=== PATIENT | female | born 1970 | race Caucasian/White ===

== ENCOUNTER 2024-03-25 10:55 | Inpatient (IN) ==
--- NOTE | 2024-03-25 11:31 | Emergency Department Note ---
History of Present Illness General Chief complaint: Illness Stated complaint: THROAT SURG/RECENT, HANDS NUMB, DIZZY, CHEST PAIN Time Seen by Provider: 03/25/24 11:13 History of Present Illness Provider complaint: Tingling chest pain difficulty breathing nausea 53-year-old female presents emergency department for tingling chest pain and shortness of breath. Patient states she recently had her parathyroid glands removed in [place] last week. She states since then she has been having the tingling in her face her arms and hands. She states that her calcium levels were within normal limits with the last checked. She states she has been taking Tums for her symptoms. No fevers. Home Medications Medication Instructions Recorded Confirmed Type dulaglutide 3 mg/0.5 mL 3 mg subcut UD 01/26/24 03/25/24 History subcutaneous pen injector ([facility]) glipizide 5 mg tablet 5 mg PO BID PRN Blood Sugar Level 01/26/24 03/25/24 History when testing lisinopril 2.5 mg tablet 2.5 mg PO HS 01/26/24 03/25/24 History meclizine 25 mg tablet 12.5 - 25 mg PO TID PRN Dizziness 01/26/24 03/25/24 History Or Vertigo scopolamine base 1 mg over 3 days 1 patch topical UD 01/26/24 03/25/24 History transdermal patch simvastatin 20 mg tablet 20 mg PO HS 01/26/24 03/25/24 History blood sugar diagnostic (OneTouch 02/12/24 02/26/24 History Ultra Test strips) lancets 33 gauge (OneTouch Delica 02/12/24 02/26/24 History Plus Lancet) furosemide 20 mg tablet 20 mg PO DAILY PRN Other 02/26/24 03/25/24 History levothyroxine 112 mcg tablet 112 mcg PO DAILY #30 tabs 03/03/24 03/25/24 Rx selenium 200 mcg tablet 200 mcg PO DAILY #30 tabs 03/03/24 03/25/24 Rx calcitriol 0.25 mcg capsule 0.25 mcg PO BID 03/25/24 03/25/24 History calcium carbonate (Tums Extra 600 mg PO TID 03/25/24 03/25/24 History Strength Smoothies) rizatriptan 10 mg disintegrating 10 mg PO DIRECTED PRN Migraine 03/25/24 03/25/24 History tablet Headache tramadol 50 mg tablet 50 mg PO DIRECTED PRN Pain 03/25/24 03/25/24 History Allergies Allergy/AdvReac Type Severity Reaction Status Date / Time canagliflozin Allergy Mild Verified 02/26/24 09:24 metformin Allergy Mild Verified 02/26/24 09:24 Past Med/Surg History Problem List (Updated 03/25/24 @ 14:23 by Jeffrey Horton MD) Chest pain (Acute) Hypomagnesemia (Acute) Thyroid nodule Medical History Hypertension Chronic daily headache 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 Hyperparathyroidism No pertinent family history COVID Surgical History History of cholecystectomy Family History Mother History of renal disease Thyroid disorder Father Heart disease Rheumatoid arthritis Brother Cancer Social History Smoking Status: Current every day smoker Tobacco Type: Cigarettes packs per day: 1; Hx Alcohol Use: No Hx Substance Use: No Preferred Language: Slovenian Feels Safe at Home: Yes Physical Exam Vital Signs Vital Signs - 24 hr 03/25/24 10:56 03/25/24 11:19 03/25/24 11:19 Temperature 36.6 C Temperature Source Temporal Artery Scan Pulse Rate 79 66 Pulse Rate [Finger] 62 Pulse Rhythm Regular Pulse Rhythm [Finger] Regular Pulse Strength [Finger] Normal Respiratory Rate 18 18 16 Respiratory Effort / Characteristics Non-Labored Spontaneous Respiratory Depth Normal Blood Pressure 179/111 H Blood Pressure [Right Arm] 156/91 H Blood Pressure Mean 133 Blood Pressure Mean [Right Arm] 112 Blood Pressure Position [Right Arm] Lying Pulse Oximetry 93 93 93 Oxygen Delivery Method Room Air Room Air Oxygen Flow Rate Sepsis Recent Fever Within 48 Hours No Sepsis New/Unexplained Change in Mental Status N/A Sepsis Action Taken by Nursing No Action Required 03/25/24 11:28 03/25/24 13:00 Temperature Temperature Source Pulse Rate 63 Pulse Rate [Finger] 78 Pulse Rhythm Pulse Rhythm [Finger] Regular Pulse Strength [Finger] Normal Respiratory Rate 18 Respiratory Effort / Characteristics Non-Labored Spontaneous Respiratory Depth Normal Blood Pressure Blood Pressure [Right Arm] 194/109 H Blood Pressure Mean Blood Pressure Mean [Right Arm] 137 Blood Pressure Position [Right Arm] Sitting Pulse Oximetry 94 Oxygen Delivery Method Room Air Nasal Cannula Oxygen Flow Rate 2 Sepsis Recent Fever Within 48 Hours Sepsis New/Unexplained Change in Mental Status Sepsis Action Taken by Nursing Physical Exam HENT: Exam performed. -Head: Normocephalic and atraumatic. -Right Ear: External ear normal. No mastoid erythema -Left Ear: External ear normal. No mastoid erythema -Mouth/Throat: The oropharynx is clear and moist. No trismus in the jaw. No dental abscesses or uvula swelling. No oropharyngeal exudate or tonsillar abscesses. EYES: Conjunctivae and EOM are normal. Pupils are equal, round, and reactive to light. Right eye exhibits no discharge. Left eye exhibits no discharge. No scleral icterus. NECK: Normal range of motion. Neck supple. No JVD present. Surgical incision is clean and dry. CV: Normal rate, regular rhythm, normal heart sounds and intact distal pulses. There is no peripheral edema. Palpable radial pulses bue. PULM/CHEST: Effort normal and breath sounds normal. No respiratory distress. No stridor. She has no wheezes. She has no rales. -Chest Wall: She exhibits no tenderness. ABD: The abdomen is soft. There is no tenderness. There is no rebound, no guarding MUSC/SKEL: Normal range of motion. There is no peripheral edema, tenderness or deformity. LYMPH: No cervical adenopathy. NEURO: Motor and sensation grossly intact. Patient was alert and oriented x 3. No cranial nerve deficit. Cerebellar tests wnl. Course Course 1113: The patient was evaluated in room C4. A complete history and physical exam was performed Cardiac monitoring: An order was placed for continuous cardiac monitoring. The monitor shows a rate of 70 with sinus rhythm interpreted by me 1220: Patient's D-dimer is elevated. Will obtain CT of the chest. Magnesium is low. Magnesium repletion will be started in the emergency department. Labs are otherwise unremarkable. 1347: Vital signs stable. CTA of the chest shows no PE. There is some edema with subcutaneous emphysema in the midline lower neck compatible with her recent surgery. Discussed with ENT at [place] Dr. Clifton. I read the CTA of the chest report verbatim to him I both he and I agree that the patient can be kept here and treated for hypomagnesemia and chest pain. He agreed that the CT findings are most likely postoperative changes and there is no need for acute surgical intervention. 1422: Spoke with Mckenzie Vidal Met the patient to Dr. Good's team. Administered Medications Magnesium Sulfate/Dextrose (Magnesium Sulfate / D5w) 1 gm in 100 mls @ 100 mls/hr IV Q1H MINDI Stop: 03/25/24 14:41 Last Admin: 03/25/24 14:03 Dose: 100 mls/hr Documented By: Infusion: 03/25/24 14:02 Dose: Infused Documented By: Admin: 03/25/24 13:04 Dose: 100 mls/hr Documented By: LIBIA Discontinued Medications Diphenhydramine HCl (Diphenhydramine 50 Mg/Ml Vial) 25 mg IV NOW STA Stop: 03/25/24 13:01 Last Admin: 03/25/24 13:12 Dose: 25 mg Documented By: LIBIA Acetaminophen (Ofirmev) 1,000 mg in 100 mls @ 400 mls/hr IV NOW STA Stop: 03/25/24 14:05 Last Admin: 03/25/24 13:59 Dose: 400 mls/hr Documented By: LIBIA Ioversol (Optiray 320 125ml) 94 ml IV ONCE ONE Stop: 03/25/24 12:50 Last Admin: 03/25/24 12:49 Dose: 94 ml Documented By: KATHARINA Lorazepam (Lorazepam 2 Mg/1 Ml Vial) 0.5 mg IV NOW STA Stop: 03/25/24 11:25 Last Admin: 03/25/24 11:57 Dose: 0.5 mg Documented By: LIBIA Metoclopramide HCl (Metoclopramide Hcl Inj 5 Mg/Ml 2 Ml Vial) 5 mg IV ONE ONE Stop: 03/25/24 13:01 Last Admin: 03/25/24 13:13 Dose: 5 mg Documented By: LIBIA Ondansetron HCl (Ondansetron Inj 2 Mg/Ml 2 Ml Vial) 4 mg IV NOW STA Stop: 03/25/24 11:32 Last Admin: 03/25/24 11:57 Dose: 4 mg Documented By: LIBIA Medical Decision Making Laboratory Data Attestation: I reviewed the patient's lab results. 03/25/24 11:15 03/25/24 11:15 Lab Results 03/25/24 Range/Units 11:15 WBC 14.13 H (4.8-10.8) K/ul RBC 5.14 (4.20-5.40) M/uL Hgb 15.2 (12.0-16.0) g/dl Hct 43.5 (37.0-47.0) % MCV 84.6 (80.0-100.0) fL MCH 29.6 (25.0-34.0) pg MCHC 34.9 (32.0-36.0) g/dL RDW Std Deviation 39.9 (36.4-46.3) fL RDW Coeff of Jeremias 12.9 (11.5-14.5) % Plt Count 279 (130-400) K/uL MPV 10.9 (9.4-12.4) fL Immature Gran % (Auto) 1.6 % Neut % (Auto) 68.7 % Lymph % (Auto) 21.9 % [place] % (Auto) 4.2 % Eos % (Auto) 3.0 % Baso % (Auto) 0.6 % Neut # (Auto) 9.71 H (1.40-6.50) K/uL Lymph # (Auto) 3.09 (1.20-3.40) K/uL [place] # (Auto) 0.59 (0.11-0.59) K/uL Eos # (Auto) 0.43 (0.00-0.50) K/uL Baso # (Auto) 0.09 (0.00-0.20) K/uL Immature Gran # (Auto) 0.22 H (0.01-0.20) K/uL PT 11.0 (9.0-12.0) Seconds INR 1.0 (0.9-1.1) APTT 28 (21-31) Seconds PTT Ratio 1.0 D-Dimer 570 H* (0-500) ug/L FEU Sodium 139 (136-145) mmol/L Potassium 3.4 L (3.5-5.1) mmol/L Chloride 102 (98-107) mmol/L Carbon Dioxide 24 (21-32) mmol/L Anion Gap 13 H (3-11) BUN 11 (6-23) mg/dl Creatinine 1.04 (0.6-1.2) mg/dl Est Cr Clr Drug Dosing 65.8 ml/min eGFR 63.47 BUN/Creatinine Ratio 10.6 (10-20) Glucose 250 H (70-99(Fasting)) mg/dl Calcium 9.9 (8.6-10.3) mg/dl Magnesium 1.1 L (1.7-2.4) mg/dl Troponin I High Sens 3.1 (0-14) pg/ml Lipase 17 (11-82) U/L Imaging Data Radiologist's Impression: Chest X-Ray 03/25/24 11:19 XR chest 1V portable CLINICAL HISTORY: Chest pain, nonspecific COMPARISON STUDY: Chest radiograph July 10, 2022. FINDINGS: Lung volumes are mildly diminished. Moderate linear bibasilar densities are present. There is no pneumothorax or pleural effusion. There is no evidence for pulmonary edema. Cardiomediastinal silhouette is unremarkable. IMPRESSION: Linear bibasilar densities. The findings favor atelectasis on this hypoventilatory study. Although less likely, an infectious process could appear similar. Follow-up PA and lateral chest radiograph in one month to ensure resolution are recommended. ACT 112: Negative or not required by law. Electronically signed by: Armando Santos M.D. 03/25/2024 11:50 AM Chest CTA 03/25/24 12:21 CT angio chest PE protocol CT DOSE: 745.96 mGy.cm HISTORY: 53 years-old Female with ro PE. Acute chest and neck pain with recent thyroid surgery. TECHNIQUE: Multiple CTA images of the chest were obtained after the intravenous administration of 120 ml Optiray. Coronal and sagittal MIPS were obtained from the axial data set and were submitted for review. All measurements were obtained according to NASCET criteria. A dose lowering technique was utilized adhering to the principles of ALARA. COMPARISON: Chest radiograph of same day FINDINGS: CTA: Heart is within normal limits in size. No pericardial effusion. Unremarkable thoracic aorta. Unremarkable pulmonary artery. CT CHEST: Soft tissue swelling with edema and subcutaneous emphysema noted within the lower neck/thyroid bed. Heterogeneity of the tissues is difficult to evaluate secondary to the edema. Small focus of subcutaneous stranding/hematoma within the left upper chest wall on image 179. There is stranding extending into the retrosternal/anterior mediastinum. No drainable fluid collections identified. No lymphadenopathy. Trace right and small left pleural effusions. There is no pneumothorax or pneumomediastinum. Bibasilar groundglass and linear consolidation. The central airways are patent. No acute upper abdominal abnormality. No acute fracture. IMPRESSION: 1. Edema with subcutaneous emphysema within the midline lower neck compatible with patient history of recent thyroid surgery with edema tracking into the superior mediastinum. No discrete drainable postoperative fluid collections identified. 2. No pulmonary emboli identified. 3. Trace left and small right pleural effusions with bibasilar linear consolidation favoring atelectasis. Pneumonia considered less likely. 4. No pneumothorax or lymphadenopathy. ACT 112: Negative or not required by law. The above report was generated using voice recognition software. It may contain grammatical, syntax or spelling errors. Electronically signed by: Greg Manuel M.D. 03/25/2024 1:10 PM ECG Data Attestation: I personally reviewed and interpreted this ECG as follows: Rate (beats per minute): 69 Rhythm: + normal sinus ECG Intervals/blocks: + Normal QRS, + Normal CO and + Normal QT-c ECG ST segments: + Normal ST segments MDM Narrative 1113: The patient was evaluated in room C4. A complete history and physical exam was performed Cardiac monitoring: An order was placed for continuous cardiac monitoring. The monitor shows a rate of 70 with sinus rhythm interpreted by me 1220: Patient's D-dimer is elevated. Will obtain CT of the chest. Magnesium is low. Magnesium repletion will be started in the emergency department. Labs are otherwise unremarkable. 1347: Vital signs stable. CTA of the chest shows no PE. There is some edema with subcutaneous emphysema in the midline lower neck compatible with her recent surgery. Discussed with ENT at [place] Dr. Clifton. I read the CTA of the chest report verbatim to him I both he and I agree that the patient can be kept here and treated for hypomagnesemia and chest pain. He agreed that the CT findings are most likely postoperative changes and there is no need for acute surgical intervention. 1422: Spoke with Mckenzie Vidal Met the patient to Dr. Good's team. Impression & Plan Hypomagnesemia, Chest pain Discharge Plan Visit Data Chief Complaint: Illness Stated Complaint: THROAT SURG/RECENT, HANDS NUMB, DIZZY, CHEST PAIN ED Provider: Jeffrey Horton Discharge Problem: Hypomagnesemia, Chest pain Patient Disposition: Admitted As Inpatient Forms Stand Alone Forms: My [facility] Prescriptions Prescriptions: No Action selenium 200 mcg tablet 200 mcg PO DAILY Qty: 30 2RF levothyroxine 112 mcg tablet 112 mcg PO DAILY Qty: 30 2RF (DME) OneTouch Ultra Test Strip See Rx Instructions .Route Rx Instructions: Test blood sugars three times a day (DME) lancets [OneTouch Delica Plus Lancet] 33 gauge misc See Rx Instructions .Route Rx Instructions: Test blood sugar three times a day furosemide 20 mg tablet 20 mg PO DAILY PRN (Reason: Other) meclizine 25 mg tablet 12.5 - 25 mg PO TID PRN (Reason: Dizziness Or Vertigo) simvastatin 20 mg tablet 20 mg PO HS scopolamine base 1 mg over 3 days patch 3 day 1 patch topical UD Rx Instructions: APPLY ONE PATCH TOPICALLY BEHIND ONE EAR 4 HOURS BEFORE EVENT AND CHANGE EVERY 72 HOURS DIRECTED lisinopril 2.5 mg tablet 2.5 mg PO HS glipizide 5 mg tablet 5 mg PO BID PRN (Reason: Blood Sugar Level when testing) Trulicity 3 mg/0.5 mL pen injector 3 mg SUBCUT UD Rx Instructions: not currently using but wanted left on list. Tums Extra Strength Smoothies 300 mg (750 mg) Tablet,Chewable 600 mg PO TID tramadol 50 mg tablet 50 mg PO DIRECTED PRN (Reason: Pain) rizatriptan 10 mg tablet,disintegrating 10 mg PO DIRECTED PRN (Reason: Migraine Headache) calcitriol 0.25 mcg capsule 0.25 mcg PO BID Referrals Referrals: Ada Waterman PA-C [Primary Care Provider] - Discharge Problem: Chest pain Qualifiers: Chest pain type: unspecified Qualified Code(s): R07.9 - Chest pain, unspecified
[2024-03-25 11:51] LABS: Basophils # (auto) 0.09 K/uL (0.00-0.20); Basophils % (auto) 0.6 %; Eosinophils # (auto) 0.43 K/uL (0.00-0.50); Hematocrit (blood only) 43.5 % (37.0-47.0); Hemoglobin 15.2 g/dl (12.0-16.0); Immature Granulocytes # (auto) 0.22 K/uL (0.01-0.20); Immature Granulocytes % (auto) 1.6 %; Lymphocytes # (auto) 3.09 K/uL (1.20-3.40); Lymphocytes % (auto) 21.9 %; Mean Corpuscular Hemoglobin 29.6 pg (25.0-34.0); Mean Corpuscular Hgb Conc 34.9 g/dL (32.0-36.0); Mean Corpuscular Volume 84.6 fL (80.0-100.0); Mean Platelet Volume 10.9 fL (9.4-12.4); Monocytes # (auto) 0.59 K/uL (0.11-0.59); Monocytes % (auto) 4.2 %; Neutrophils # (auto) 9.71 K/uL (1.40-6.50); Neutrophils % (auto) 68.7 %; Platelet Count 279 K/uL (130-400); RDW Coefficient of Variation 12.9 % (11.5-14.5); RDW Standard Deviation 39.9 fL (36.4-46.3); Red Blood Count 5.14 M/uL (4.20-5.40); White Blood Count 14.13 K/ul (4.8-10.8)
--- NOTE | 2024-03-25 11:52 | XRay Report ---
XR chest 1V portable CLINICAL HISTORY: Chest pain, nonspecific COMPARISON STUDY: Chest radiograph July 10, 2022. FINDINGS: Lung volumes are mildly diminished. Moderate linear bibasilar densities are present. There is no pneumothorax or pleural effusion. There is no evidence for pulmonary edema. Cardiomediastinal s ilhouette is unremarkable. IMPRESSION: Linear bibasilar densities. The findings favor atelectasis on this hypoventilatory study . Although less likely, an infectious process could appear similar. Follow-up PA and lateral chest ra diograph in one month to ensure resolution are recommended. ACT 112: Negative or not required by law. Electronically signed by: Armando Santos M.D. 03/25/2024 11:50 AM
[2024-03-25 11:53] LABS: BUN Creatinine Ratio 10.6 (10-20); Calcium 9.9 mg/dl (8.6-10.3); Creatinine Clr Calc Pharmacy 65.8 ml/min; Potassium 3.4 mmol/L (3.5-5.1)
[2024-03-25] MEDS: LORazepam 2 MG/1 ML VIAL IV STA (11:57)
[2024-03-25] MEDS: ONDANSETRON INJ 2 MG/ML 2 ML VIAL IV STA (11:57)
[2024-03-25 11:59] LABS: Troponin I High Sensitivity 3.1 pg/ml (0-14)
[2024-03-25 12:18] LABS: Partial Thromboplastin Time 28 Seconds (21-31)
[2024-03-25 12:20] LABS: D Dimer 570 ug/L FEU (0-500)
[2024-03-25 12:27] LABS: Magnesium 1.1 mg/dl (1.7-2.4)
[2024-03-25] MEDS: OPTIRAY 320 125ml IV ONE (12:49)
[2024-03-25] MEDS: MAGNESIUM SULFATE / D5W 1 GM/100 ML BAG IV SCH (13:04)
[2024-03-25] MEDS: diphenhydrAMINE 50 MG/ML VIAL IV STA (13:12)
--- NOTE | 2024-03-25 13:12 | CT Scan Report ---
CT angio chest PE protocol CT DOSE: 745.96 mGy.cm HISTORY: 53 years-old Female with ro PE. Acute chest and neck pain with recent thyroid surgery. TECHNIQUE: Multiple CTA images of the chest were obtained after the intravenous administration of 120 ml Optiray. Coronal and sagittal MIPS were obtained from the axial data set and were submitted for review. All measurements were obtained according to NASCET criteria. A dose lowering technique was u tilized adhering to the principles of ALARA. COMPARISON: Chest radiograph of same day FINDINGS: CTA: Heart is within normal limits in size. No pericardial effusion. Unremarkable thoracic aorta. Unremark able pulmonary artery. CT CHEST: Soft tissue swelling with edema and subcutaneous emphysema noted within the lower neck/thyroid bed. H eterogeneity of the tissues is difficult to evaluate secondary to the edema. Small focus of subcutane ous stranding/hematoma within the left upper chest wall on image 179. There is stranding extending in to the retrosternal/anterior mediastinum. No drainable fluid collections identified. No lymphadenopat hy. Trace right and small left pleural effusions. There is no pneumothorax or pneumomediastinum. Biba silar groundglass and linear consolidation. The central airways are patent. No acute upper abdominal abnormality. No acute fracture. IMPRESSION: 1. Edema with subcutaneous emphysema within the midline lower neck compatible with patient history of recent thyroid surgery with edema tracking into the superior mediastinum. No discrete drainable post operative fluid collections identified. 2. No pulmonary emboli identified. 3. Trace left and small right pleural effusions with bibasilar linear consolidation favoring atelecta sis. Pneumonia considered less likely. 4. No pneumothorax or lymphadenopathy. ACT 112: Negative or not required by law. The above report was generated using voice recognition software. It may contain grammatical, syntax o r spelling errors. Electronically signed by: Greg Manuel M.D. 03/25/2024 1:10 PM
[2024-03-25] MEDS: METOCLOPRAMIDE HCL INJ 5 MG/ML 2 ML VIAL IV ONE (13:13)
[2024-03-25] MEDS: ACETAMINOPHEN 1,000 MG/100 ML VIAL IV STA (13:59)
[2024-03-25] MEDS ORDERED: NICOTINE 14 MG/24 HR PATCH TD SCH (14:45)
[2024-03-25] MEDS ORDERED: NICOTINE 14 MG/24 HR PATCH TD ONE (15:00)
--- NOTE | 2024-03-25 15:09 | Electrocardiogram Report ---
Test Reason : Blood Pressure : */* mmHG Vent. Rate : 69 BPM Atrial Rate : 69 BPM P-R Int : 182 ms QRS Dur : 100 ms QT Int : 426 ms P-R-T Axes : 63 36 48 degrees QTcB Int : 456 ms Normal sinus rhythm Possible Left atrial enlargement Borderline ECG When compared with ECG of 26-Jan-2024 09:17, QT has lengthened Confirmed by Tom Stinson ([id number]) on 03/25/2024 3:08:32 PM Referred By: Sarah Dickerson Confirmed By: Tom Stinson
--- NOTE | 2024-03-25 15:32 | History & Physical Report ---
Date of Service March 25, 2024 Assessment & Plan (1) S/P parathyroidectomy: (2) Chest pain: (3) Hypomagnesemia: (4) Migraine: (5) T2DM (type 2 diabetes mellitus): Plan This is a 53-year-old female who has a significant past medical history of T2DM, diabetic peripheral neuropathy, tobacco use disorder, primary hyperparathyroidism and anxiety who presents to ED secondary to chest pain, shortness of breath, numbness and tingling to face and upper extremities. status post parathyroidectomy on 03/21/[address] Nixon Narayanan at [facility] Hypomagnesemia Hypokalemia Paraesthesias admit to tele supplement potassium and magnesium pt with poor oral intake over the last several days, IV fluid NSS +20 mEq KCl 80 cc/h for 3 L replace potassium orally, started on magnesium oxide 400 mg twice daily her calcium and ionized calcium are normal --Chest CTA:. Edema with subcutaneous emphysema within the midline lower neck compatible with patient history of recent thyroid surgery with edema tracking into the superior mediastinum. No discrete drainable postoperative fluid collections identified. This image was reviewed with [facility] director long term care ENT DR. Clifton which felt to be normal post op findings Hypoxia Atelectasis encourage incentive spirometry q1hr while away likely 2/2 to ativan administration, wean O2 as able procal negative, minimal cough, doubt pneumonia Chest pain feel likely related to above/anxiety but will r/o ACS while inpt trend trops, echocardiogram Anxiety pt does appear to be suffering from anxiety from recent medical events Consider anxiolytic vs psych consult if continues Tobacco abuse encourage cessation nicotine patch ordered Migraine hx pt with chronic head, n/v and paraesthesias which may be leading to complex migraine toradol prn, triptan prn, antiemetics consult neuro recent MRI 03/03/24 was unremarkable T2DM hold oral hypoglycemics, novolog per protocol A1C in Jan was 7.4, given poor intake will hold on lantus coverage for now HTN: pt hypertensive in ED, improving after ativan, continue lisinopril, monitor Hypothyroidism: continue supplement, tsh in a.m. DVT ppx: SCD for now, if to remain hospitalized > 24hr add chemical px FULL CODE PCP: Yoselin DIspo: admit to tele Pt was seen and examined in collaboration with Dr. Good, please see addendum I spent a total of 76 minutes reviewing notes, outpatient records, labs, medication, coordinating, documenting and providing care for this patient excluding time spent in the performance of separately billed services. History of Present Illness Chief Complaint: chest pain, sob, n/t to face and upper extremities Primary Care Provider: Ada Waterman PA-C This is a 53-year-old female who has a significant past medical history of T2DM, diabetic peripheral neuropathy, tobacco use disorder, primary hyperparathyroidism and anxiety who presents to ED secondary to chest pain, shortness of breath, numbness and tingling to face and upper extremities. Of significance patient underwent a parathyroid exploration with parathyroidectomy on 03/21/[address] Nixon Dickerson. Since that surgery she was discharged to home and has been feeling unwell. She has been not been eating/drinking much due to nausea. She also reports intermittent tingling to her face, lips and upper extremities. She states that she was told when this occurs that she is to chew 2 extra Tums, wait 30 minutes and if still present to 2 more. She is very anxious that nothing has gone as planned since prior to the surgery. She was told she was only going to have 1 parathyroid gland removed and ended up having 3.5. She states she is expected to go back to work next week and does not know how she is going to do so. She states last evening and this morning she developed substernal chest pain with associated shortness of breath that accompanied her numbness and tingling. The chest pain and shortness of breath lasted for approximately 10 to 15 minutes. It occurred while she was at rest. Nothing made it better or worse. She is never experienced any like this before. She feels that her chest pain occurs whenever she is very, "worked up." She states that prior to her surgery she has been having intermittent tearful episodes. She states this is much worse since her surgery. She did have outpatient blood work done the past 2 days that showed a normal calcium. Whenever she called her ENT she was referred to ED to her due to her symptoms. In ED patient remained hemodynamically stable. She was mildly hypertensive in the ED. She did become hypoxic requiring oxygen via nasal cannula supplementation after administration of IV Ativan due to anxiety. She did have a mild leukocytosis of 14,000. Her potassium was low at 3.4 and magnesium was low at 1.1. She underwent a chest CTA due to an elevated D-dimer which showed expected postoperative changes. ED provider spoke with on-call ENT at [facility] and reviewed imaging who agreed. She reports she lives and sister. Her sister helps manage her medical problems. 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 She smokes 1/2 ppd. She also reports chronic headaches. She has been using scopolamine patches regularly and even more than prescribed. She is been using the mostly daily. When she takes them off she gets a severe headache, nausea and vomiting. Allergies Allergy/AdvReac Type Severity Reaction Status Date / Time canagliflozin Allergy Mild Verified 02/26/24 09:24 metformin Allergy Mild Verified 02/26/24 09:24 Home Medications Medication Instructions Recorded Confirmed Type dulaglutide 3 mg/0.5 mL 3 mg subcut UD 01/26/24 03/25/24 History subcutaneous pen injector (Trulicity) glipizide 5 mg tablet 5 mg PO BID PRN Blood Sugar Level 01/26/24 03/25/24 History when testing lisinopril 2.5 mg tablet 2.5 mg PO HS 01/26/24 03/25/24 History meclizine 25 mg tablet 12.5 - 25 mg PO TID PRN Dizziness 01/26/24 03/25/24 History Or Vertigo scopolamine base 1 mg over 3 days 1 patch topical UD 01/26/24 03/25/24 History transdermal patch simvastatin 20 mg tablet 20 mg PO HS 01/26/24 03/25/24 History blood sugar diagnostic (OneTouch 02/12/24 02/26/24 History Ultra Test strips) lancets 33 gauge (OneTouch Delica 02/12/24 02/26/24 History Plus Lancet) furosemide 20 mg tablet 20 mg PO DAILY PRN Other 02/26/24 03/25/24 History levothyroxine 112 mcg tablet 112 mcg PO DAILY #30 tabs 03/03/24 03/25/24 Rx selenium 200 mcg tablet 200 mcg PO DAILY #30 tabs 03/03/24 03/25/24 Rx calcitriol 0.25 mcg capsule 0.25 mcg PO BID 03/25/24 03/25/24 History calcium carbonate (Tums Extra 600 mg PO TID 03/25/24 03/25/24 History Strength Smoothies) rizatriptan 10 mg disintegrating 10 mg PO DIRECTED PRN Migraine 03/25/24 03/25/24 History tablet Headache tramadol 50 mg tablet 50 mg PO DIRECTED PRN Pain 03/25/24 03/25/24 History Past Med/Surg History Problem List (Updated 03/25/24 @ 15:53 by Mckenzie Vidal PA-C) Migraine S/P parathyroidectomy Chest pain (Acute) Hypomagnesemia (Acute) Thyroid nodule Medical History (Updated 03/25/24 @ 15:53 by Mckenzie Vidal PA-C) T2DM (type 2 diabetes mellitus) Hypertension Chronic daily headache 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 Hyperparathyroidism No pertinent family history COVID Surgical History (Updated 03/25/24 @ 15:53 by Mckenzie Vidal PA-C) History of cholecystectomy Family History Mother History of renal disease Thyroid disorder Father Heart disease Rheumatoid arthritis Brother Cancer Social History Smoking Status: Current every day smoker Tobacco Type: Cigarettes packs per day: 1; Hx Alcohol Use: No Hx Substance Use: No Preferred Language: Micronesian Feels Safe at Home: Yes Review of Systems Review of Systems: All systems reviewed & are unremarkable except as noted in HPI & below Physical Exam Physical Exam: Constitutional: WD/WN, acute ill appearing F, appears exhausted, anxious, vitals as above, sitting up in bed, pleasant, conversing easily Head: Normocephalic, Atraumatic Eyes: PERRL, conjunctivae normal, anicteric sclerae ENMT: external ear and nose normal, oropharynx dry Neck: trachea midline, no thyromegaly +incision, surrounding soft tissue edema no erythema Respiratory: normal respiratory effort, lungs clear to auscultation, +rales at based no wheeze/rhonchi. Normal insp/exp effort, no accessory muscle use Cardiovascular: RRR, no murmur, no edema Vessels: no JVD or carotid bruit Chest: normal inspection of chest Abdomen: normal bowel sounds, soft, nontender, no hepatosplenomegaly Musculoskeletal: no cyanosis or clubbing, extremities motor strength 5/5 Skin: no rashes, warm and dry normal turgor Neurologic: PERRL, EOMI, accommodation nl, no face palsy, no dysarthria CN's II-XI intact bilaterally and moves all extremities Psychiatric: A+Ox3, euthymic affect Lymphatic: no cervical or axillary lymphadenopathy : deferred Results & Data Results & Data Vital Signs (Past 12 Hours) Vital Signs Temp Pulse Pulse Resp BP BP Pulse Ox 03/25/24 14:00 66 18 152/92 H 94 03/25/24 13:00 78 18 194/109 H 94 03/25/24 11:28 63 03/25/24 11:19 66 16 93 03/25/24 11:19 62 18 156/91 H 93 03/25/24 10:56 36.6 C 79 18 179/111 H 93 O2 Del Method O2 Flow Rate 03/25/24 14:00 Nasal Cannula 4 03/25/24 13:00 Room Air, Nasal Cannula 2 03/25/24 11:28 03/25/24 11:19 Room Air 03/25/24 11:19 Room Air 03/25/24 10:56 Laboratory Results I have independently reviewed and interpreted patient's admitting labs including CBC, CMP, PTT, PT/INR, mag and troponin. Diagnostic Findings Chest X-Ray 03/25/24 11:19 XR chest 1V portable CLINICAL HISTORY: Chest pain, nonspecific COMPARISON STUDY: Chest radiograph July 10, 2022. FINDINGS: Lung volumes are mildly diminished. Moderate linear bibasilar densities are present. There is no pneumothorax or pleural effusion. There is no evidence for pulmonary edema. Cardiomediastinal silhouette is unremarkable. IMPRESSION: Linear bibasilar densities. The findings favor atelectasis on this hypoventilatory study. Although less likely, an infectious process could appear similar. Follow-up PA and lateral chest radiograph in one month to ensure resolution are recommended. ACT 112: Negative or not required by law. Electronically signed by: Armando Santos M.D. 03/25/2024 11:50 AM Chest CTA 03/25/24 12:21 CT angio chest PE protocol CT DOSE: 745.96 mGy.cm HISTORY: 53 years-old Female with ro PE. Acute chest and neck pain with recent thyroid surgery. TECHNIQUE: Multiple CTA images of the chest were obtained after the intravenous administration of 120 ml Optiray. Coronal and sagittal MIPS were obtained from the axial data set and were submitted for review. All measurements were obtained according to NASCET criteria. A dose lowering technique was utilized adhering to the principles of ALARA. COMPARISON: Chest radiograph of same day FINDINGS: CTA: Heart is within normal limits in size. No pericardial effusion. Unremarkable thoracic aorta. Unremarkable pulmonary artery. CT CHEST: Soft tissue swelling with edema and subcutaneous emphysema noted within the lower neck/thyroid bed. Heterogeneity of the tissues is difficult to evaluate secondary to the edema. Small focus of subcutaneous stranding/hematoma within the left upper chest wall on image 179. There is stranding extending into the retrosternal/anterior mediastinum. No drainable fluid collections identified. No lymphadenopathy. Trace right and small left pleural effusions. There is no pneumothorax or pneumomediastinum. Bibasilar groundglass and linear consolidation. The central airways are patent. No acute upper abdominal abnormality. No acute fracture. IMPRESSION: 1. Edema with subcutaneous emphysema within the midline lower neck compatible with patient history of recent thyroid surgery with edema tracking into the superior mediastinum. No discrete drainable postoperative fluid collections identified. 2. No pulmonary emboli identified. 3. Trace left and small right pleural effusions with bibasilar linear consolidation favoring atelectasis. Pneumonia considered less likely. 4. No pneumothorax or lymphadenopathy. ACT 112: Negative or not required by law. The above report was generated using voice recognition software. It may contain grammatical, syntax or spelling errors. Electronically signed by: Greg Manuel M.D. 03/25/2024 1:10 PM Medications Administered Medication List Potassium Chloride/Sodium Chloride (Normal Saline W/20 Meq Kcl) 20 meq in 1,000 mls @ 80 mls/hr IV .[id number] [facility] Stop: 03/26/24 04:59 Last Admin: 03/25/24 15:37 Dose: 80 mls/hr Documented By: LIBIA Discontinued Medications Diphenhydramine HCl (Diphenhydramine 50 Mg/Ml Vial) 25 mg IV NOW STA Stop: 03/25/24 13:01 Last Admin: 03/25/24 13:12 Dose: 25 mg Documented By: LIBIA Magnesium Sulfate/Dextrose (Magnesium Sulfate / D5w) 1 gm in 100 mls @ 100 mls/hr IV Q1H MINDI Stop: 03/25/24 14:41 Last Infusion: 03/25/24 15:25 Dose: Infused Documented By: Admin: 03/25/24 14:03 Dose: 100 mls/hr Documented By: Infusion: 03/25/24 14:02 Dose: Infused Documented By: Admin: 03/25/24 13:04 Dose: 100 mls/hr Documented By: LIBIA Acetaminophen (Ofirmev) 1,000 mg in 100 mls @ 400 mls/hr IV NOW STA Stop: 03/25/24 14:05 Last Infusion: 03/25/24 14:20 Dose: Infused Documented By: Admin: 03/25/24 13:59 Dose: 400 mls/hr Documented By: LIBIA Ioversol (Optiray 320 125ml) 94 ml IV ONCE ONE Stop: 03/25/24 12:50 Last Admin: 03/25/24 12:49 Dose: 94 ml Documented By: KATHARINA Lorazepam (Lorazepam 2 Mg/1 Ml Vial) 0.5 mg IV NOW STA Stop: 03/25/24 11:25 Last Admin: 03/25/24 11:57 Dose: 0.5 mg Documented By: LIBIA Metoclopramide HCl (Metoclopramide Hcl Inj 5 Mg/Ml 2 Ml Vial) 5 mg IV ONE ONE Stop: 03/25/24 13:01 Last Admin: 03/25/24 13:13 Dose: 5 mg Documented By: LIBIA Nicotine (Nicotine 14 Mg/24 Hr Patch) 1 patch TD ONE ONE Stop: 03/25/24 15:01 Last Admin: 03/25/24 15:37 Dose: 1 patch Documented By: LIBIA Ondansetron HCl (Ondansetron Inj 2 Mg/Ml 2 Ml Vial) 4 mg IV NOW STA Stop: 03/25/24 11:32 Last Admin: 03/25/24 11:57 Dose: 4 mg Documented By: LIBIA Potassium Chloride (Potassium Chloride Crtab 20 Meq Tabcr) 40 meq PO NOW STA Stop: 03/25/24 14:29 Last Admin: 03/25/24 15:36 Dose: 40 meq Documented By: LIBIA ECG Additional Comments: I have independently reviewed and interpreted patient's admitting EKG which revealed: 69 bpm, NSR Code Status & VTE Plan Code Status FULL CODE Supervising Physician Co-Signing Physician Notes Attending addendum: The patient was seen and examined in emergency room She is status post parathyroidectomy on 03/21/2024 in [place] and she has not been feeling well since then Complains to have nausea and vomiting and has not been eating that much She also has tingling involving the upper extremities mainly on the right than the left side and tingling and numbness involving the face associated with headache which has been ongoing since January 04 when the diagnosis was made initially She has noted to be very anxious in the emergency room and with remarkable findings of hypomagnesemia and hypokalemia in the blood test on examination Lying in bed with anxiety and has been requiring 4 L to maintain saturation Hemodynamically stable, afebrile with a blood pressure on the upper side at 158/93 Chestclear to auscultate bilaterally HeartS1-S2, regular Extremities negative for any edema CNSalert, awake and oriented x 3. No focal sensory or motor deficit appreciated Her admission labs, EKG and imaging studies reviewed. Hyperparathyroidism status post recent surgery on of this monthcalcium level remains normal Ongoing headache since January with negative MRI scan as an outpatient recently Will get a neurology consult likely she has migraine with tingling and numbness involving the hands face and headache mostly on the left side Electrolyte imbalance mainly with hypomagnesemia and hypokalemia which will be replaced and monitor Agree with assessment plan as outlined above by Nancy Morillo PA-C and take the full responsibility of care Dr Maty Good (2) Chest pain Chest pain type: unspecified Qualified Code(s): R07.9 - Chest pain, unspecified
[2024-03-25] MEDS: POTASSIUM CHLORIDE CRTAB 20 MEQ TABCR PO STA (15:36)
[2024-03-25] MEDS: NSS + 20MEQ KCL 20 MEQ/1,000 ML BAG IV SCH (15:37)
[2024-03-25] MEDS: NICOTINE 14 MG/24 HR PATCH TD ONE (15:37)
[2024-03-25 15:48] LABS: Magnesium 1.9 mg/dl (1.7-2.4)
[2024-03-25 15:52] LABS: Troponin I High Sensitivity 2.6 pg/ml (0-14)
[2024-03-25] MEDS: KETOROLAC TROMETHAMINE 15 MG/ML VIAL IV ONE (15:53)
[2024-03-25] MEDS ORDERED: DEXTROSE 50% 50 ML SYRINGE IV PRN (17:16)
[2024-03-25] MEDS ORDERED: GLUCOSE 40% GEL 15 GM TUBE PO PRN (17:16)
[2024-03-25] MEDS ORDERED: GLUCAGON FOR INJ 1 MG VIAL SQ PRN (17:16)
[2024-03-25] MEDS ORDERED: CARBOHYDRATES FOR HYPOGLYCEMIA PO PRN (17:16)
[2024-03-25] MEDS ORDERED: GLUCOSE 10 TAB/TUBE PO PRN (17:16)
[2024-03-25] MEDS: INSULIN ASPART PER UNIT CHARGE SC SCH (17:55)
[2024-03-25] MEDS: ONDANSETRON INJ 2 MG/ML 2 ML VIAL IV PRN (17:55)
--- NOTE | 2024-03-25 18:19 | Neurology Consultation ---
Date of Consultation March 25, 2024 Assessment & Plan (1) Hypomagnesemia: face and bilateral hand numbness in a 53F with a PMH of migraine, anxiety and tobacco abuse. Symptoms have currently resolved. Neurologic symptoms associated with migraine still follow a typical localization pattern and arent bilateral. In this situation since the symptoms resolved with repletion of her Mg I suspect that this was the cause. Plan no further neurologic work up Telehealth Consultation Telehealth Information Telehealth Information: I performed this visit using a real-time telehealth connection between my location and the patients location ([facility]). After connecting through interactive tele-video, patient was identified by name and date of and/or wristband check.Patient (or authorized healthcare textile machinery sales representative) was informed that this was a telemedicine visit and it was being conducted confidentially over secure lines. My office door was closed and no one else was present in the room with me.Patient (or authorized healthcare textile machinery sales representative) provided consent to proceed with the visit, expressed an understanding of privacy and security of the telemedicine visit, and gave permission to have a hospital textile machinery sales representative in the room in order to assist with the visit and to conduct portions of the visit, as needed. I informed the patient (or authorized healthcare textile machinery sales representative) that I reviewed their record and presented the opportunity for them to ask any questions regarding the visit today. The patient agreed to participate. History of Present Illness Reason for Consultation: migraine Attending Physician: Daniel Good MD History of Present Illness Regina Purcell is a 53F with a PMH of migraine, tobacco abuse, anxiety, HTN and HLD who presented to the ED with numbness of both hands and her face. She went to be last night feeling normal. When she woke up this morning she noticed numbness in her bilateral hands and around her mouth. This numbness then started spreading up her arms and covered her whole face. She has a long history of headaches but has never had numbness like this before. The symtpoms lasted until she was in the ED and then they resolved after she was given magnesium. She recently had her parathyroid glands removed and hasn't been eating or drinking as a result. She denies any feves, chest pain or SOB. She denies vision changes, slurred speech, weakness or vertigo. Allergies Allergy/AdvReac Type Severity Reaction Status Date / Time canagliflozin Allergy Mild Verified 02/26/24 09:24 metformin Allergy Mild Verified 02/26/24 09:24 Home Medications Medication Instructions Recorded Confirmed Type dulaglutide 3 mg/0.5 mL 3 mg subcut UD 01/26/24 03/25/24 History subcutaneous pen injector (Trulicity) glipizide 5 mg tablet 5 mg PO BID PRN Blood Sugar Level 01/26/24 03/25/24 History when testing lisinopril 2.5 mg tablet 2.5 mg PO HS 01/26/24 03/25/24 History meclizine 25 mg tablet 12.5 - 25 mg PO TID PRN Dizziness 01/26/24 03/25/24 History Or Vertigo scopolamine base 1 mg over 3 days 1 patch topical UD 01/26/24 03/25/24 History transdermal patch simvastatin 20 mg tablet 20 mg PO HS 01/26/24 03/25/24 History blood sugar diagnostic (OneTouch 02/12/24 02/26/24 History Ultra Test strips) [facility] 02/12/24 02/26/24 History Plus Lancet) furosemide 20 mg tablet 20 mg PO DAILY PRN Other 02/26/24 03/25/24 History levothyroxine 112 mcg tablet 112 mcg PO DAILY #30 tabs 03/03/24 03/25/24 Rx selenium 200 mcg tablet 200 mcg PO DAILY #30 tabs 03/03/24 03/25/24 Rx calcitriol 0.25 mcg capsule 0.25 mcg PO BID 03/25/24 03/25/24 History calcium carbonate (Tums Extra 600 mg PO TID 03/25/24 03/25/24 History Strength Smoothies) rizatriptan 10 mg disintegrating 10 mg PO DIRECTED PRN Migraine 03/25/24 03/25/24 History tablet Headache tramadol 50 mg tablet 50 mg PO DIRECTED PRN Pain 03/25/24 03/25/24 History Patient History Medical History (Updated 03/25/24 @ 15:53 by Mckenzie Vidal PA-C) T2DM (type 2 diabetes mellitus) Hypertension Chronic daily headache 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 Hyperparathyroidism No pertinent family history COVID Surgical History (Updated 03/25/24 @ 15:53 by Mckenzie Vidal PA-C) History of cholecystectomy Family History Mother History of renal disease Thyroid disorder Father Heart disease Rheumatoid arthritis Brother Cancer Social History Smoking Status: Current every day smoker Tobacco Type: Cigarettes packs per day: 1; Cigarettes Per Day: 1 pack; Second Hand Exposure: Yes; Do You Dip or Chew Tobacco: No; Hx Alcohol Use: No Hx Substance Use: No Preferred Language: Luxembourgish Communication Ability: Effective Insurance Application Investigator Required: No Beliefs That Will Affect Care: None Current Living Situation: Spouse Feels Safe at Home: Yes Safety Concerns: Feels Safe At This Time Assistive Devices: None Physical Exam Mental Status:alert, oriented to time, place, person, normal recent memory, normal remote memory, normal attention span, normal concentration, normal language, and normal fund of knowledge Cranial Nerves: CN 2 - no visual defect on confrontation and pupils round, equal, reactive to light CN 3, 4, 6 - extra-ocular movements intact and no nystagmus CN 5 - facial sensation intact CN 7 - no facial asymmetry CN 8 - intact hearing CN 9, 10 - palate symmetric, normal gag CN 11 - good shoulder shrug CN 12 - tongue midline MOTOR: Strength was at least antigravity throughout, Pronator drift was absent, and There were no abnormal movements SENSATION: intact GAIT: deferred COORDINATION: no ataxia with finger to nose testing and heel to pruitt testing REFLEXES: cannot assess over telemedicine Results & Data Vital Signs (Past 12 Hours) Vital Signs Temp Pulse Pulse Resp BP BP Pulse Ox 03/25/24 18:03 75 03/25/24 17:23 36.9 C 62 18 177/88 H 92 03/25/24 17:17 60 18 158/93 H 94 03/25/24 17:16 03/25/24 16:00 60 18 158/93 H 94 03/25/24 15:35 74 03/25/24 15:30 69 18 142/85 H 94 03/25/24 14:00 66 18 152/92 H 94 03/25/24 13:00 78 18 194/109 H 94 03/25/24 11:28 63 03/25/24 11:19 66 16 93 03/25/24 11:19 62 18 156/91 H 93 03/25/24 10:56 36.6 C 79 18 179/111 H 93 Pulse Ox O2 Del Method O2 Del Method O2 Flow Rate 03/25/24 18:03 03/25/24 17:23 Room Air 03/25/24 17:17 Nasal Cannula 4 03/25/24 17:16 92 Room Air 03/25/24 16:00 Nasal Cannula 4 03/25/24 15:35 03/25/24 15:30 Nasal Cannula 3 03/25/24 14:00 Nasal Cannula 4 03/25/24 13:00 Room Air, Nasal Cannula 2 03/25/24 11:28 03/25/24 11:19 Room Air 03/25/24 11:19 Room Air 03/25/24 10:56 Laboratory Results Abnormal Lab Results 03/25/24 03/25/24 03/25/24 11:15 15:19 17:34 WBC 14.13 H RBC 5.14 Hgb 15.2 Hct 43.5 MCV 84.6 MCH 29.6 MCHC 34.9 RDW Std Deviation 39.9 RDW Coeff of Jeremias 12.9 Plt Count 279 MPV 10.9 Immature Gran % (Auto) 1.6 Neut % (Auto) 68.7 Lymph % (Auto) 21.9 [place] % (Auto) 4.2 Eos % (Auto) 3.0 Baso % (Auto) 0.6 Neut # (Auto) 9.71 H Lymph # (Auto) 3.09 [place] # (Auto) 0.59 Eos # (Auto) 0.43 Baso # (Auto) 0.09 Immature Gran # (Auto) 0.22 H PT 11.0 INR 1.0 APTT 28 PTT Ratio 1.0 D-Dimer 570 H* Sodium 139 Potassium 3.4 L Chloride 102 Carbon Dioxide 24 Anion Gap 13 H BUN 11 Creatinine 1.04 Est Cr Clr Drug Dosing 65.8 eGFR 63.47 BUN/Creatinine Ratio 10.6 Glucose 250 H POC Glucose 149 H Calcium 9.9 Ionized Calcium 1.17 Magnesium 1.1 L 1.9 Troponin I High Sens 3.1 2.6 Lipase 17 Procalcitonin < 0.02
[2024-03-25 19:50] LABS: Magnesium 1.7 mg/dl (1.7-2.4)
[2024-03-25 19:58] LABS: Troponin I High Sensitivity 3.5 pg/ml (0-14)
[2024-03-25] MEDS: ACETAMINOPHEN 325 MG TAB PO PRN (20:46)
[2024-03-25] MEDS: CALCITRIOL 0.25 MCG CAPSULE PO SCH (20:47)
[2024-03-25] MEDS: MAGNESIUM OXIDE 400 MG TAB PO SCH (20:48)
[2024-03-25] MEDS: SIMVASTATIN 20 MG TAB PO SCH (20:48)
[2024-03-25] MEDS: lisinopril 2.5 MG TAB PO SCH (20:48)
[2024-03-25] MEDS: CALCIUM CARBONATE 500 MG CHEWABLE TAB PO SCH (20:48)
[2024-03-25] MEDS ORDERED: KETOROLAC TROMETHAMINE 15 MG/ML VIAL IV PRN (21:00)
[2024-03-26] MEDS: LEVOTHYROXINE SODIUM 112 MCG TABLET PO SCH (06:09)
[2024-03-26 07:54] LABS: Basophils # (auto) 0.08 K/uL (0.00-0.20); Basophils % (auto) 0.5 %; Hematocrit (blood only) 39.3 % (37.0-47.0); Hemoglobin 13.7 g/dl (12.0-16.0); Immature Granulocytes # (auto) 0.04 K/uL (0.01-0.20); Immature Granulocytes % (auto) 0.3 %; Lymphocytes # (auto) 3.37 K/uL (1.20-3.40); Lymphocytes % (auto) 22.5 %; Mean Corpuscular Hemoglobin 30.1 pg (25.0-34.0); Mean Corpuscular Hgb Conc 34.9 g/dL (32.0-36.0); Mean Corpuscular Volume 86.4 fL (80.0-100.0); Mean Platelet Volume 10.8 fL (9.4-12.4); Monocytes # (auto) 0.51 K/uL (0.11-0.59); Monocytes % (auto) 3.4 %; Neutrophils % (auto) 69.3 %; Platelet Count 256 K/uL (130-400); RDW Standard Deviation 40.7 fL (36.4-46.3); Red Blood Count 4.55 M/uL (4.20-5.40)
[2024-03-26] MEDS: RIZATRIPTAN BENZOATE MLT 10 MG TAB PO PRN (08:19)
[2024-03-26] MEDS: amLODIPine BESYLATE 5 MG TAB PO ONE (08:42)
--- NOTE | 2024-03-26 08:42 | Hospitalist Progress Note ---
Date of Service March 26, 2024 Assessment & Plan (1) S/P parathyroidectomy: (2) Complaint of paresthesia: (3) Electrolyte disturbance: (4) Headache: Plan Regina Purcell is a 53y/o F with PMHx significant for DM type II, diabetic peripheral neuropathy, primary hyperparathyroidism s/p parathyroidectomy [performed on 03/21/2024 @ [facility]], HTN, hypothyroidism, tobacco use disorder and anxiety who presented to the ED on 03/25/2024 secondary to chest pain/shortness of breath and numbness/tingling of her face plus upper extremities. Primary Hyperparathyroidism S/P Parathyroidectomy, Paresthesias & Electrolyte Abnormalities: Patient recently underwent parathyroidectomy on 03/21/[address] Sarah Dickerson [Otolaryngology] at [facility]. Patient with poor oral intake for several days prior to arrival due to nausea. She has been experiencing numbness/tingling of her face and bilateral upper extremities postoperatively. Outpatient calcium levels were WNL at 9.6 on 03/22/2024 and 9.9 on 03/24/2024. She was subsequently referred to the ED for evaluation by Dr. Dickerson to assess for dehydration and electrolyte imbalances. K+ 3.4, Mag 1.1 on presentation. She was started on IVF w/ 1L NSS + 20mEq KCl x 2 bags. Also received oral K+ supplementation. IV Mag repleted in the ED x 2 bags. She was also started on po magnesium oxide 400mg BID. Her calcium and ionized calcium were WNL on admission. D-Dimer was elevated at 570 in the ED; chest CTA revealed edema subcutaneous emphysema within the midline lower neck, no discrete drainable postoperative fluid collections identified. Chest CTA results were reviewed with [facility] on-call ENT, Dr. Tapan Clifton - felt the results reflected normal postoperative findings. Patient has previously seen [facility] [Nicola Santiago PA-C & Dr. Arthur Chaparro] on 02/26/2024. Thursday, 03/26 K+ improved to 4.3, Mag still low at 1.5 - will replete with IV Mag x 1 bag. IVF stopped 2/2 improved K+ level. Calcium 8.5, ionized calcium 1.06 this morning. Case was discussed with [facility] --> calcitriol increased to 0.5mcg TID & calcium carbonate increased to 1000mg TID. Vitamin D 21.3 today; vitamin D supplementation started. Continue to monitor and manage electrolytes PRN. She already has a follow-up appointment scheduled with [facility] on Thursday (03/28/2024). Constipation: Patient with c/o constipation this morning. She was agreeable with starting a scheduled bowel regimen; will continue to monitor. Hypoxia - RESOLVED & Atelectasis: Was noted to be mildly hypoxic in the ED, likely 2/2 IV Ativan administration for increased anxiety. Now off supplemental O2, saturation well on RA. SOB improved. Procalcitonin was negative, patient with minimal cough. CXR on admission revealed linear bibasilar densities favoring atelectasis. Doubt any pneumonia development at this time. Continue to encourage incentive spirometry use. Chest Pain - RESOLVED: Feel likely related to above/anxiety, low suspicion for ACS at this time. EKG on presentation reviewed and without any evidence of overt acute ischemia. Repeat troponins have been negative and patient reports her chest pain has resolved. Echo performed today -> results personally reviewed and unremarkable; patient updated on echo results. Tobacco Use Disorder: Smokes 1/2 PPD, continue to encourage cessation. Nicotine patch on board. Anxiety: Patient suffering from worsening anxiety from recent medical events. Continue PRN po Ativan, PRN po hydroxyzine added on today. Continue to monitor. Headache, History of Migraines: Headache and BUE/facial paraesthesias have not fully resolved. Head CT performed today and was unremarkable. Nausea also persists. Continue PRN IV Toradol/Maxalt. PRN IV Phenergan added on today as IV Zofran has been ineffective. Neurology consult reviewed -> Suspected her hypomagnesemia was the cause of her headache. Recent outpatient brain MRI on 03/03/24 was unremarkable. Continue to manage her electrolytes PRN as per above. DM Type II: Hold home agents, Hgb A1c was 7.4% in January 2024. BSG has been elevated/variable, continue BSG checks ACHS. Glycemic pharmacy consulted for assistance with insulin dosing/management --> Now on basal/bolus regimen for tighter BSG control. Continue to monitor BSG. HTN: Patient hypertensive in ED which improved s/p IV Ativan. She still continues to be mildly hypertensive. Continue home lisinopril dose for now, however the dose may need to be adjusted. Continue to monitor BP closely. Other Chronic Medical Conditions: Hypothyroidism --> Can continue home levothyroxine, TSH WNL this admission. DVT Prophylaxis: SCDs/TEDs for now Code Status: FULL CODE PCP: Ada Waterman PA-C Disposition: Currently admitted in PCU/Telemetry, anticipate discharge home tomorrow with close endocrinology (as per above) and PCP follow-up appointments. Will need work release form. Patient plans on arranging short-term disability paperwork with her PCP. Patient seen in collaboration with Dr. Farah. Please see addendum. I spent a total of 65 minutes coordinating, documenting, and providing care for this patient excluding time spent in the performance of separately billed services. This included personally reviewing all current laboratories and imaging studies, medical reconciliation, outpatient chart review and discussion with specialists. This chart was completed in part utilizing Speech Voice Recognition Software. Grammatical errors, random word insertions, pronoun errors, and incomplete sentences are an occasional consequence of this system due to software limitations, ambient noise, and hardware issues. Any formal questions or concerns about the content, text, or information contained within the body of this dictation should be directly addressed to the provider for clarification. Admission and Anticipated Discharge Date Admission Date: March 25, 2024 Supervising Physician Co-Signing Physician Notes Patient seen and examined I discussed with patient and family (, daughter, son-in-law, sister) who were at bedside this AM Discussed findings, plan. I also educated them on patient's symptoms related to her recent parathyroidectomy and changes in the body associated with that. I called and reviewed patient with [employer] Dr Du who recommends increasing calcitriol to 0.5mcg TID, calcium carbonate to 1000mg TID and start Vit D 20193N weekly. He stated he has appt with patient in office on Thu and they will take mgt from there. I went back afterwards and updated patient about the changes and [employer]'s recs and need for follow up with him on Thursday. I reviewed the rest of her workup (CTs, TTE) with her which were unremarkable. Patient seen and examined Agree with plans as detailed by Irma Wilkes PA-C I spent a total of 65 minutes coordinating, documenting and providing care for this patient excluding time spent in performance of separately billed services Subjective Patient seen and examined this morning. She was still complaining of a headache. She was also endorsing some ongoing nausea still. No episodes of vomiting today but she has had very poor oral intake due to the nausea. She denied any chest pain or shortness of breath. Her parathyroidectomy surgical site bandaging was dry and intact; she denied any drainage from this area. No trouble swallowing or difficulty breathing. She was on her way down to get a head CT this morning when I saw her due to the persistent headache she has been having therefore I had not seen any family at that time. I went back and spoke with the patient and her family again this afternoon to go over her head CT and echocardiogram results. Her sister, daughter and niece were present at bedside. Patient was still complaining of ongoing nausea; the IV Zofran does not seem to be working as effectively therefore she was agreeable to trial some PRN IV Phenergan. Still no episodes of vomiting however she continues with poor oral intake due to the persistent nausea. She is very tearful and anxious about her anticipated discharge tomorrow as she is worried her symptoms will not improve. She was agreeable to trying as needed oral hydroxyzine for anxiety. She did have a 0.5mg dose of oral Ativan this morning with some relief in her anxiety at that time, however it has gotten worse again as the medication seems to be wearing off. We discussed her calcium and vitamin D levels today. Dr. Farah had discussed her case with [facility], Dr. Chaparro (she recently saw [facility] on 02/26/2024) --> Recommendation was to increase her po calcitriol from 0.25mcg BID to 0.5mcg TID and her po calcium carbonate from 500mg TID to 1000mg TID. She was also started on po vitamin D supplementation. She was given a dose of IV calcium gluconate as well. Patient and her family were agreeable with these medication changes. Patient is anxious to see how her symptoms change moving forward as she has felt rather horrible since her parathyroidectomy (persistent nausea, fatigue). Patient and her family are requesting her to be discharged home with as needed antiemetics and anxiolytics. Patient already has a follow-up appointment with [facility] on Thursday (03/28) with Nicola Santiago PA-C. Review of Systems Review of Systems: At least ten systems reviewed and negative, except as noted in the subjective section. Physical Exam Physical Exam: General: Ill-appearing F, NAD, sitting up wheelchair for transportation to CT, anxious, appears lethargic/exhausted. A+Ox3, conversing appropriately. HEENT: Normocephalic/conjunctivae normal. Soft tissue neck edema, mild erythema, + parathyroidectomy incision, trachea midline. Oropharynx somewhat dry. Respiratory: Normal respiratory effort, lungs clear to auscultation bilaterally, no wheeze/rales/rhonchi. No accessory muscle use or tachypnea. Cardiovascular: Regular rate, rhythm, normal peripheral pulses, no BLE edema. Vessels: No evidence of JVD. Abdomen/GI: Normal bowel sounds, soft, nontender to palpation in all quadrants. Extremities/Musculoskeletal: No cyanosis or clubbing, tremulous BUE movements, able to actively move all extremities, extremity motor strength intact. Neurologic: No overt focal deficits, CN's II-XI not formally tested but appear grossly intact bilaterally. Skin: No rashes, normal color, warm/dry. Some mild erythema around parathyroidectomy incision but no drainage, overlying bandaging is dry and intact. Results & Data Results & Data Vital Signs (Past 12 Hours) Vital Signs Temp Pulse Pulse Resp BP Pulse Ox O2 Del Method 03/26/24 07:55 36.8 C 78 19 168/98 H 94 Room Air 03/26/24 07:31 Room Air 03/26/24 03:09 36.7 C 77 16 156/92 H 91 Room Air 03/25/24 23:07 74 03/25/24 22:57 37.0 C 58 L 19 146/75 H 93 Room Air Laboratory Results Short CBC 03/26/24 Range/Units 07:18 WBC 15.00 H (4.8-10.8) K/ul Hgb 13.7 (12.0-16.0) g/dl Hct 39.3 (37.0-47.0) % Plt Count 256 (130-400) K/uL [facility] 03/26/24 07:18 Sodium 144 Potassium 4.3 D Chloride 110 H Carbon Dioxide 23 BUN 12 Creatinine 1.08 Glucose 177 H Calcium 8.5 L Liver Function 03/26/24 Range/Units 07:18 Total Bilirubin 0.7 (0.2-1.0) mg/dl AST 13 (13-39) U/L ALT 40 (7-52) U/L Alkaline Phosphatase 77 (34-104) U/L Albumin 3.8 (3.4-5.0) gm/dl Diagnostic Findings Head CT 03/26/24 10:19 CT OF THE HEAD WITHOUT CONTRAST CLINICAL HISTORY: Persistent headache. COMPARISON STUDY: MRI of the brain August 25, 2006. Head CT and CTA of the head January 26, 2024. CT DOSE: 580.53 mGy.cm TECHNIQUE: Helical axial images of the head were obtained without IV contrast. Automated exposure control was utilized for the study. A dose lowering technique was utilized adhering to the principles of ALARA. FINDINGS: No acute intracranial hemorrhage, midline shift or mass effect is present. The ventricular system is unremarkable. The basal cisterns are patent. No extra-axial collections are present. There are no findings to suggest acute dural sinus thrombosis or acute territorial infarct. No significant calvarial abnormalities are present. Visualized portions of the sinuses and mastoid air cells are clear. IMPRESSION: No acute intracranial findings. ACT 112: Negative or not required by law. Electronically signed by: Armando Santos M.D. 03/26/2024 11:14 AM (4) Headache Headache chronicity pattern: acute headache Headache type: unspecified Intractability: intractable Qualified Code(s): R51.9 - Headache, unspecified
[2024-03-26 08:44] LABS: Albumin Globulin Ratio 1.3 (0.9-2); Albumin Level 3.8 gm/dl (3.4-5.0); BUN Creatinine Ratio 11.1 (10-20); Bilirubin,Total 0.7 mg/dl (0.2-1.0); Calcium 8.5 mg/dl (8.6-10.3); Magnesium 1.5 mg/dl (1.7-2.4); Phosphorus 4.5 mg/dl (2.5-4.9); Potassium 4.3 mmol/L (3.5-5.1); Thyroid Stimulating Hormone 1.889 uIu/ml (0.300-4.500); Total Protein 6.8 gm/dl (6.0-8.3); Troponin I High Sensitivity 3.8 pg/ml (0-14)
[2024-03-26] MEDS: POLYETHYLENE (MIRALAX) 17 GM PACK PO PRN (09:49)
--- OUTSIDE RECORDS SUMMARY | 2024-03-26 10:15 | External Medical Summary | Summary of Care ---
Author Name Unknown Organization [facility] Address [address] [facility] [address] Phone [phone] Care Team Providers Care Hollow Tile Partition Erector Name Role Phone Ada Waterman PA-C Primary Care Provider [phone] Reason for Visit * Reason Onset Date Comments Medication Question 03/09/2024 Encounter Details Date Type Department Care Team (Late st Contact Info) Description 03/09/2024 Telephone [facility] [address] [place] [address] Ada Waterman PA-C [address] [place] [address] Medication Question Allergies Active Allergy Reactions Criticality Noted Date Comments Canagliflozin Other (Please comment) Low 10/08/2022 Uti, yeast Metformin Diarrhea Low 10/08/2022 Constant diarrhea Oxycodone Nausea/vomiting 03/21/2024 documented as of this encounter (statuses as of 03/24/2024) Medications OneTouch Ultra In Vitro Strip use 1 TEST STRIP to TEST three times a day before meals 023 Active OneTouch Delica Plus [id number] use three times a day before meals 023 Active glipiZIDE 5 MG Oral Tablet (Glucotrol)Indica tions:Type 2 diabetes mellitus with hemoglobin A1c goal of less than 7.0% ([facility]) TAKE 1 TABLET BY MOUTH TWICE DAILY 30 MINUTES BEFORE MEALS 180 Tablet 1 Active Promethazine HCl 25 MG Oral Tablet (Phenergan) Take 1 Tablet by mouth every 6 hours as needed for Other (dizziness). or vomiting 12 Tablet Active Additional Information Patient not taking.Reported on 03/21/2024 Lisinopril 2.5 MG Oral Tablet (Prinivil) TAKE 1 TABLET BY MOUTH IN THE MORNING 90 Tablet 3 Active Levothyroxine Sodium 100 MCG Oral Tablet (Levoxyl) TAKE 1 TABLET BY MOUTH ONCE DAILY ON AN EMPTY STOMACH 90 Tablet 3 Active Additional Information Patient taking differently: 112 mcg Oral [id number], TAKE 1 TABLET BY MOUTH ONCE DAILY ON AN EMPTY STOMACH, Reported on 03/21/2024 Simvastatin 20 MG Oral Tablet (Zocor) Take 1 Tablet by mouth at bedtime. 90 Tablet 1 Active Ketorolac Tromethamine 10 MG Oral Tablet (Toradol)Indicati ons:Intractable paroxysmal hemicrania, unspecified chronicity pattern Take 1 Tablet by mouth 4 times a day as needed for Pain, Severe. Do not take for longer than 5 days 20 Tablet Active Scopolamine 1 MG/3DAYS Transdermal Patch 72 Hour (Transderm-Scop)I ndications:Dizzin ess Place patch on skin , replace daily for extreme dizziness and nausea 30 Patch 1 Active Rizatriptan Benzoate 10 MG Oral Tablet Disintegrating (Maxalt-RECRUITER COORDINATOR)Indic ations:Intractabl e paroxysmal hemicrania, unspecified chronicity pattern Take 1 Tablet by mouth as needed for Migraine. at onset of headache, may repeat every 2 hours. No more than 3 pills in 24 hours 20 Tablet 3 Active ALPRAZolam 0.25 MG Oral Tablet (Xanax)Indication s:Dizziness,Intra ctable paroxysmal hemicrania, unspecified chronicity pattern One tab 1 hour prior to mri, repeat 15 min prior, at start and during if needed 5 Tablet Active Additional Information Patient not taking.Reported on 03/21/2024 Trimethobenzamide HCl 300 MG Oral CapsuleIndication s:Nausea and vomiting, unspecified vomiting type Take 1 Capsule by mouth in the morning and 1 Capsule at noon and 1 Capsule in the evening and 1 Capsule before bedtime. 40 Capsule 1 Active Additional Information Patient not taking.Reported on 03/21/2024 Meclizine HCl 25 MG Oral Tablet (Antivert)Indicat ions:Dizziness Take 0.5-1 Tablets by mouth 3 times a day as needed for Dizziness. 30 Tablet 1 Active Sulfamethoxazole- Trimethoprim 800-160 MG Oral Tablet (Bactrim DS)Indications:Re current UTI Take 1 Tablet by mouth in the morning and 1 Tablet before bedtime. Do all this for 7 days. Until gone. 14 Tablet 1 024 2023 Discontinued Meclizine HCl 25 MG Oral Tablet (Antivert)Indicat ions:Dizziness Take 0.5-1 Tablets by mouth 3 times a day as needed for Dizziness. 30 Tablet 1 024 2023 Discontinued(R sanjay) Hospital, Clinic, or Other Facility Administered Medication Ordered Dose Route Frequency Start Date End Date Status cefTRIAXone (Rocephin) (350 mg/mL) inj dilution 1,000 mgIndications:Acute cystitis without hematuria 1000 mg IM Q24H 03/09/2024 Active documented as of this encounter (statuses as of 03/24/2024) Active Problems Problem Noted Date Diagnosed Date Hyperparathyroidism, primary 02/22/2024 Type 2 diabetes mellitus wit h hemoglobin A1c goal of less than 7.0% 01/12/2023 Diabetic peripheral neuropathy 01/12/2023 Chest pain 02/05/2000 STRESS REACT NEC 02/05/2000 Tobacco use disorder 02/05/2000 Abnormal weight gain 02/05/2000 documented as of this encounter (statuses as of 03/24/2024) Resolved Problems Problem Noted Date Diagnosed Date Resolved Date ADVANCE DIRECTIVE INFORMATION 09/23/2005 03/07/2024 Overview (09/23/2005): Information offered-patient declined documented as of this encounter (statuses as of 03/24/2024) Immunizations Name Administration Dates Next Due TDAP, Age 7 and older, IM (Adacel) 06/14/2020 documented as of this encounter Social History Tobacco Use Types Packs/Day Years Used Date Smoking Tobacco: Every Day Cigarettes 1 10 Smokeless Tobacco: Never Alcohol Use Standard Drinks/Week Comments No 0 (1 standard drink = 0.6 oz pur e alcohol) PHQ-2 Answer Date Recorded PHQ Adult Total Score 0 01/14/2024 Hunger Vital Sign Answer Date Recorded Within the past 12 months, y ou worried that your food would run out before you got the money to buy more. Never true 01/05/20 24 Within the past 12 months, t he food you bought just didn't last and you didn't have money to get more. Never true 01/05/2024 Childcare Answer Date Recorded Do you feel overwhelmed with taking care of a child, family member or friend? No 01/05/2024 Does your family need help f inding childcare? (Household - for ages 0-17 years) Not on file 01/05/2024 Clothing Answer Date Recorded Have you been unable to get clothing when it was really needed? No 01/05/2024 Is your family able to get c lothes or diapers when needed? (Household - for ages 0-17 years) Not on file 01/05/2024 Personal Safety Answer Date Recorded Do you feel unsafe or have concerns for your saf ety? No 03/21/2024 Do you have concerns for you r family's safety? (Household - for ages 0-17 years) Not on file 03/21/2024 Utilities Answer Date Recorded Do you have trouble paying y our heating, water, or electric bill? No 03/21/2024 Is your family able to pay t he heat, water, or electric bill? (Household - for ages 0-17 years) Not on file 03/21/2024 Does your family have access to good internet? (Household - for ages 0-17 years) Not on file 03/21/2024 Employment Status Answer Date Recorded Are you unemployed or without regular income? No 01/05/2024 Does the household have a re gular source of income? (Household - for ages 0-17 years) Not on file 01/05/2024 Social Connections Answer Date Recorded How often do you feel lonely or isolated from th ose around you? Never 01/05/2024 Financial Resource Strain Answer Date R ecorded Do you have any trouble payi ng for your medications, or do you think you might in the future? No 01/05/2024 Does your family have troubl e paying for medicine? (Household - for ages 0-17 years) Not on file 01/05/2024 Transportation Needs Answer Date Record ed Do you have trouble getting a ride to medical visits or work? (Adult - for ages 18 years and over) Not on file 03/21/2024 Does your family have a hard time getting a ride to doctors visits? (Household - for ages 0-17 years) Not on file 03/21/2024 Has lack of transportation k ept you from medical appointments, meetings, work, or from getting things needed for daily living? Check all that apply. No 03/21/2024 Do you (or your family) have trouble finding or paying for a ride (transportation)? (Household - for ages 0-17 years) Not on file 03/21/2024 Housing Stability Answer Date Recorded Do you currently live in a s helter or have no steady place to sleep at night? No 03/21/2024 Do you think you are at risk of becoming homeless? (Adult - for ages 18 years and over) Not on file 03/21/2024 Does your family worry about paying for your home or becoming homeless? (Household - for ages 0-17 years) Not on file 1 05/21/2023 Are you homeless or worried that you might be in the future? No 03/21/2024 Are you (or your family) lalo eless or worried that you might be in the future? (Household - for ages 0-17 years) Not on file Food Insecurity Answer Date Recorded Do you need food for this week? No 03/21/2024 Are you able to get enough f ood for your family? (Household - for ages 0-17 years) Not on file 03/21/2024 Does your family need food t his week? (Household - for ages 0-17 years) Not on file 03/21/2024 Do you always have enough fo od for your family? 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 She doesn't need the trimethobenzamide. She is asking if she can have meclizine to wean herself off the scopolamine patch? She looked it up and it said you can use the meclizine for this. Please advise. Sister got on the phone and asked if the message can be sent to Dr. Nye. * Telephone Encounter - Keiry Alicea LPN - 03/24/2024 2:12 PM EST Left message for pt to call back. Please see if pt has a different pharmacy we can try * Telephone Encounter - Ada Waterman PA-C - 03/15/2024 4:46 PM EST Diff pharm Ada Waterman PA-C 03/15/2024 4:46 PM * Telephone Encounter - Riley Aaron LPN - 03/09/2024 5:00 PM EST Domenic calling from [facility] pharmacy stating Trimethobenzamide 300 mg is not available at the pharmacy and can be ordered. He advised sending script to different pharmacy and calling them before sending the script to make sure they have the medication or can get it. Please advice- different pharmacy or different med documented in this encounter Plan of Treatment Upcoming Encounters Date Type Department Care Team (Late st Contact Info) Description 03/30/2024 10:00 AM EST Office Visit Otolaryngology [facility] [address] [place] [address] Spencer Dean DO [address] [place] [address] 07/04/2024 12:00 PM EST Office Visit [facility] [address] [place] [phone] Ada Waterman PA-C [address] [place] [address] Health Maintenance Due Date Last Done Comments DISCUSS TOBACCO CESSATION (REFER TO SMARTSET #1481) 1968 Cologuard 2013 Colonoscopy 2013 Fecal Occult Blood Test 2013 Sigmoidoscopy 2013 Influenza Vaccine (FLU shot) (#1) 2024 HbA1c 07/19/2024 01/20/2024, 01/02, 07/31/2023, Additional history exists Albumin/Creatinine Ratio 07/30/2024 024, 04/07/2023, 10/09/2022 Diabetic Eye Exam 01/04/2025 Postponed from 1986 (Patient Declined After Education) Diabetic Foot Exam 01/04/2025 Postponed from 1986 (Patient Declined After Education) HIV Screening 01/04/2025 Postponed from 12/21/1983 (Patient Declined After Education) Hepatitis C Screening 01/04/2025 Postpo colin from 1986 (Patient Declined After Education) Mammogram 01/04/2025 03/26/2004 Postponed from 2008 (Patient Declined After Education) Colorectal Cancer Screening 01/13/2025 Postponed from 2013 (Patient Declined After Education) Depression Screening 01/13/2025 01/14/2024 Pneumococcal Vaccine: Pediatrics (0 to 5 Years) and At-Risk Patients (6 to 64 Years) (1 of 2 - PCV) 01/13/2025 Postponed from 1974 (Patient Declined After Education) Zoster Vaccines (1 of 2) 01/13/2025 Pos tponed from 2018 (Patient Declined After Education) TSH 01/19/2025 01/20/2024, 01/02, 10/09/2022, Additional history exists GFR 03/08/2025 03/08/2024, 1005/2023, 01/20/2024, Additional history exists Lipid Panel 03/08/2029 03/08/2024, 01/02, 10/09/2022 DTap/Tdap Vaccines (2 - Td or Tdap) 06/14/2030 06/14/2020, 10/03/1999 COVID-19 Vaccine Discontinued 09/04/2020, 08/14/2020 HPV (Gardasil) Vaccine Aged Out No lo nger eligible based on patient's age to complete this topic Hepatitis B Vaccine Discontinued MENINGOCOCCAL (MENACTRA/MENVEO) Aged Out No longer eligible based on patient's age to complete this topic documented as of this encounter Medical Devices Not on filedocumented as of this encounter Visit Diagnoses Diagnosis Dizziness Dizziness and giddiness documented in this encounter Advance Directives * Full Code (Latest Code Status on File) Date Activated Date Inactivated Comments 03/21/2024 11:38 AM 03/22/2024 2:20 PM This orde r reflects the patients wishes and were consensually agreed upon. Question Answer Comments Discussion of Advance Direct carito occurred with: Not Discussed due to patient's condition Care Teams Hollow Tile Partition Erector Relationship Specialty Start Date End Date Ada Waterman PA-C [address] [facility] [place] [id number] PCP - General Physician Patrol Sergeant [employer] 09/02/22 documented as of this encounter
--- OUTSIDE RECORDS SUMMARY | 2024-03-26 10:15 | External Medical Summary | Summary of Care ---
Author Name Unknown Organization [facility] Address [address] [facility] [place] [address] Phone [phone] Care Team Providers Care Cement And Concrete Plant Worker Name Role Phone Ada Waterman PA-C Primary Care Provider [phone] Reason for Visit * Reason Onset Date Comments Advice 03/24/2024 Encounter Details Date Type Department Care Team (Late st Contact Info) Description 03/24/2024 Telephone Otolaryngology [facility] [address] [place] [address] Spencer Dean DO [address] [place] [address] Advice Allergies Active Allergy Reactions Criticality Noted Date Comments Canagliflozin Other (Please comment) Low 10/08/2022 Uti, yeast Metformin Diarrhea Low 10/08/2022 Constant diarrhea Oxycodone Nausea/vomiting 03/21/2024 documented as of this encounter (statuses as of 03/24/2024) Medications OneTouch Ultra In Vitro Strip use 1 TEST STRIP to TEST three times a day before meals 09/03/19 23 Active OneTouch Delica Plus [id number] use three times a day before meals 09/18/19 23 Active glipiZIDE 5 MG Oral Tablet (Glucotrol)Indicat ions:Type 2 diabetes mellitus with hemoglobin A1c goal of less than 7.0% ([facility]) TAKE 1 TABLET BY MOUTH TWICE DAILY 30 MINUTES BEFORE MEALS 180 Tablet 1 12/23/19 24 Active Meclizine HCl 25 MG Oral Tablet (Antivert)Indicati ons:Dizziness Take 0.5-1 Tablets by mouth 3 times a day as needed for Dizziness. 30 Tablet 1 01/14/20 24 Active Promethazine HCl 25 MG Oral Tablet (Phenergan) Take 1 Tablet by mouth every 6 hours as needed for Other (dizziness). or vomiting 12 Tablet 02/11/20 24 Active Additional Information Patient not taking.Reported on 03/21/2024 Lisinopril 2.5 MG Oral Tablet (Prinivil) TAKE 1 TABLET BY MOUTH IN THE MORNING 90 Tablet 3 02/15/20 24 Active Levothyroxine Sodium 100 MCG Oral Tablet (Levoxyl) TAKE 1 TABLET BY MOUTH ONCE DAILY ON AN EMPTY STOMACH 90 Tablet 3 02/15/20 24 Active Additional Information Patient taking differently: 112 mcg Oral [id number], TAKE 1 TABLET BY MOUTH ONCE DAILY ON AN EMPTY STOMACH, Reported on 03/21/2024 Simvastatin 20 MG Oral Tablet (Zocor) Take 1 Tablet by mouth at bedtime. 90 Tablet 1 02/15/20 24 Active Ketorolac Tromethamine 10 MG Oral Tablet (Toradol)Indicatio ns:Intractable paroxysmal hemicrania, unspecified chronicity pattern Take 1 Tablet by mouth 4 times a day as needed for Pain, Severe. Do not take for longer than 5 days 20 Tablet 02/24/20 24 Active Scopolamine 1 MG/3DAYS Transdermal Patch 72 Hour (Transderm-Scop)In dications:Dizzines s Place patch on skin , replace daily for extreme dizziness and nausea 30 Patch 1 03/02/20 24 Active Rizatriptan Benzoate 10 MG Oral Tablet Disintegrating (Maxalt-ACCOUNT MAINTENANCE REPRESENTATIVE)Indica tions:Intractable paroxysmal hemicrania, unspecified chronicity pattern Take 1 Tablet by mouth as needed for Migraine. at onset of headache, may repeat every 2 hours. No more than 3 pills in 24 hours 20 Tablet 3 03/02/20 24 Active ALPRAZolam 0.25 MG Oral Tablet (Xanax)Indications :Dizziness,Intract able paroxysmal hemicrania, unspecified chronicity pattern One tab 1 hour prior to mri, repeat 15 min prior, at start and during if needed 5 Tablet 10/30/20 24 Active Additional Information Patient not taking.Reported on 03/21/2024 Trimethobenzamide HCl 300 MG Oral CapsuleIndications :Nausea and vomiting, unspecified vomiting type Take 1 Capsule by mouth in the morning and 1 Capsule at noon and 1 Capsule in the evening and 1 Capsule before bedtime. 40 Capsule 1 03/09/20 Active Additional Information Patient not taking.Reported on 03/21/2024 Furosemide 20 MG Oral Tablet (Lasix)Indications :Fluid retention One tab by mouth in the morning for fluid retention. Take one dose and hold. 3 Tablet 03/15/20 Active Calcium Carbonate Antacid 750 MG Oral Tablet Chewable (Tums E-X) Chew & swallow 2 Tablets by mouth 3 times per day (morning, noon, before bedtime). 90 Tablet 3 03/22/2024 10:14 AM EST 03/21/20 Active Calcitriol 0.25 MCG Oral Capsule (Rocaltrol) Take 1 Capsule by mouth twice per day (morning, before bedtime). 30 Capsule 03/23/2024 2:28 PM EST 03/21/20 Active traMADol HCl 50 MG Oral Tablet (Ultram) Take 1 Tablet by mouth every 6 hours as needed for severe pain. 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 Answer Date of Assessment Author No 03/21/2024 2:45 PM Aaron Benavides RN * Are you blind or do you have serious difficulty seeing, even when wearing glasses? Answer Date of Assessment Author No 03/21/2024 2:45 PM Aaron Benavides RN * Do you have serious difficulty walking or climbing stairs? (5 years old or older) Answer Date of Assessment Author No 03/21/2024 2:45 PM Aaron Benavides RN * Do you have difficulty dressing or bathing? (5 years old or older) Answer Date of Assessment Author No 03/21/2024 2:45 PM Aaron Bneavides RN * Because of a physical, mental, or emotional condition, do you have difficulty doing errands alone such as visiting a doctors office or shopping? (15 years old or older) Answer Date of Assessment Author No 03/21/2024 2:45 PM Aaron Benavides RN documented as of this encounter Mental Status * Because of a physical, mental, or emotional condition, do you have serious difficulty concentrating, remembering, or making decisions? (5 years old or older) Answer Entry Date Author No 03/21/2024 2:45 PM Aaron Benavides RN documented in this encounter Miscellaneous Notes * Telephone Encounter - Marla Shah RN - 03/24/2024 1:38 PM EST Return call to patient to notify of normal Ca level. Instructed patient to not take any additional doses of TUMS today. Patient is still feeling about the same, but stated she would call back if symptoms changed or worsened. Patient has a follow-up with Dr. Dean next Thursday. Marla Shah PhD RN certified emergency vehicle technician Otolaryngology * Telephone Encounter - Spencer Dean DO - 03/24/2024 1:17 PM EST Please let patient know her calcium is normal. Thanks Spencer Dean DO, [facility] Central Station Operator, Department of Otolaryngology-Head and Neck Surgery [place], [place] 03/24/2024 1:17 PM * Telephone Encounter - Marla Shah RN - 03/24/2024 10:55 AM EST TT sent to Dr. Dickerson to discuss symptoms. Dr. Dickerson recommending additional TUMs and labs. Calledpatient's sister at the number below with no answer. Called patient's cell phone number; no answer,left VM to return my call. Return call from patient. Patient needs stat labs completed. Instructed patient to go to [facility] for labs and to stay in the area until labs have been resulted. Patientverbalized understanding. Will return call to patient with results and next steps. Marla Shah PhD RN certified emergency vehicle technician Otolaryngology * Telephone Encounter - Diamond Marino LPN - 03/24/2024 10:31 AM EST Patient sister called. States patient had tingling in fingers and hands. Followed the protocol advised with Tums. Took 6 Tums total as per post op directions and timelines. She is still has hand and finger tingling. Sister number is [phone] documented in this encounter Plan of Treatment Upcoming Encounters Date Type Department Care Team (Late st Contact Info) Description 03/30/2024 10:00 AM EST Office Visit Otolaryngology [facility] [address] [place] [address] Spencer Dean DO [address] [place] [address] 07/04/2024 12:00 PM EST Office Visit [facility] [address] [place] [phone] Ada Waterman PA-C [address] [place] [address] Pending Results Name Type Priority Associated Diagnoses Date /Time PTH Lab STAT S/P parathyroidectomy 03/24/2024 11:48 AM EST Scheduled Orders Name Type Priority Associated Diagnoses Orde r Schedule PTH Lab STAT S/P parathyroidectomy Expected: 03/24/2024, Expires: Health Maintenance Due Date Last Done Comments DISCUSS TOBACCO CESSATION (REFER TO SMARTSET #3291) 1968 Cologuard 2013 Colonoscopy 2013 Fecal Occult [...] 10/09/2022, Additional history exists GFR 03/08/2025 03/08/2024, 05/2023, 01/20/2024, Additional history exists Lipid Panel 03/08/2029 [...] Not on filedocumented as of this encounter Results * CALCIUM (03/24/2024 11:48 AM EST) CALCIUM 9.9 8.4 - 10.2 mg/dL 03/24/2024 1:06 PM EST [facility] Blood Venous blood specimen / Unknown Venipuncture / Unknown 03/24/2024 11:48 AM EST 03/24/2024 11:48 AM EST Spencer Dean DO LAB BLOOD ORDERABLES Final Result [facility] [facility] [place] [address] documented in this encounter Visit Diagnoses Diagnosis S/P parathyroidectomy- Primary Other postprocedural status documented in this encounter Advance Directives * Full Code (Latest Code Status on File) Date Activated Date Inactivated Comments 03/21/2024 11:38 AM 03/22/2024 2:20 PM This orde r reflects the patients wishes and were consensually agreed upon. Question Answer Comments Discussion of Advance Direct carito occurred with: Not Discussed due to patient's condition Care Teams Cement And Concrete Plant Worker Relationship Specialty Start Date End Date Ada Waterman PA-C [address] [facility] [place] [address] PCP - General Physician Preassembler And Inspector 09/02/22 documented as of this encounter
--- OUTSIDE RECORDS SUMMARY | 2024-03-26 10:15 | External Medical Summary ---
Author Name Unknown Address Unknown Organization K01:[facility] [place] - [address] [place] [id number] Laboratory Report Ordering Provider Test Date Status MIKO MCKEON 03/21/2024 08:57:00 Final Observation Date Value Abnormality Reference (Units ) Status Parathyrin.intact [Mass/volume] in Serum or Plasma 03/21/2024 08:57:00 259 Above high normal 10-65 (pg/mL) Final Performing Location [facility] [place] - [address] [place] [address]
--- OUTSIDE RECORDS SUMMARY | 2024-03-26 10:15 | External Medical Summary | Summary of Care ---
Author Name Unknown Organization [facility] Address [address] [facility] [place] [address] Phone [phone] Care Team Providers Care Magazine Worker Name Role Phone Ada Waterman PA-C Primary Care Provider [phone] Reason for Visit * Reason Comments Outpatient Testing Encounter Details Date Type Department Care Team (Late st Contact Info) Description 03/25/2024 9:40 AM EST Laboratory Laboratory, [facility] [address] [facility] [place] [id number] [facility] [address] [address] S/P parathyroidectomy Allergies Active Allergy Reactions Criticality Noted Date Comments Canagliflozin Other (Please comment) Low 10/08/2022 Uti, yeast Metformin Diarrhea Low 10/08/2022 Constant diarrhea Oxycodone Nausea/vomiting 03/21/2024 documented as of this encounter (statuses as of 03/25/2024) Medications OneTouch Ultra In Vitro Strip use 1 TEST STRIP to TEST three times a day before meals 09/03/19 23 Active OneTouch Delica Plus [id number] use three times a day before meals 09/18/19 23 Active glipiZIDE 5 MG Oral Tablet (Glucotrol)Indicat ions:Type 2 diabetes mellitus with hemoglobin A1c goal of less than 7.0% (HCC) TAKE 1 TABLET BY MOUTH TWICE DAILY 30 MINUTES BEFORE MEALS 180 Tablet 1 12/23/19 24 Active Promethazine HCl 25 MG Oral Tablet (Phenergan) Take 1 Tablet by mouth every 6 hours as needed for Other (dizziness). or vomiting 12 Tablet 02/11/20 Active Additional Information Patient not taking.Reported on 03/21/2024 Lisinopril 2.5 MG Oral Tablet (Prinivil) TAKE 1 TABLET BY MOUTH IN THE MORNING 90 Tablet 3 02/15/20 24 Active Levothyroxine Sodium 100 MCG Oral Tablet (Levoxyl) TAKE 1 TABLET BY MOUTH ONCE DAILY ON AN EMPTY STOMACH 90 Tablet 3 02/15/20 Active Additional Information Patient taking differently: 112 mcg Oral [id number], TAKE 1 TABLET BY MOUTH ONCE DAILY ON AN EMPTY STOMACH, Reported on 03/21/2024 Simvastatin 20 MG Oral Tablet (Zocor) Take 1 Tablet by mouth at bedtime. 90 Tablet 1 02/15/20 Active Ketorolac Tromethamine 10 MG Oral Tablet (Toradol)Indicatio ns:Intractable paroxysmal hemicrania, unspecified chronicity pattern Take 1 Tablet by mouth 4 times a day as needed for Pain, Severe. Do not take for longer than 5 days 20 Tablet 02/24/20 Active Scopolamine 1 MG/3DAYS Transdermal Patch 72 Hour (Transderm-Scop)In dications:Dizzines s Place patch on skin , replace daily for extreme dizziness and nausea 30 Patch 1 03/02/20 24 Active Rizatriptan Benzoate 10 MG Oral Tablet Disintegrating (Maxalt-MANUFACTURING MANAGEMENT ASSOCIATE)Indica tions:Intractable paroxysmal hemicrania, unspecified chronicity pattern Take [...] start and during if needed 5 Tablet 03/02/20 Active Additional Information Patient not taking.Reported on [...] Tablet 03/22/2024 10:14 AM EST 03/21/20 Active Meclizine HCl 25 MG Oral Tablet (Antivert)Indicati ons:Dizziness Take 0.5-1 Tablets by mouth 3 times a day as needed for Dizziness. 30 Tablet 1 03/24/20 Active Hospital, Clinic, or Other Facility Administered Medication Ordered Dose Route Frequency Start Date End Date Status cefTRIAXone (Rocephin) (350 mg/mL) inj dilution 1,000 mgIndications:Acute cystitis without hematuria 1000 mg IM Q24H 03/09/2024 Active documented as of this encounter (statuses as of 03/25/2024) Active Problems Problem Noted Date Diagnosed Date Hyperparathyroidism, primary 02/22/2024 Type 2 diabetes mellitus wit h hemoglobin A1c goal of less than 7.0% 01/12/2023 Diabetic peripheral neuropathy 01/12/2023 Chest pain 02/05/2000 STRESS REACT NEC 02/05/2000 Tobacco use disorder 02/05/2000 Abnormal weight gain 02/05/2000 documented as of this encounter (statuses as of 03/25/2024) Resolved Problems Problem Noted Date Diagnosed Date Resolved Date ADVANCE DIRECTIVE INFORMATION 09/23/2005 03/07/2024 Overview (09/23/2005): Information offered-patient declined documented as of this encounter (statuses as of 03/25/2024) Immunizations Name Administration Dates Next Due TDAP, [...] 2:57 PM EDT Sexual Orientation Straight 01/05/2024 2 :57 PM EDT 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 [address] [email or web address] [phone] dAa Waterman PA-C [address] [facility] [place] [id number] Pending Results Name Type Priority Associated Diagnoses Date /Time CALCIUM Lab STAT S/P parathyroidectomy 03/25/2024 9:28 AM EST PTH Lab STAT S/P parathyroidectomy 03/25/2024 9:28 AM EST Health Maintenance Due Date Last Done Comments DISCUSS TOBACCO CESSATION (REFER TO SMARTSET #[id number]) 1968 Cologuard 2013 Colonoscopy 2013 Fecal Occult [...] 10/09/2022, Additional history exists GFR 03/08/2025 03/08/2024, 10/0 05/2023, 01/20/2024, Additional history exists Lipid Panel [...] as of this encounter Visit Diagnoses Diagnosis S/P parathyroidectomy Other postprocedural status documented in this encounter Advance Directives * Full Code (Latest Code Status on File) Date Activated Date Inactivated Comments 03/21/2024 11:38 AM 03/22/2024 2:20 PM This orde r reflects the patients wishes and were consensually agreed upon. Question Answer Comments Discussion of Advance Direct carito occurred with: Not Discussed due to patient's condition Care Teams Magazine Worker Relationship Specialty Start Date End Date Ada Waterman PA-C [address] [facility] [place] [address] PCP - General Physician Help Desk Analyst 09/02/22 documented as of this encounter
--- OUTSIDE RECORDS SUMMARY | 2024-03-26 10:15 | External Medical Summary ---
Author Name Unknown Address Unknown Organization [id number]:[facility] [place] [address] [place] [address] Laboratory Report Ordering Provider Test Date Status MIKO MCKEON 03/21/2024 08:06:00 Final Observation Date Value Abnormality Reference (Units ) Status Parathyrin.intact [Mass/volume] in Serum or Plasma 03/21/2024 08:06:00 225 Above high normal 10-65 (pg/mL) Final Performing Location [facility] [place] [address] [place] [address]
--- OUTSIDE RECORDS SUMMARY | 2024-03-26 10:15 | External Medical Summary ---
Author Name Unknown Address Unknown Organization [id number]:[facility] [place] [address] [place] [address] Laboratory Report Ordering Provider Test Date Status MIKO MCKEON 03/21/2024 09:17:00 Final Observation Date Value Abnormality Reference (Units ) Status Parathyrin.intact [Mass/volume] in Serum or Plasma 03/21/2024 09:17:00 234 Above high normal 10-65 (pg/mL) Final Performing Location [facility] [place] [address] [place] [address]
--- OUTSIDE RECORDS SUMMARY | 2024-03-26 10:15 | External Medical Summary ---
Author Name Unknown Address Unknown Organization [id number]:LABORATORY [facility] - [address] [place] [address] Laboratory Report Ordering Provider Test Date Status RACHAEL JEFF 03/21/2024 11:25:00 Final Observation Date Value Abnormality Reference (Units ) Status Calcium 03/21/2024 11:25:00 10.1 8.4-10.2 ( mg/dL) Final Performing Location LABORATORY [facility] - [address] [place] [address]
--- OUTSIDE RECORDS SUMMARY | 2024-03-26 10:15 | External Medical Summary | Summary of Care ---
Author Name Unknown Organization [facility] Address [address] [place] [address] Phone [phone] Care Team Providers Care Academic Support Director Name Role Phone Ada Waterman PA-C Primary Care Provider [phone] Reason for Visit * Reason Onset Date Comments Advice 03/09/2024 Encounter Details Date Type Department Care Team (Late st Contact Info) Description 03/09/2024 [facility] [address] [facility] [place] [phone] Ada Waterman PA-C [address] [place] [address] Advice Allergies Active Allergy Reactions Criticality Noted Date Comments Canagliflozin 10/08/2022 Uti, yeast Metformin 10/08/2022 Constant diarrhea documented as of this encounter (statuses as of 03/09/2024) Medications Medication Sig Dispensed Refills Start Date End Date Status OneTouch Ultra In Vitro Strip use 1 TEST STRIP to TEST three times a day before meals 09/02/2022 Active OneTouch Delica Plus [id number] use three times a day before meals 09/17/2022 Active glipiZIDE 5 MG Oral Tablet (Glucotrol)Indication s:Type 2 diabetes mellitus with hemoglobin A1c goal of less than 7.0% (HCC) TAKE 1 TABLET BY MOUTH TWICE DAILY 30 MINUTES BEFORE MEALS 180 Tablet 1 12/23/2023 Active Meclizine HCl 25 MG Oral Tablet (Antivert)Indications :Dizziness Take 0.5-1 Tablets by mouth 3 times a day as needed for Dizziness. 30 Tablet 1 01/14/2024 Active Furosemide 20 MG Oral Tablet (Lasix)Indications:Fl uid retention One tab by mouth int eh morning for fluid retention. Take one dose and hold. 3 Tablet 01/29/2024 Active Promethazine HCl 25 MG Oral Tablet (Phenergan) Take 1 Tablet by mouth every 6 hours as needed for Other (dizziness). or vomiting 12 Tablet 02/11/2024 Active Lisinopril 2.5 MG Oral Tablet (Prinivil) TAKE 1 TABLET BY MOUTH IN THE MORNING 90 Tablet 3 02/15/2024 Active Levothyroxine Sodium 100 MCG Oral Tablet (Levoxyl) TAKE 1 TABLET BY MOUTH ONCE DAILY ON AN EMPTY STOMACH 90 Tablet 3 02/15/2024 Active Simvastatin 20 MG Oral Tablet (Zocor) Take 1 Tablet by mouth at bedtime. 90 Tablet 1 02/15/2024 Active Ketorolac Tromethamine 10 MG Oral Tablet (Toradol)Indications: Intractable paroxysmal hemicrania, unspecified chronicity pattern Take 1 Tablet by mouth 4 times a day as needed for Pain, Severe. Do not take for longer than 5 days 20 Tablet 02/24/2024 Active Scopolamine 1 MG/3DAYS Transdermal Patch 72 Hour (Transderm-Scop)Indic ations:Dizziness Place patch on skin , replace daily for extreme dizziness and nausea 30 Patch 1 03/02/2024 Active Rizatriptan Benzoate 10 MG Oral Tablet Disintegrating (Maxalt-COMBAT SYSTEMS OPERATOR)Indicatio ns:Intractable paroxysmal hemicrania, unspecified chronicity pattern Take 1 Tablet by mouth as needed for Migraine. at onset of headache, may repeat every 2 hours. No more than 3 pills in 24 hours 20 Tablet 3 03/02/2024 Active ALPRAZolam 0.25 MG Oral Tablet (Xanax)Indications:Di zziness,Intractable paroxysmal hemicrania, unspecified chronicity pattern One tab 1 hour prior to mri, repeat 15 min prior, at start and during if needed 5 Tablet 03/02/2024 Active Hospital, Clinic, or Other Facility Administered Medication Ordered Dose Route Frequency Start Date End Date Status keTORolac (Toradol) 60 MG/2ML IM inj 60 mgIndications:Intractable paroxysmal hemicrania, unspecified chronicity pattern 60 mg IM ONCE 03/09/2024 03/09/2024 Active cefTRIAXone (Rocephin) (350 mg/mL) inj dilution 1,000 mgIndications:Acute cystitis without hematuria 1000 mg IM Q24H 03/09/2024 Active Lidocaine 1 % (PF) inj 1 mLIndications:Acute cystitis without hematuria 1 mL IM ONCE 03/09/2024 Active documented as of this encounter (statuses as of 03/09/2024) Active Problems Problem Noted Date Diagnosed Date Hyperparathyroidism, primary 02/22/2024 Type 2 diabetes mellitus wit h hemoglobin A1c goal of less than 7.0% 01/12/2023 Diabetic peripheral neuropathy 01/12/2023 Chest pain 02/05/2000 STRESS REACT NEC 02/05/2000 Tobacco use disorder 02/05/2000 Abnormal weight gain 02/05/2000 documented as of this encounter (statuses as of 03/09/2024) Resolved Problems Problem Noted Date Diagnosed Date Resolved Date ADVANCE DIRECTIVE INFORMATION 09/23/2005 03/07/2024 Overview: Information offered-patient declined documented as of this encounter (statuses as of 03/09/2024) Immunizations Name Administration Dates Next Due TD - Tetanus/Diptheria (ADULT) 10/03/1999 TDAP, Age 7 and older, IM (Adacel) [...] have concerns for your saf ety? No 01/05/2024 Do you have concerns for you r family's safety? (Household - for ages 0-17 years) Not on file 01/05/2024 Utilities Answer Date Recorded Do you have trouble paying y our heating, water, or electric bill? No 01/05/2024 Is your family able to pay t he heat, water, or electric bill? (Household - for ages 0-17 years) Not on file 01/05/2024 Does your family have access to good internet? (Household - for ages 0-17 years) Not on file 01/05/2024 Employment Status Answer Date Recorded Are you unemployed or without regular income? No 01/05/2024 Does the household have a [facility] source of income? (Household - for ages [...] 18 years and over) Not on file 01/05/2024 Does your family have a hard time getting a ride to doctors visits? (Household - for ages 0-17 years) Not on file 01/05/2024 Has lack of transportation k ept you from medical appointments, meetings, work, or from getting things needed for daily living? Check all that apply. No 01/05/2024 Do you (or your family) have trouble finding or paying for a ride (transportation)? (Household - for ages 0-17 years) Not on file 01/05/2024 Housing Stability Answer Date Recorded Do you currently live in a s helter or have no steady place to sleep at night? No 01/05/2024 Do you think you are at risk of becoming homeless? (Adult - for ages 18 years and over) Not on file 01/05/2024 Does your family worry about paying for your home or becoming homeless? (Household - for ages 0-17 years) Not on file 0 01/05/2024 Are you homeless or worried that you might be in the future? No 01/05/2024 Are you (or your family) lalo eless or worried that you might be in the future? (Household - for ages 0-17 years) Not on file Food Insecurity Answer Date Recorded Do you need food for this week? No 01/05/2024 Are you able to get enough f ood for your family? (Household - for ages 0-17 years) Not on file 01/05/2024 Does your family need food t his week? (Household - for ages 0-17 years) Not on file 01/05/2024 Do you always have enough fo od for your family? (Household - for ages 0-17 years) Not on file 01/05/2024 Sex and Gender Information Value Date Recorded Sex Assigned at Female 01/05/2024 2:57 PM EDT Gender Identity Female 01/05/2024 2:57 PM EDT Sexual Orientation Straight 01/05/2024 2: 57 PM EDT Job Start Date Occupation Industry Not on file Not on file Not on file documented as of this encounter Miscellaneous Notes * Telephone Encounter - Pretty Rincon LPN - 03/09/2024 3:05 PM EST Spoke with pt and made aware of message below. Pt is coming in today. Labs were printed out and faxed to [facility] Endocrinology. Pt was placed on nurse visit today to get the shots listed below. * Telephone Encounter - Ada Waterman PA-C - 03/09/2024 11:13 AM EST Urine culture not back Calcium is 11.2 Glucose is 140 Liver function is normal. Triglycerides are high but overall cholesterol is not bad There was nitrite in urine which is a good indicator of infection Suggest toradol and shot of antibiotic here in clinic today Do they want us to send her labs to endocrinology? Intractable paroxysmal hemicrania, unspecified chronicity pattern (Primary) - keTORolac (Toradol) 60 MG/2ML IM inj 60 mg Acute cystitis without hematuria - cefTRIAXone (Rocephin) (350 mg/mL) inj dilution 1,000 mg - Lidocaine 1 % (PF) inj 1 mL Ada Waterman PA-C 03/09/2024 11:15 AM * Telephone Encounter - Nithya Salamanca LPN - 03/09/2024 8:17 AM EST Patient's sister calling in to check on the status of her lab work, asking for Ada to review labs. Patient is having a severe migraine this morning started out trying aleve, then Toradol tablet which has not done anything asking if she would be able to get a Toradol injection in office. documented in this encounter Plan of Treatment Upcoming Encounters Date Type Department Care Team (Latest Contact Info) Description 03/21/2024 7:45 AM EST Hospital Encounter [place] [facility] [place] [address] [place] [address] Sarah Dickerson MD [address] [place] [address] 03/21/2024 7:45 AM EST - 03/21/2024 10:39 AM EST Surgery OR [facility] [place] [place] [address] [place] [id number] Sarah Dickerson MD [address] [place] [address] PARATHYROIDECTOMY 07/04/2024 12:00 PM EST Office Visit [facility] [address] [place] [address] Ada Waterman PA-C [address] [place] [address] Scheduled Procedures Name Priority Associated Diagnoses Date/Ti me PARATHYROIDECTOMY Hyperparathyroidism, primary (HCC) 03/21/2024 7:45 AM EST Health Maintenance Due Date Last [...] as of this encounter Visit Diagnoses Diagnosis Hyperparathyroidism, primary (HCC)- Primary Primary hyperparathyroidism Intractable paroxysmal hemicrania, unspecified chronicity pattern- Primary Acute cystitis without hematuria Acute cystitis Hyperparathyroidism, primary (HCC) Primary hyperparathyroidism documented in this encounter Care Teams Academic Support Director Relationship Specialty Start Date End Date Ada Waterman PA-C [address] [facility] [place] [address] PCP - General Physician Motorboat Mechanic 09/02/22 documented as of this encounter
--- OUTSIDE RECORDS SUMMARY | 2024-03-26 10:15 | External Medical Summary ---
Author Name Unknown Address Unknown Organization [id number]:LABORATORY [facility] [place] [address] - [address] [place] [address] Laboratory Report Ordering Provider Test Date Status BELA CASEY 03/24/2024 11:48:23 Final Observation Date Value Abnormality Reference (Units ) Status Calcium 03/24/2024 11:48:23 9.9 8.4-10.2 ( mg/dL) Final Performing Location LABORATORY [facility] [place] [address] - [address] [place] [address]
--- OUTSIDE RECORDS SUMMARY | 2024-03-26 10:15 | External Medical Summary ---
Author Name Unknown Address Unknown Organization : Laboratory Report Ordering Provider Test Date Status MIKO MCKEON 03/21/2024 10:20:07 Final Observation Date Value Abnormality Reference (Units ) Status Glucose Point of Care 03/21/2024 10:20:07 195 Above high normal 70-120 (mg/dL) Final Performing Location
--- OUTSIDE RECORDS SUMMARY | 2024-03-26 10:15 | External Medical Summary ---
Author Name Unknown Address Unknown Organization K01:LABORATORY [facility] [place] [place] - [address] [place] [address] Laboratory Report Ordering Provider Test Date Status MIKO MCKEON 03/21/2024 10:33:00 Final Observation Date Value Abnormality Reference (Units ) Status Parathyrin.intact [Mass/volume] in Serum or Plasma 03/21/2024 10:33:00 43 10-65 (pg/mL) Final Performing Location LABORATORY [facility] [place] [place] - [address] [place] [address]
--- OUTSIDE RECORDS SUMMARY | 2024-03-26 10:15 | External Medical Summary ---
Author Name Unknown Address Unknown Organization : Laboratory Report Ordering Provider Test Date Status MIKO MCKEON 03/22/2024 08:09:42 Final Observation Date Value Abnormality Reference (Units ) Status Glucose Point of Care 03/22/2024 08:09:42 155 Above high normal 70-120 (mg/dL) Final Performing Location
--- OUTSIDE RECORDS SUMMARY | 2024-03-26 10:15 | External Medical Summary ---
Author Name Unknown Address Unknown Organization [id number]:LABORATORY [facility] [place] [address] - [address] [place] [id number] Laboratory Report Ordering Provider Test Date Status MIKO MCKEON 03/25/2024 09:28:12 Final Observation Date Value Abnormality Reference (Units ) Status Calcium 03/25/2024 09:28:12 9.4 8.4-10.2 ( mg/dL) Final Performing Location LAB[facility]ATORY [facility] [place] [address] - [address] [place] [address]
--- OUTSIDE RECORDS SUMMARY | 2024-03-26 10:15 | External Medical Summary | Summary of Care ---
Author Name Unknown Organization [facility] [address] [facility] [address] Phone [phone] Care Team Providers Care Gopherman Name Role Phone Ada Waterman PA-C Primary Care Provider [phone] Reason for Visit * Reason Onset Date Comments Medication Refill 03/13/2024 Encounter Details Date Type Department Care Team (Late st Contact Info) Description 03/13/2024 Refill [facility] [address] [place] [id number] Ada Waterman PA-C [address] [place] [address] Fluid retention Allergies Active Allergy Reactions Criticality Noted Date Comments Canagliflozin 10/08/2022 Uti, yeast Metformin 10/08/2022 Constant diarrhea documented as of this encounter (statuses as of 03/15/2024) Medications OneTouch Ultra In Vitro Strip use 1 TEST STRIP to TEST three times a day before meals 09/03/19 23 Active OneTouch Delica Plus [id number] use three times a day before meals [...] or vomiting 12 Tablet 02/11/20 24 Active Lisinopril 2.5 MG Oral Tablet (Prinivil) TAKE 1 TABLET BY MOUTH IN THE MORNING 90 Tablet 3 02/15/20 24 Active Levothyroxine Sodium 100 MCG Oral Tablet (Levoxyl) TAKE 1 TABLET BY MOUTH ONCE DAILY ON AN EMPTY STOMACH 90 Tablet 3 02/15/20 24 Active Simvastatin 20 MG Oral Tablet (Zocor) [...] Rizatriptan Benzoate 10 MG Oral Tablet Disintegrating (Maxalt-RESIN MIXER)Indica tions:Intractable paroxysmal hemicrania, unspecified chronicity pattern Take [...] and during if needed 5 Tablet 03/02/20 24 Active Trimethobenzamide HCl 300 MG Oral CapsuleIndications :Nausea and vomiting, unspecified vomiting type Take 1 Capsule by mouth in the morning and 1 Capsule at noon and 1 Capsule in the evening and 1 Capsule before bedtime. 40 Capsule 1 03/09/20 24 Active Furosemide 20 MG Oral Tablet (Lasix)Indications :Fluid retention One tab by mouth in the morning for fluid retention. Take one dose and hold. 3 Tablet 03/15/20 24 Active Furosemide 20 MG Oral Tablet (Lasix)Indications :Fluid retention One tab by mouth int eh morning for fluid retention. Take one dose and hold. 3 Tablet 01/29/20 24 024 Discontin ued(Refil l) Hospital, Clinic, or Other Facility Administered Medication Ordered Dose Route Frequency Start Date End Date Status cefTRIAXone (Rocephin) (350 mg/mL) inj dilution 1,000 mgIndications:Acute cystitis without hematuria 1000 mg IM Q24H 03/09/2024 Active documented as of this encounter (statuses as of 03/15/2024) Active Problems Problem Noted Date Diagnosed Date Hyperparathyroidism, primary 02/22/2024 Type 2 diabetes mellitus wit h hemoglobin A1c goal of less than 7.0% 01/12/2023 Diabetic peripheral neuropathy 01/12/2023 Chest pain 02/05/2000 STRESS REACT NEC 02/05/2000 Tobacco use disorder 02/05/2000 Abnormal weight gain 02/05/2000 documented as of this encounter (statuses as of 03/15/2024) Resolved Problems Problem Noted Date Diagnosed Date Resolved Date ADVANCE DIRECTIVE INFORMATION 09/23/2005 03/07/2024 Overview (09/23/2005): Information offered-patient declined documented as of this encounter (statuses as of 03/15/2024) Immunizations Name Administration Dates Next Due TDAP, [...] money to buy more. Never true 01/05/20 Within the past 12 months, t he [...] 01/05/2024 Does the household have a re lar source of income? 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 Take one dose and hold. Authorizing Provider: ADA WATERMAN * Telephone Encounter - Manuel Molina [facility] - 03/15/2024 9:21 AM ESTPending Prescriptions: Disp Refills Furosemide 20 MG Oral Tablet (Lasix) 3 Tabl*0 Sig: One tab by mouth in the morning for fluid retention. Take one dose and hold. * Telephone Encounter - UdayManuel gonzales [facility] - 03/15/2024 9:19 AM EST Previously prescribed for acute use. Please see message from patient. Patient comment: I am retaining alot if fluids can you please send in a new script to the [facility]. Forwarding to provider for further evaluation. Please approve and authorize additional refills if you would like patient to continue this medication. Did you pend patient's preferred pharmacy and medication before forwarding?yes Pharmacy: [facility] [address] [address] Pending Prescriptions: Disp Refills Furosemide 20 MG Oral Tablet (Lasix) 3 Tabl*0 Sig: One tab by mouth in the morning for fluid retention. Take one dose and hold. Last Visit: 03/02/2024 (in office), Visit date not found (telemedicine) Next Visit: Visit date not found If no future appointments scheduled, and last appointment is greater than a year ago, please schedule patient for a follow-up appointment Last date the medication was ordered: 01/29/24 Is this request for a controlled substance?No Urine Drug Screen:No results found for this or any previous visit. Patient Phone Numbers Labs: Lab Results Component Value Date/Time CREAT 1.0 03/08/2024 12:30 PM CREAT 0.6 (L) 05/08/2006 11:07 AM POTASSIUM 4.6 03/08/2024 12:30 PM POTASSIUM 4.2 05/08/2006 11:07 AM TSH 4.31 (H) 01/20/2024 10:00 AM TSH 2.10 05/08/2006 11:07 AM LDL 79 03/08/2024 12:30 PM ALT 19 03/08/2024 12:30 PM ALT 23 05/08/2006 11:07 AM HGBA1C 7.4 (H) 01/20/2024 10:00 AM documented in this encounter Plan of Treatment Upcoming Encounters Date Type Department Care Team (Latest Contact Info) Description 03/21/2024 7:45 AM EST Hospital Encounter OR [facility], OPERATING ROOM [facility] [address] [place] [address] Sarah Dickerson MD [address] [place] [address] 03/21/2024 7:45 AM EST - 03/21/2024 10:39 AM EST Surgery OR [facility], OPERATING ROOM [facility] [address] [facility] [place] [address] Sarah Dickerson MD [address] [place] [address] PARATHYROIDECTOMY 07/04/2024 12:00 PM EST Office Visit [facility] [address] [facility] [address] Ada Waterman PA-C [address] [place] [address] Scheduled Procedures Name Priority Associated Diagnoses Date/Ti [...] 10/09/2022, Additional history exists GFR 03/08/2025 03/08/2024, 10/05/2023, 01/20/2024, Additional history exists Lipid Panel 03/08/2029 [...] Diagnosis Hyperparathyroidism, primary (HCC)- Primary Primary hyperparathyroidism Fluid retention Other fluid overload Hyperparathyroidism, primary (HCC) Primary hyperparathyroidism documented in this encounter Care Teams Gopherman Relationship Specialty Start Date End Date Ada Waterman PA-C [address] [facility] [place] [address] PCP - General Physician Chief Building Inspector 09/02/22 documented as of this encounter
--- OUTSIDE RECORDS SUMMARY | 2024-03-26 10:15 | External Medical Summary ---
Author Name Unknown Address Unknown Organization [id number][place] [place] [address] [place] [address] Laboratory Report Ordering Provider Test Date Status RACHAEL JEFF 03/21/2024 11:25:00 Final Observation Date Value Abnormality Reference (Units ) Status Parathyrin.intact [Mass/volume] in Serum or Plasma 03/21/2024 11:25:00 10 Below low normal 15-65 (pg/mL) Final Performing Location [facility] [place] [address] [place] [address]
--- OUTSIDE RECORDS SUMMARY | 2024-03-26 10:15 | External Medical Summary ---
Author Name Unknown Address Unknown Organization [id number]:[facility] [place] [address] [place] [address] Laboratory Report Ordering Provider Test Date Status BELA CASEY 03/24/2024 11:48:23 Final Observation Date Value Abnormality Reference (Units ) Status Parathyrin.intact [Mass/volume] in Serum or Plasma 03/24/2024 11:48:23 4 Below low normal 15-65 (pg/mL) Final Performing Location [facility] [place] [address] [place] [address]
--- OUTSIDE RECORDS SUMMARY | 2024-03-26 10:15 | External Medical Summary | Summary of Care ---
Author Name Unknown Organization [facility] Address [address] [place] [address] Phone [phone] Care Team Providers Care Mechanical Facilities Technician Name Role Phone Ada Waterman PA-C Primary Care Provider [phone] Reason for Visit * Reason Onset Date Comments Nurse Documentation 03/09/2024 Encounter Details Date Type Department Care Team (Late st Contact Info) Description 03/09/2024 Telephone [facility] [address] [place] [address] Ada Waterman PA-C [address] [place] [address] Nurse Documentation Allergies Active Allergy Reactions Criticality Noted Date Comments Canagliflozin 10/08/2022 Uti, yeast Metformin 10/08/2022 Constant diarrhea documented as of this encounter (statuses as of 03/09/2024) Medications Medication Sig Dispensed Refills Start Date End Date Status OneTouch Ultra In Vitro Strip use 1 TEST STRIP to TEST three times a day before meals 09/02/2022 Active OneTouch Delica Plus [id number] use three times a day before meals [...] Rizatriptan Benzoate 10 MG Oral Tablet Disintegrating (Maxalt-OTOLARYNGOLOGY TEACHER)Indicatio ns:Intractable paroxysmal hemicrania, unspecified chronicity pattern Take [...] during if needed 5 Tablet 03/02/2024 Active Trimethobenzamide HCl 300 MG Oral CapsuleIndications:Na usea and vomiting, unspecified vomiting type Take 1 Capsule by mouth in the morning and 1 Capsule at noon and 1 Capsule in the evening and 1 Capsule before bedtime. 40 Capsule 1 03/09/2024 Active Hospital, Clinic, or Other Facility Administered [...] 03/09/2024) Immunizations Name Administration Dates Next Due TDAP, [...] encounter Miscellaneous Notes * Telephone Encounter - Misti Larsen LPN - 03/09/2024 4:08 PM EST Patient has been informed of below message and verbalized understanding. * Telephone Encounter - Ada Waterman PA-C - 03/09/2024 3:48 PM EST We can try other things but they all have the potential to be sedating Med sent Nausea and vomiting, unspecified vomiting type (Primary) - Trimethobenzamide HCl 300 MG Oral Capsule; Take 1 Capsule by mouth in the morning and 1 Capsule at noon and 1 Capsule in the evening and 1 Capsule before bedtime. Ada Waterman PA-C 03/09/2024 3:49 PM * Telephone Encounter - Misti Larsen LPN - 03/09/2024 3:44 PM EST Patient came in for shots and states She is on a Scopolamine patch and it is not working and would like to have something else sent in. She is nervous that she is getting addicted to the patches and does not want to have withdrawal after surgery. Pharmacy is selected if you send in a script. documented in this encounter Plan of Treatment Upcoming Encounters Date Type Department Care Team (Latest Contact Info) Description 03/21/2024 7:45 AM EST Hospital Encounter [place] [facility] [facility] [address] [place] [address] Sarah Dickerson MD [address] [place] [address] 03/21/2024 7:45 AM EST - 03/21/2024 10:39 AM EST Surgery OR [facility], OPERATING ROOM [facility] [address] [place] [address] Sarah Dickerson MD [address] [place] [address] PARATHYROIDECTOMY 07/04/2024 12:00 PM EST Office Visit [facility] [address] [place], [place] [id number] Ada Waterman PA-C [address] [place] [address] Scheduled Procedures Name Priority Associated Diagnoses Date/Ti me PARATHYROIDECTOMY Hyperparathyroidism, primary (HCC) 03/21/2024 7:45 AM EST Health Maintenance Due Date Last Done Comments DISCUSS TOBACCO CESSATION (REFER TO SMARTSET #[id number]) 1968 Cologuard 2013 Colonoscopy 2013 Fecal Occult [...] Diagnosis Hyperparathyroidism, primary (HCC)- Primary Primary hyperparathyroidism Nausea and vomiting, unspecified vomiting type- Primary Hyperparathyroidism, primary (HCC) Primary hyperparathyroidism documented in this encounter Care Teams Mechanical Facilities Technician Relationship Specialty Start Date End Date Ada Waterman PA-C [address] [place] [address] PCP - General Physician Nuclear Reactor Operator 09/02/22 documented as of this encounter
--- OUTSIDE RECORDS SUMMARY | 2024-03-26 10:15 | External Medical Summary ---
Author Name Unknown Address Unknown Organization K01:[facility] [place] - [address] [place] [address] Laboratory Report Ordering Provider Test Date Status MIKO MCKEON 03/21/2024 10:01:00 Final Observation Date Value Abnormality Reference (Units ) Status Parathyrin.intact [Mass/volume] in Serum or Plasma 03/21/2024 10:01:00 251 Above high normal 10-65 (pg/mL) Final Performing Location [facility] [place] - [address] [place] [address]
--- OUTSIDE RECORDS SUMMARY | 2024-03-26 10:15 | External Medical Summary ---
Author Name Unknown Address Unknown Organization : Laboratory Report Ordering Provider Test Date Status MIKO MCKEON 03/21/2024 09:47:45 Final Observation Date Value Abnormality Reference (Units ) Status Glucose Point of Care 03/21/2024 09:47:45 205 Above high normal 70-120 (mg/dL) Final Performing Location
--- OUTSIDE RECORDS SUMMARY | 2024-03-26 10:15 | External Medical Summary ---
Author Name Unknown Address Unknown Organization : Laboratory Report Ordering Provider Test Date Status MIKO MCKEON 03/21/2024 16:17:00 Final Observation Date Value Abnormality Reference (Units ) Status Glucose Point of Care 03/21/2024 16:17:00 229 Above high normal 70-120 (mg/dL) Final Performing Location
--- OUTSIDE RECORDS SUMMARY | 2024-03-26 10:15 | External Medical Summary ---
Author Name Unknown Address Unknown Organization : Laboratory Report Ordering Provider Test Date Status MIKO MCKEON 03/21/2024 06:27:16 Final Observation Date Value Abnormality Reference (Units ) Status Glucose Point of Care 03/21/2024 06:27:16 150 Above high normal 70-120 (mg/dL) Final Performing Location
--- OUTSIDE RECORDS SUMMARY | 2024-03-26 10:15 | External Medical Summary | Summary of Care ---
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 Name Role Phone Ada Waterman PA-C Primary Care Provider [phone] Reason for Visit * Auth/Cert Specialty Diagnoses / Procedures Referred By Contac t Referred To Contact Diagnoses Hyperparathyroidism, primary (HCC) Hyperparathyroidism, primary (HCC) [E21.0] Procedures EXPLORE PARATHYROID GLANDS PARATHYROIDECTOMY Sarah Dickerson MD [address] [place] [address] Phone: tel: fax: [facility], OPERATING ROOM [facility] [address] [place] [address] Phone: tel: Referral ID Status Reason Start Date Expiration Date Visits Re quested Visits Authorized [id number] Encounter Details Date Type Department Care Team (Latest Contact Info) Description 03/21/2024 5:43 AM EST - 03/22/2024 10:20 AM EST Hospital Encounter Post Anesthesia Care Unit Extend, [facility] 2nd Floor [address] [facility] [place] [address] Sarah Dickerson MD [address] [facility] [place] [address] Discharge Disposition: Home - Self Care Allergies Active Allergy Reactions Criticality Noted Date Comments Canagliflozin Other (Please comment) Low 10/08/2022 Uti, yeast Metformin Diarrhea Low 10/08/2022 Constant diarrhea Oxycodone Nausea/vomiting 03/21/2024 documented as of this encounter (statuses as of 03/22/2024) Medications OneTouch Ultra In Vitro Strip use 1 TEST STRIP to TEST three times a day before meals Active OneTouch Delica Plus [id number] use three times a day before meals 023 Active glipiZIDE 5 MG Oral Tablet (Glucotrol)Indica tions:Type 2 diabetes mellitus with hemoglobin A1c goal of less than 7.0% (HCC) TAKE 1 TABLET BY MOUTH TWICE DAILY 30 MINUTES BEFORE MEALS 180 Tablet 1 024 Active Meclizine HCl 25 MG Oral Tablet (Antivert)Indicat ions:Dizziness Take 0.5-1 Tablets by mouth 3 times a day as needed for Dizziness. 30 Tablet 1 024 Active Promethazine HCl 25 MG Oral Tablet (Phenergan) Take 1 Tablet by mouth every 6 hours as needed for Other (dizziness). or vomiting 12 Tablet Active Additional Information Patient not taking.Reported on 03/21/2024 Lisinopril 2.5 MG Oral Tablet (Prinivil) TAKE 1 TABLET BY MOUTH IN THE MORNING 90 Tablet 3 024 Active Levothyroxine Sodium 100 MCG Oral Tablet (Levoxyl) TAKE 1 TABLET BY MOUTH ONCE DAILY ON AN EMPTY STOMACH 90 Tablet 3 024 Active Additional Information Patient taking differently: 112 mcg Oral [id number], TAKE 1 TABLET BY MOUTH ONCE DAILY ON AN EMPTY STOMACH, Reported on 03/21/2024 Simvastatin 20 MG Oral Tablet (Zocor) Take 1 Tablet by mouth at bedtime. 90 Tablet 1 024 Active Ketorolac Tromethamine 10 MG Oral Tablet (Toradol)Indicati ons:Intractable paroxysmal hemicrania, unspecified chronicity pattern Take 1 Tablet by mouth 4 times a day as needed for Pain, Severe. Do not take for longer than 5 days 20 Tablet 024 Active Scopolamine 1 MG/3DAYS Transdermal Patch 72 Hour (Transderm-Scop)I ndications:Dizzin ess Place patch on skin , replace daily for extreme dizziness and nausea 30 Patch 1 Active Rizatriptan Benzoate 10 MG Oral Tablet Disintegrating (Max[employer]-CORPORATE SERVICES MANAGER)Indic ations:Intractabl e paroxysmal hemicrania, unspecified chronicity pattern [...] on 03/21/2024 Furosemide 20 MG Oral Tablet (Lasix)Indication s:Fluid retention One tab by mouth in the morning for fluid retention. Take one dose and hold. 3 Tablet Active Calcium Carbonate Antacid 750 MG Oral Tablet Chewable (Tums E-X) Chew & swallow 2 Tablets by mouth 3 times per day (morning, noon, before bedtime). 90 Tablet 3 4 10:14 AM EST Active Calcitriol 0.25 MCG Oral Capsule (Rocaltrol) Take 1 Capsule by mouth twice per day (morning, before bedtime). 30 Capsule 4 10:14 AM EST Active traMADol HCl 50 MG Oral Tablet (Ultram) Take 1 Tablet by mouth every 6 hours as needed for severe pain. 10 Tablet 4 10:14 AM EST 024 Active Sulfamethoxazole- Trimethoprim 800-160 MG Oral Tablet (Bactrim DS)Indications:Re current UTI Take 1 Tablet by mouth in the morning and 1 Tablet before bedtime. Do all this for 7 days. Until gone. 14 Tablet 1 024 11/19/ 2024 Discontinued documented as of this encounter (statuses as of 03/22/2024) Active Problems Problem Noted Date Diagnosed Date Hyperparathyroidism, primary 02/22/2024 Type 2 diabetes mellitus wit h hemoglobin A1c goal of less than 7.0% 01/12/2023 Diabetic peripheral neuropathy 01/12/2023 Chest pain 02/05/2000 STRESS REACT NEC 02/05/2000 Tobacco use disorder 02/05/2000 Abnormal weight gain 02/05/2000 documented as of this encounter (statuses as of 03/22/2024) Resolved Problems Problem Noted Date Diagnosed Date Resolved Date ADVANCE DIRECTIVE INFORMATION 09/23/2005 03/07/2024 Overview (09/23/2005): Information offered-patient declined documented as of this encounter (statuses as of 03/22/2024) Immunizations Name Administration Dates Next Due TDAP, Age 7 and older, IM (Adacel) 06/14/2020 documented as of this encounter Social History Tobacco Use Types Packs/Day Years Used Date Smoking Tobacco: Every Day Cigarettes 1 10 Smokeless Tobacco: Never Tobacco Cessation:Ready to Q uit: No; Counseling Given: Not Answered Alcohol Use Standard Drinks/Week Comments No 0 [...] 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 Not on file Not on file Not on file documented as of this encounter Last Filed Vital Signs Vital Sign Reading Time Taken Comments Blood Pressure 128/72 03/22/2024 8:00 AM EST Pulse 62 03/22/2024 8:00 AM EST Temperature 36.7 C (98.1 F) 03/22/2024 8:00 AM ES T Respiratory Rate 16 03/22/2024 8:00 AM EST Oxygen Saturation 90% 03/22/2024 8:00 AM EST Inhaled Oxygen Concentration - - Weight 92.9 kg (204 lb 14.4 oz) 03/21/2024 5:54 AM EST Height 167.6 cm (5' 6") 03/21/2024 5:54 AM EST Body Mass Index 33.07 03/21/2024 5:54 AM EST documented in this encounter Functional Status * Are you deaf or do you have serious difficulty hearing? Answer Date of Assessment Author No 03/21/2024 2:45 PM EST Aaron Campa RN * Are you blind or do [...] Aaron Benavides RN documented in this encounter Discharge Instructions * Discharge Instr - AVS* Kobi Tijerina, DO - 03/21/2024 6:38 AM EST Discharge Date: 03/21/[address] Dickerson of the department of ENT at [phone] during business hours for any questions or test results. For after-hours emergencies call [phone] and have your doctor paged. The information below provides you with the instructions and the list of medications you need to betaking following discharge from the hospital. If you have any questions, please ask before leaving.Please carry this letter with you when you see your doctor in the clinic. If you have questions, you can reach us at the numbers above. Diet: Start with clear liquids (jello, tea, apple juice), avoid dairy products (milk, cheese, pudding, ice cream) and fried, greasy foods. Advance to unrestricted diet as tolerated. If nausea should occur, have clear liquids only until soft foods can be tolerated. Activity: A responsible adult must be with the patient for 24 hours after surgery. Rest today and tomorrow, and then increase activity as tolerated. No strenuous activity for 2 weeks. Driving: n/a. Date you may return to work or school: One week Follow up as scheduled. Special Instructions: Post-Op Instructions - Thyroidectomy/Parathyroidectomy Contact our clinic at the number listed above for any of the following concerns: Bleeding in Your Neck- Some bruising is normal but you should not have rapid or excess bruising andthis may be owing to bleeding in your neck. If this is severe or you are panicked owing to trouble breathing, sudden swelling in your throat, or are unable to swallow, call 911 immediately. Low Calcium- If you develop numbness and tingling in your face, lips, fingertips, or toes take two additional doses of calcium carbonate (TUMS). The symptoms should go away in 15 to 30 minutes. If the symptoms persist, at 30 minutes you can repeat this. If the symptoms do still do not go away, callthe ENT clinic. Infection- If you have a temperature above 100.4F by mouth for 2 readings taken 4 hours apart, increased redness and/or warmth at the incision site, puslike drainage, or pain not relieved by pain pills, there may be an infection in your neck. Please call your the ENT clinic. Care for the Surgical Site You may shower, but keep neck area dry by using a washcloth to cover the incision. If it gets damp,pat dry with a clean towel. Do NOT apply any ointment or lotion to the incision. Do NOT remove the surgical tape covering your incision. You will be provided with instructions on how to remove the tape gradually after your follow up appointment. documented in this encounter H&P Notes * Bruna Samuels MD - 03/21/2024 6:44 AM EST History & Physical - Otolaryngology [facility]-[address] [address] Name: Regina Purcell Location: OR [facility]/OR Date: 03/21/2024 Time: 6:44 AM CC: hyperparathyroidism HPI: The patient presents today for scheduled surgery. She denies any changes to health since last clinic visit. Denies recent illness, or use of ASA, NSAID's, or any other anticoagulants. Medical History: Patient Active Problem List Diagnosis Chest pain STRESS REACT NEC Tobacco use disorder Abnormal weight gain Type 2 diabetes mellitus with hemoglobin A1c goal of less than 7.0% (HCC) Diabetic peripheral neuropathy (HCC) Hyperparathyroidism, primary (HCC) Past Medical History: Diagnosis Date Diabetes (HCC) Past Surgical History: Procedure Laterality Date REMOVE GALLBLADDER 05/04/93 Review of patient's allergies indicates: Allergen Reactions Invokana [Canagliflozin] Other (Please comment) Uti, yeast Metformin Diarrhea Constant diarrhea Social History Tobacco Use Smoking status: Every Day Current packs/day: 1.00 Average packs/day: 1 pack/day for 10.0 years (10.0 ttl pk-yrs) Types: Cigarettes Smokeless tobacco: Never Substance Use Topics Alcohol use: No Vaping/E-Cigarette Use Vaping/E-Cigarette Use Never User Vaping/E-Cigarette Substances Vaping/E-Cigarette Devices Family History Problem Relation Name Age of Onset Renal Hx Mother Chelsea Diabetes Mother Chelsea Thyroid Disorder Mother Chelsea Rheum arthritis Father Sebastian Heart disease Father Sebastian valvular , congenital issue and acquired Cancer Brother Raphael kidney Review of Systems: Negative unless otherwise indicated in HPI. Physical Exam: Vital Signs: BP: 150 mmHg/86 mmHg (03/21/24608) Pulse: 75 (03/21/24608) Resp: 16 (03/21/24608) Temp: 36.39 C (03/21/24608) Temp Summary: Temp Min: 36.4 C (97.5 F) Max: 36.4 C (97.5 F) SpO2: 98 % (03/21/24608) O2 flow rate: Supplemental O2 Delivery: Room Air, None (03/21/24640) General: No acute distress, resting comfortably in bed. Heart: Ausculation of the heart revealed a regular rate and rhythm without murmur. Lungs: The lungs were auscultated and breath sounds were clear bilaterally. Neck: no palpable masses Plan: - NPO - SCDs - Proceed with parathyroid exploration and parathyroidectomy Patient will be discussed with Dr. Dickerson. Bruna Samuels MD Otolaryngology - Head & Neck Surgery Resident Cosigned by Sarah Dickerson MD at 03/21/2024 8:17 AM EST documented in this encounter Nursing Notes * Shikha Hussein RN - 03/22/2024 9:29 AM EST Clinical Goal(s): pt,s pain discomfort will be mangable (03/22/24 0100) Possible barriers to meeting goal(s)/advancing plan of care: recent surgery Stability of the patient: Moderately stable - low risk of patient condition declining or worsening Summary regarding today's goal(s): Met: Pt's pain was well managed this morning Recommendations: Pt said pain was improved this morning * Shikha Jacobsen RN - 03/21/2024 10:31 PM EST Pt conts to c/o severe incisional and internal throat pain. Offered ice chips popsicles. Incisionalarea red with some swelling. No difficulty swallowing or breathing. Pt requesting further pain intervention. Given ice pack and service notified. * Lisa Campa RN - 03/21/2024 11:52 AM EST Dual Licensed Skin Assessment completed by Lisa Dawson RN and Larissa Daniel RN. The patient is/has a N/A Skin Breakdown (includes non blanchable erythema): Yes - Surgical/Procedural changes only. * Linda Persaud RN - 03/21/2024 6:41 AM EST Dual Licensed Skin Assessment completed by Mehdi Persaud RN and Dhara Sarkar RN. The patient is/has a N/A Skin Breakdown (includes non blanchable erythema): No * Lynn Crenshaw NA - 03/21/2024 6:17 AM EST Patient does not meet criteria for testing. Pt. Had a Hysterectomy. * Opal Brown RN - 03/17/2024 9:48 AM EST Presurgery instructions sent to patient via [employer] message. Pre-operative chart review completed. NO ANESTHESIA EVAL REQUESTED PER CASE DOCUMENTATION. PREOP PATIENT INFORMATION AND EDUCATION: MEDICATION INSTRUCTIONS: The day of surgery/procedure, you may TAKE the following medications with a sip of water up to 2 hours prior to your arrival time: Levothyroxine AVOID/ DO NOT TAKE any medications the morning of surgery/procedure that are not listed above. STOP taking the following medications the noted number of days prior to surgery/procedure unless otherwise specified by your surgeon: Please follow surgeon's instructions regarding use of Aspirin, Coumadin, Plavix, Eliquis, and any other blood thinner including NSAIDs (non-steroidal anti- inflammatory drugs, eg, Advil, Ibuprofen, Motrin, Aleve, Naproxen); if you have any questions regarding your anticoagulation therapy please contact your surgeon's clinic. Please verify any proposed stoppage of your anticoagulation therapy with the agent's prescribing provider. 10 days prior to surgery/procedure Stop all Herbal supplements, Green Tea, Turmeric, Melatonin, CBD, THC, etc. Stop all Vitamins (including Vitamin E) 24 hours prior to surgery/procedure DO NOT consume any alcohol. DO NOT use medical marijuana. DO NOT smoke or use tobacco products of any kind after midnight prior to surgery. *Using any of these products may increase your risks of procedural complications. IF IT IS LESS THAN RECOMMENDED STOPPAGE TIME PLEASE STOP AT TIME OF NOTIFICATION. FASTING RECOMMENDATIONS: To reduce risk, it is important for all elective surgery patients to follow the specific fasting guidelines listed below. If you have received more stringent guidelines, please follow the MOST RESTRICTIVE guidelines that you have been provided. DO NOT EAT after midnight on the night prior to your surgery date. You are allowed to drink clear liquids up to two hours prior to arrival time to the hospital or surgery center. Examples of clear liquids include water, clear fruit juice without pulp, clear carbonated beverages, clear tea, and black coffee. Any drinks given by your surgical service take as directed. THE DAY BEFORE YOUR SURGERY: -Drink plenty of fluid the day before your surgery. Contact your surgeon's office if you develop any of the following within 2 weeks of surgery: A cold Infection Fever Shingles Chicken pox or exposure to chicken pox Open areas such as scrapes, cuts, mosquera or other skin conditions Rashes GENERAL INSTRUCTIONS FOR PREPARING FOR SURGERY: BATHING INSTRUCTIONS: Bathe the evening prior to and the morning of surgery/procedure. Cleanse your body using ONLY anti-bacterial soap (eg, Dial, Safeguard) or any specific soap/cleansers and instructions provided by your surgeon (eg, Chlorhexidine). -You should brush your teeth the morning of surgery. Do NOT apply any lotions, powders, sprays, creams, oils, make-up, or deodorants after bathing. No hairspray, or nail romansh on fingers or toes. Day of surgery/procedure do not use tampons. If you wear contacts wear your eyeglasses if available otherwise bring your contact supplies with you to remove them prior to your surgery/procedure. If you wear glasses or dentures, please bring cases in which you can store them during your surgery. Please remove all piercings and jewelry and leave them at home. Wear comfortable and loose clothing. -Please leave all valuables at home. -If you use a CPAP and are staying overnight, please bring your mask and tubing with you to the hospital. -If you use an assistive mobility device (walker, cane, etc), please label it with your name and bring to hospital. -An escort cdl flatbed truck driver is required if you are being discharged the same day of the surgery. You should have a responsible adult over the age of 18 [address] you home. This person should be present with youin the hospital at the time of discharge and for the first 24 hours after the surgery to support your needs. If you are taking a taxi home, you must have your responsible libertarian accompany you in the taxi ride home at the time of discharge. OR times subject to change. Please check voicemail messages the day/evening before your surgery forany updates. PRE-OP: You will be taken to the pre-op area where your vital signs (blood pressure, pulse and temperature)will be taken. Any preparations that need to be done will be done there. When it is time for your surgery, you will be taken to the operating room. PARENTS OF PEDIATRIC PATIENTS WILL BE ALLOWED TO STAY WITH THEIR CHILDREN UNTIL THEY ARE ESCORTED TO THE OPERATING ROOM OUTPATIENT SURGERY PATIENTS: After your surgery you will be taken to the Same Day Surgery Unit when you are awake and will go home from there. You will get instructions about your home care before you leave. Arrange to have someone drive you home from the hospital. You may not drive for 24 hours after anesthesia. You must havean adult stay with you at home for 24 hours after your operation. This is very important. If you are not able to comply with these guidelines, your Short Stay surgery cannot be done. ADMISSION PATIENTS: After your stay in the recovery area, you will be taken to your room. Your family may visit you in your room based on current visitation policy. If a next day discharge is expected, it is important to make arrangements for a cdl flatbed truck driver to take you home. Please be aware our visitation policies are subject to change Professionals, attendants, caregivers or family members are allowable visitors for patients with intellectual, developmental or cognitive disabilities, communication barriers or behavioral concerns. Because patients' and families' needs vary, they will be taken into account when applying visitation restrictions. [facility]: Contact # [phone] Directions to Surgical Suite in from the [facility] Entrance The Surgical Waiting Room can be found in the Lobby [facility]. [facility] and the Waiting Room is directly in front of you. Proceed to check in and give them your name. Directions to Surgical Suite from the East Entrance Enter the East entrance and follow the hallway to the J elevator. Take the J elevator up to Level 1. Continue down the long hallway to the main [facility]. The Surgical Waiting Room will be on your Right. Proceed to check in and give them your Name. Directions to Surgical Suite from the Parking Garage Enter the [facility] lobby and proceed down the rogel to the left. At the end of the rogel, turn right. Continue down the long hallway to the main [facility]. The Surgical Waiting Room will be on your Right. Proceed to check in and give them your Name. THANK YOU FOR CHOOSING [facility]! documented in this encounter OR Notes * OR Surgeon - Kobi Tijerina DO - 03/21/2024 11:19 AM EST OPERATIVE RECORD [address] [address] Regina Purcell MR # [id number] LOCATION: OR (Operating Room 1) SERVICE: Otolaryngology - Head & Neck Surgery DATE OF PROCEDURE: 03/21/2024 PRE-OP DIAGNOSIS: Primary hyperparathyroidism POST-OP DIAGNOSIS: Same plus four gland hyperplasia PROCEDURE: Parathyroid exploration with parathyroidectomy, intra-operative laryngeal nerve monitoring Modifier 22 for increased procedural services. This case required greater than usual effort relatedto the following factors: increased time, increased technical difficulty of procedure, severity of patient's condition, increased physical and mental effort required. Multi-gland disease requiring bilateral neck exploration, multiple rounds of PTH blood draws, increased operative time SURGEON: Nixon Dickerson MD ASSISTANTS: Brennan Tijerina DO ANESTHESIA: General endotracheal anesthesia OPERATIVE FINDINGS: Pre-incision rapid PTH = 225 pg/mL Grossly enlarged right superior parathyroid gland excised and sent for frozen section; reported as hypercellular parathyroid tissue PTH failed to fall 10 minutes following excision Grossly enlarged left superior parathyroid gland excised and sent for frozen section; reported as hypercellular parathyroid tissue PTH failed to fall 10 minutes following excision Right inferior parathyroid gland was grossly enlarged, excised and reported as hypercellular parathyroid tissue on frozen section Left inferior parathyroid gland identified and sampled; reported as mildly hypercellular parathyroid tissue (the lease of all four glands). Remainder of left inferior parathyroid gland left in-vivo Rapid PTH 10 minutes following excision of 3.5 glands = 43 pg/mL Bilateral recurrent laryngeal nerves identified, preserved and stimulated strongly at conclusion ofthe case DRAINS and/or PACKS: None ESTIMATED BLOOD LOSS: 10 mL FLUIDS: Per anesthesia record URINE: 0 mL SPECIMEN(s) OBTAINED and DISPOSITION: ID Source Tests Priority Auth Provider Collected By Collect Time Fzn Formalin Time 1 Parathyroid Gland SURGICAL PATHOLOGY STAT Sarah Dickerson MD [[id number]] Sarah Dickerson MD 03/21/24 0847 Yes Description: right superior parathyroid 2 Parathyroid Gland SURGICAL PATHOLOGY STAT Sarah Dickerson MD [[id number]] Sarah Dickerson MD 03/21/24 0938 Yes Description: possible right inferior parathyroid 3 Parathyroid Gland SURGICAL PATHOLOGY STAT Sarah Dickerson MD [[id number]] Sarah Dickerson MD 03/21/24 0951 Yes Description: left superior parathyroid 4 Neck SURGICAL PATHOLOGY Sarah Dickerson MD [[id number]] Sarah Dickerson MD 03/21/24 1002 No Description: central neck contents 5 Neck SURGICAL PATHOLOGY STAT Sarah Dickerson MD [[id number]] Sarah Dickerson MD 03/21/24 1023 Yes Description: possible right inferior adenoma 6 Parathyroid Gland SURGICAL PATHOLOGY STAT Sarah Dickerson MD [[id number]] Sarah Dickerson MD 03/21/24 1025 Yes Description: possible portion of left inferior parathyroid INDICATIONS & HISTORY: This is a 53 year old year old female with history of primary hyperparathyroidism. She presents today for scheduled surgery. DESCRIPTION OF OPERATION: A timeout was held and the patient was identified and the procedure verified. With the patient in the supine position and their neck extended. General anesthesia was induced via an orally placed endotracheal tube with nerve integrity monitor leads. The positioning of the endotracheal tube was verified after positioning with a GlideScope. Bilateral lower extremity sequential compression device stockings were placed. Patient's neck was extended. Patient was prepped and draped in the usual fashion for anterior neck surgery. A preoperative blood draw was performed via peripheral blood draw by Anesthesiology. This returned via rapid parathyroid hormone testing as 225 pg/mL A low Ganga incision measuring ~4 cm in length was marked andsubsequently injected with 1% lidocaine with 1:100,000 epinephrine. After allowing the local to take effect incision was made with a cold knife and the incision deepened through the platysma using monopolar electrocautery. Superior and inferior subplatysmal flaps were then carefully elevated. The mi dline raphe was divided with electrocautery and extended superiorly and inferiorly using the harmonic scalpel. Dissection began on the right, as this was the side localized on pre-operative imaging. The right sternohyoid muscle was elevated off of the sternothyroid muscle and retracted laterally. The right sternothyroid muscle was identified and elevated off of the thyroid capsule and left intact. The strap muscles were then retracted laterally. This exposed a normal appearing right thyroid lobe. The inferior pole of the right thyroid lobe was then carefully dissected. Using blunt dissection,an approximately 1 cm mass was encountered and further delineated adjacent to the right superior pole. The suspicious mass was carefully dissected free and removed intact. The gland was then sent forfrozen section and returned as parathyroid tissue. A 10 minute post-excision PTH was sent for rapidPTH testing and came back as 259 pg/mL. Thus, further exploration was warranted. Dissection then continued on the left. The left sternohyoid muscle was elevated off of the sternothyroid muscle and retracted laterally. The left sternothyroid muscle was identified and elevated off of the thyroid capsule and left intact. The strap muscles were then retracted laterally. This exposed a normal appearing left thyroid lobe. The inferior pole of the left thyroid lobe was then carefully dissected. Using blunt dissection, an approximately 1 cm mass was encountered and further delineated adjacent to the left superior pole. The suspicious mass was carefully dissected free and removed intact. The gland was then sent for frozen section and returned as parathyroid tissue. A [address]-excision PTH was sent for rapid PTH testing and came back as 251 pg/mL. Thus, further exploration was warranted. Bilateral inferior parathyroid glands were identified. The right inferior parathyroid gland was grossly more abnormal appearing. The right inferior parathyroid gland was excised and sent for frozen section, which was reported as hypercellular parathyroid tissue. The left inferior parathyroid was sampled and confirmed to be parathyroid tissue, the least hypercellular of all four glands. Thus, the remaining portion of the left inferior parathyroid gland was left in-vivo. Bilateralrecurrent laryngeal nerves were identified early in the case and protected throughout. At the conclusion, the recurrent laryngeal nerve stimulated strongly at the conclusion of the case. A 10 minute post-excision PTH was sent for rapid PTH testing and came back as 43 pg/mL. Satisfied that the responsible parathyroid gland had been removed, closure was begun. The wound was irrigated and hemostasis was assured with a Valsalva manuever. There was no significant bleeding, and surgicel was applied to the posterior aspect of the left and right thyroid lobe. The incision was then closedin a multilayered fashion using 3-0 Vicryl to re-approximate the midline raphe, platysma and subcutaneous tissue. Skin closure with surgical glue and flesh colored Steri-Strip was then placed. All counts were reported by nursing as being correct. The patient was allowed to emerge from anesthesia and taken to the Post Anesthesia Care Unit in stable condition. DISPOSITION: The patient was transferred to the Post-Anesthesia Care Unit. APPARENT INTRAOPERATIVE COMPLICATIONS: None PATIENT CONDITION: Stable ATTESTATION: Dr. Dickerson was present for the carrera portions of the procedure. Brennan Tijerina DO Resident Physician Otolaryngology -Head & Neck Surgery [address] [id number] cc: Professional Reimbursement and Compliance Cosigned by Sarah Dickerson MD at 03/21/2024 3:57 PM EST documented in this encounter Miscellaneous Notes * Progress Notes - Post-Op Global - Bruna Samuels MD - 03/22/2024 8:57 AM EST PROGRESS NOTE - THYROID / PARATHYROID POST OP - Otolaryngology [address] [address] Name: Regina Purecll Location: PACU EXTEND [facility] Date: 03/22/2024 Time: 8:57 AM 53 year old female with a history of primary hyperparathyroidism now s/p parathyroid exploration with 3.5 gland excision on 03/21/2024. SUBJECTIVE: Overnight, patient reported 9/10 throat pain and swelling at the incision site. She was note found to have fluctuance, dyspnea, dysphagia, or voice changes. This morning, patient reports some persistent throat pain, but no difficulty breathing. She would like to go home. OBJECTIVE: Most Recent Vital Signs: BP: 128 mmHg/72 mmHg (03/22/24 0800) Pulse: 62 (03/22/24 0800) Resp: 16 (03/22/24 08) Temp: 36.72 C (03/22/24799) Temp Summary: Temp Min: 36 C (96.8 F) Max: 36.7 C (98.1 F) SpO2: 90 % (03/22/24799) O2 flow rate: 0 L/MIN (03/21/242029) Supplemental O2 Delivery: Room Air, None (03/22/24799) Vital Signs Last 24 Hours: Systolic BP: Most Recent Systolic BP Av.7 mmHg Min: 122 mmHg Max: 192 mmHg Temperature: Most Recent Temperature Av.3 C Min: 36 C Max: 36.72 C Pulse: Pulse Av.9 Min: 58 Max: 98 Respirations: Resp Av.8 Min: 10 Max: 25 SpO2: SpO2 Av.7 % Min: 89 % Max: 97 % PHYSICAL EXAMINATION: Awake, uncomfortable Lying in bed Saturating well on room air Anterior neck incision c/d/I without edema or drainage Some bruising around incision LABS: Post-op PTH 10 Lab Results Component Value Date/Time CALCIUM - [facility] 9.6 03/22/2024 06:32 AM CALCIUM - [facility] 10.1 03/21/2024 11:25 AM CALCIUM - [facility] 11.2 (H) 03/08/2024 12:30 PM CALCIUM - [facility] 11.0 (H) 02/02/2024 03:26 PM CALCIUM - [facility] 11.5 (H) 01/20/2024 10:00 AM CALCIUM - [facility] 9.9 05/08/2006 11:07 AM CALCIUM - [facility] 9.7 12/19/1999 09:17 PM CALCIUM, 24 HOUR URINE - [facility] 0.24 02/02/2024 08:14 AM CALCIUM, 24 UR - [facility] 8.5 02/02/2024 08:14 AM CALCIUM, IONIZED - [facility] 1.55 (H) 03/08/2024 12:30 PM CALCIUM, IONIZED - [facility] 1.45 (H) 02/02/2024 03:26 PM CALCIUM, IONIZED - [facility] 1.53 (H) 01/20/2024 10:00 AM IMPRESSION and PLAN: 53 year old female with a history of primary hyperparathyroidism now s/p parathyroid exploration with 3.5 gland excision on 03/21/2024. She had some throat pain overnight which improved. Calcium level is WNL today. - Pain control - Tums 1500 tid - Rocaltrol 0.25 mcg bid - Trend calcium - Regular diet - mIVF, saline Sadi when good PO intake - INSURANCE PRODUCER meds - discharge today Patient to be discussed with Dr. Dickerson. Bruna Samuels MD Otolaryngology - Head and Neck Surgery, Resident [facility]-[address] [address] SORU/OUTPATIENT SURGERY DISCHARGE SUMMARY NOTE Name: Regina Purcell Location: [facility] Date: 03/22/2024 Time: 8:57 AM Date of Procedure: 03/21/2024 Surgery Date: 03/21/2024 Procedure:Procedure(s): PARATHYROIDECTOMY Complications: None Surgeon: Surgeon(s): Sarah Dickerson MD Desiato, Vincent M, DO Preoperative Diagnosis: Pre-Op Diagnosis Codes: * Hyperparathyroidism, primary (HCC) [E21.0] Postoperative Diagnosis: Post-Op Diagnosis Codes: * Hyperparathyroidism, primary (HCC) [E21.0] Reason for observation: Close observation of surgical wound site and airway Diet:Resume previous diet. No restrictions. Activity:See discharge instructions below. Condition: stable Follow up: 1-2 weeks Discharge instructions: Discharge Date: 03/21/[address] Dickerson of the department of ENT at [phone] during business hours for any questions or test results. For after-hours emergencies call [phone] and have your doctor paged. The information below provides you with the instructions and the list of medications you need to betaking following discharge from the hospital. If you have any questions, please ask before leaving.Please carry this letter with you when you see your doctor in the clinic. If you have questions, you can reach us at the numbers above. Diet: Start with clear liquids (jello, tea, apple juice), avoid dairy products (milk, cheese, pudding, ice cream) and fried, greasy foods. Advance to unrestricted diet as tolerated. If nausea should occur, have clear liquids only until soft foods can be tolerated. Activity: A responsible adult must be with the patient for 24 hours after surgery. Rest today and tomorrow, and then increase activity as tolerated. No strenuous activity for 2 weeks. Driving: n/a. Date you may return to work or school: One week Follow up as scheduled. Special Instructions: Post-Op Instructions - Thyroidectomy/Parathyroidectomy Contact our clinic at the number listed above for any of the following concerns: Bleeding in Your Neck- Some bruising is normal but you should not have rapid or excess bruising andthis may be owing to bleeding in your neck. If this is severe or you are panicked owing to trouble breathing, sudden swelling in your throat, or are unable to swallow, call 911 immediately. Low Calcium- If you develop numbness and tingling in your face, lips, fingertips, or toes take two additional doses of calcium carbonate (TUMS). The symptoms should go away in 15 to 30 minutes. If the symptoms persist, at 30 minutes you can repeat this. If the symptoms do still do not go away, callthe ENT clinic. Infection- If you have a temperature above 100.4F by mouth for 2 readings taken 4 hours apart, increased redness and/or warmth at the incision site, puslike drainage, or pain not relieved by pain pills, there may be an infection in your neck. Please call your the ENT clinic. Care for the Surgical Site You may shower, but keep neck area dry by using a washcloth to cover the incision. If it gets damp,pat dry with a clean towel. Do NOT apply any ointment or lotion to the incision. Do NOT remove the surgical tape covering your incision. You will be provided with instructions on how to remove the tape gradually after your follow up appointment. After examination of this patient, I have determined he is ready for discharge to home when the patient meets criteria. Discharge instructions were given to the patient. Cosigned by Sarah Dickerson MD at 03/22/2024 10:04 AM EST * Care Plan - Shikha Jacobsen RN - 03/22/2024 7:09 AM EST Clinical Goal(s): pt,s pain discomfort will be mangable (03/22/24 0100) Possible barriers to meeting goal(s)/advancing plan of care: Surgical pain, sore throat from intubation Stability of the patient: Moderately stable - low risk of patient condition declining or worsening Summary regarding today's goal(s): Met: Pt c/o moderate to severe pain tolerating level Recommendations: supplement with ice chips ice pack and cough drops. * Communication - Dottie Montana MD - 03/21/2024 11:06 PM EST BRIEF ENT COMMUNICATION: Notified by patient's nurse, Shikha Hernández RN, that the patient has been experiencing 9/10 throat paindespite tylenol and tramadol. She also reports of some swelling at the incision site. Per the nurse, the site appears unchanged at this time compared to how it appeared several hours ago. I saw and evaluated the patient at bedside. She reports mild improvement in pain since some time has passed since she was given the above medications. Denies dyspnea, dysphagia, or voice changes. Swallowing is a painful, which is unchanged since the procedure. The incision is mildly bruised with expected postoperative edema. There is no fluctuance. She is resting comfortably in no distress. We will monitor the incision for now and the patient and her nurse will inform me if there are any changes (worsening edema, bruising, pain, new hoarseness, new dyspnea). She will continue with Tramadol and Tylenol as ordered. We will hold off on IV medications for pain at this time. Dottie Montana MD 03/21/2024 11:50 PM Cosigned by Crystal Jeffrey MD at 03/22/2024 8:45 AM EST * Progress Notes - Post-Op Beni - Kobi Tijerina DO - 03/21/2024 3:41 PM EST PROGRESS NOTE - THYROID / PARATHYROID POST OP - Otolaryngology [facility]-[address] [address] Name: Regina Purcell Location: PACU [address] Date: 03/21/2024 Time: 3:41 PM 53 year old female with a history of primary hyperparathyroidism now s/p parathyroid exploration with 3.5 gland excision on 03/21/2024. SUBJECTIVE: PATY since surgery Pain well-controlled Tolerating PO Denies paresthesias of fingers, toes, or lips. OBJECTIVE: Most Recent Vital Signs: BP: 138 mmHg/76 mmHg (03/21/24 1500) Pulse: 73 (03/21/24 1500) Resp: 16 (03/21/24 1500) Temp: 36.28 C (03/21/24 1200) Temp Summary: Temp Min: 36 C (96.8 F) Max: 36.4 C (97.5 F) SpO2: 97 % (03/21/24 1500) O2 flow rate: 2 L/MIN (03/21/24 1531) Supplemental O2 Delivery: Nasal Cannula (03/21/24 153) Vital Signs Last 24 Hours: Systolic BP: Most Recent Systolic BP Av.8 mmHg Min: 125 mmHg Max: 192 mmHg Temperature: Most Recent Temperature Av.2 C Min: 36 C Max: 36.39 C Pulse: Pulse Av.4 Min: 73 Max: 98 Respirations: Resp Av.2 Min: 10 Max: 25 SpO2: SpO2 Av % Min: 90 % Max: 98 % PHYSICAL EXAMINATION: General: NAD, no noisy breathing, voice strong Neck: steri-strips over incision with no edema, erythema, or drainage. LABS: Post-op PTH 10 Lab Results Component Value Date/Time CALCIUM - [facility] 10.1 03/21/2024 11:25 AM CALCIUM - [facility] 11.2 (H) 03/08/2024 12:30 PM CALCIUM - [facility] 11.0 (H) 02/02/2024 03:26 PM CALCIUM - [facility] 11.5 (H) 01/20/2024 10:00 AM CALCIUM - [facility] 12.0 (H) 01/14/2024 11:45 AM CALCIUM - [facility] 9.9 05/08/2006 11:07 AM CALCIUM - [facility] 9.7 12/19/1999 09:17 PM CALCIUM, 24 HOUR URINE - [facility] 0.24 02/02/2024 08:14 AM CALCIUM, 24 UR - [facility] 8.5 02/02/2024 08:14 AM CALCIUM, IONIZED - [facility] 1.55 (H) 03/08/2024 12:30 PM CALCIUM, IONIZED - [facility] 1.45 (H) 02/02/2024 03:26 PM CALCIUM, IONIZED - [facility] 1.53 (H) 01/20/2024 10:00 AM IMPRESSION and PLAN: 53 year old female with a history of primary hyperparathyroidism now s/p parathyroid exploration with 3.5 gland excision on 03/21/2024. Doing well post-operatively. - Pain control - Tums 1500 tid - Rocaltrol 0.25 mcg bid - Trend calcium - Regular diet - mIVF, saline Sadi when good PO intake - INSURANCE PRODUCER meds - Anticipate d/c tomorrow morning if no issues overnight and calcium stable Patient to be discussed with Dr. Dickerson. Kobi Tijerina DO Otolaryngology - Head and Neck Surgery Chief Resident 03/21/2024 3:42 PM Cosigned by Sarah Dickerson MD at 03/22/2024 8:47 AM EST documented in this encounter Plan of Treatment Upcoming Encounters Date Type Department Care Team (Late st Contact Info) Description 07/04/2024 12:00 PM EST Office Visit [facility] [address] [place] [phone] Ada Waterman PA-C [address] [facility] [place] [phone] Pending Results Name Type Priority Associated Diagnoses Date /Time SURGICAL PATHOLOGY Pathology STAT Hyperparathyroidism, primary (HCC) 03/21/2024 8:47 AM EST Scheduled Orders Name Type Priority Associated Diagnoses Order Schedule GLUCOSE METER, POINT OF CARE (COMMUNICATION ORDER) Point of Care Testing STAT Perform Now for 1 Occurrences starting 03/21/2024 until 03/21/2024 SURGICAL PATHOLOGY Pathology Routine Hyperparathyroidism , primary (HCC) Release Upon Ordering for 1 Occurrences starting 03/21/2024, 1 completed Health Maintenance Due Date Last Done Comments DISCUSS TOBACCO CESSATION (REFER TO SMARTSET #[id number]) 1968 Cologuard 2013 Colonoscopy 2013 Fecal Occult [...] Not on filedocumented as of this encounter Procedures Procedure Name Priority Date/Time Associated Diagnosis Comments GLUCOSE METER, POINT OF CARE [facility] 03/22/2024 8:09 AM EST CALCIUM STAT 03/22/2024 6:32 AM EST GLUCOSE METER, POINT OF CARE [place] 03/21/2024 9:54 PM EST GLUCOSE METER, POINT OF CARE [place] 03/21/2024 4:17 PM EST GLUCOSE METER, POINT OF CARE [place] 03/21/2024 11:46 AM EST PTH STAT 03/21/2024 11:25 AM EST CALCIUM STAT 03/21/2024 11:25 AM EST PTH, INTRAOPERATIVE ([facility] ONLY) STAT 03/21/2024 10:33 AM EST Hyperparathyroidis m, primary (HCC) GLUCOSE METER, POINT OF CARE [place] 03/21/2024 10:20 AM EST PTH, INTRAOPERATIVE ([facility] ONLY) Routine 03/21/2024 10:01 AM EST Hyperparathyroidis m, primary (HCC) GLUCOSE METER, POINT OF CARE [place] 03/21/2024 9:47 AM EST PTH, INTRAOPERATIVE ([facility] ONLY) Routine 03/21/2024 9:17 AM EST Hyperparathyroidis m, primary (HCC) PTH, INTRAOPERATIVE ([facility] ONLY) Routine 03/21/2024 8:57 AM EST Hyperparathyroidis m, primary (HCC) PTH, INTRAOPERATIVE ([facility] ONLY) Routine 03/21/2024 8:06 AM EST Hyperparathyroidis m, primary (HCC) EXPLORE PARATHYROID GLANDS 03/21/2024 7:00 AM EST Hyperparathyroidis m, primary (HCC) GLUCOSE METER, POINT OF CARE [place] 03/21/2024 6:27 AM EST documented in this encounter Results * (ABNORMAL) GLUCOSE METER, POINT OF CARE (03/22/2024 8:09 AM EST) GLUCOSE - POCT 155(H) 70 - 120 mg/dL 03/22/2024 8:19 AM EST [facility] [address] Blood Whole blood specimen / Unknown 03/22/2024 8:09 AM EST 03/22/2024 8:19 AM EST Sarah Dickerson MD LAB POINT OF CAR E TEST DOCKED DEVICE UNSOLICITED RESULTS Final Result [facility] [address] [place] [address] * CALCIUM (03/22/2024 6:32 AM EST) CALCIUM 9.6 8.4 - 10.2 mg/dL 03/22/2024 7:03 AM EST LABORATORY [facility] Blood Venous blood specimen / Unknown Venipuncture / Unknown 03/22/2024 6:32 AM EST 03/22/2024 6:41 AM EST Vincent M Desiato DO LAB BLOOD ORDERABLES Final Result LABORATORY [facility] [address] [place] [address] * (ABNORMAL) GLUCOSE METER, POINT OF CARE (03/21/2024 9:54 PM EST) GLUCOSE - POCT 184(H) 70 - 120 mg/dL 03/21/2024 10:00 PM EST [employer] Blood Whole blood specimen / Unknown 03/21/2024 9:54 PM EST 03/21/2024 10:00 PM EST us Sarah Dickerson MD LAB POINT OF CAR E TEST DOCKED DEVICE UNSOLICITED RESULTS Final Result Performing Organization Address City/[facility]/ZIP Co de Phone Number [facility] [address] [place] [address] * (ABNORMAL) GLUCOSE METER, POINT OF CARE (03/21/2024 4:17 PM EST) GLUCOSE - POCT 229(H) 70 - 120 mg/dL 03/21/2024 4:20 PM EST [employer] Blood Whole blood specimen / Unknown 03/21/2024 4:17 PM EST 03/21/2024 4:20 PM EST us Sarah Dickerson MD LAB POINT OF CAR E TEST DOCKED DEVICE UNSOLICITED RESULTS Final Result [facility] [address] [place] [address] * (ABNORMAL) GLUCOSE METER, POINT OF CARE (03/21/2024 11:46 AM EST) GLUCOSE - POCT 199(H) 70 - 120 mg/dL 03/21/2024 11:56 AM EST [employer] Blood Whole blood specimen / Unknown 03/21/2024 11:46 AM EST 03/21/2024 11:56 AM EST us Sarah Dickerson MD LAB POINT OF CAR E TEST DOCKED DEVICE UNSOLICITED RESULTS Final Result Performing Organization Address City/[facility]/ZIP Co de Phone Number [facility] [address] [place] [address] * CALCIUM (03/21/2024 11:25 AM EST) CALCIUM 10.1 8.4 - 10.2 mg/dL 03/21/2024 12:13 PM EST LAB[facility]ATORY [facility] Blood Venous blood specimen / Unknown Venipuncture / Unknown 03/21/2024 11:25 AM EST 03/21/2024 11:53 AM EST Kobi Tijerina DO LAB BLOOD ORDERABLES Final Result Performing Organization Address City/[facility]/ZIP Co de Phone Number LABORATORY [facility] [address] [place] [address] * (ABNORMAL) PTH (03/21/2024 11:25 AM EST) PTH 10(L) 15 - 65 pg/mL 03/21/2024 12:48 PM EST LABORATORY [facility] Blood Venous blood specimen / Unknown Venipuncture / Unknown 03/21/2024 11:25 AM EST 03/21/2024 11:53 AM EST Kobi Tijerina DO LAB BLOOD ORDERABLES Final Result Performing Organization Address City/[facility]/ZIP Co de Phone Number LABORATORY [facility] [address] [place] [address] * PTH, INTRAOPERATIVE ([facility] ONLY) (03/21/2024 10:33 AM EST) PTH, Intraoperative 43 10 - 65 pg/mL 03/21/2024 10:46 AM EST LAB[facility]ATORY [facility] Blood Venous blood specimen / Unknown 03/21/2024 10:33 AM EST 03/21/2024 10:37 AM EST Sarah Dickerson MD LAB BLOOD ORDERABLES Fin al Result Performing Organization Address City/[facility]/ZIP Co de Phone Number LABORATORY [facility] [address] [place] [address] * (ABNORMAL) GLUCOSE METER, POINT OF CARE (03/21/2024 10:20 AM EST) GLUCOSE - POCT 195(H) 70 - 120 mg/dL 03/21/2024 11:08 AM EST [employer] SystemsHE[facility] LITTLETONAdvanced [employer] Analytics Blood Whole blood specimen / Unknown 03/21/2024 10:20 AM EST 03/21/2024 11:08 AM EST us Sarah Dickerson MD LAB POINT OF CAR E TEST DOCKED DEVICE UNSOLICITED RESULTS Final Result Performing Organization Address [facility] Co de Phone Number [facility] [address] [place] [address] * (ABNORMAL) PTH, INTRAOPERATIVE ([facility] ONLY) (03/21/2024 10:01 AM EST) PTH, Intraoperative 251(H) 10 - 65 pg/mL 03/21/2024 10:21 AM EST LABORATORY [facility] Blood Venous blood specimen / Unknown 03/21/2024 10:01 AM EST 03/21/2024 10:07 AM EST us Sarah Dickerson MD LAB BLOOD ORDERABLES Fin al Result Performing Organization Address City/[facility]/ZIP Co de Phone Number LABORATORY [facility] [address] [place] [address] * (ABNORMAL) GLUCOSE METER, POINT OF CARE (03/21/2024 9:47 AM EST) GLUCOSE - POCT 205(H) 70 - 120 mg/dL 03/22/2024 7:11 AM EST [employer] [facility] [employer] Blood Whole blood specimen / Unknown 03/21/2024 9:47 AM EST 03/22/2024 7:11 AM EST us Sarah Dickerson MD LAB POINT OF CAR E TEST DOCKED DEVICE UNSOLICITED RESULTS Final Result [facility] [address] [place] [address] * (ABNORMAL) PTH, INTRAOPERATIVE ([facility] ONLY) (03/21/2024 9:17 AM EST) PTH, Intraoperative 234(H) 10 - 65 pg/mL 03/21/2024 9:58 AM EST LAB[facility]ORY [facility] Blood Venous blood specimen / Unknown 03/21/2024 9:17 AM EST 03/21/2024 9:23 AM EST us Sarah Dickerson MD LAB BLOOD ORDERABLES Fin al Result LABORATORY [facility] [address] [place] [address] * (ABNORMAL) PTH, INTRAOPERATIVE ([facility] ONLY) (03/21/2024 8:57 AM EST) PTH, Intraoperative 259(H) 10 - 65 pg/mL 03/21/2024 9:14 AM EST [facility] Blood Venous blood specimen / Unknown 03/21/2024 8:57 AM EST 03/21/2024 9:03 AM EST us Sarah Dickerson MD LAB BLOOD ORDERABLES Fin al Result LABORATORY [facility] [address] [place] [address] * (ABNORMAL) PTH, INTRAOPERATIVE ([facility] ONLY) (03/21/2024 8:06 AM EST) PTH, Intraoperative 225(H) 10 - 65 pg/mL 03/21/2024 8:19 AM EST LAB[facility]ORY [facility] Blood Venous blood specimen / Unknown 03/21/2024 8:06 AM EST 03/21/2024 8:11 AM EST us Sarah Dickerson MD LAB BLOOD ORDERABLES Fin al Result LABORATORY [facility] [address] [place] [address] * (ABNORMAL) GLUCOSE METER, POINT OF CARE (03/21/2024 6:27 AM EST) GLUCOSE - POCT 150(H) 70 - 120 mg/dL 03/21/2024 6:28 AM EST [employer] [employer] [facility] Blood Whole blood specimen / Unknown 03/21/2024 6:27 AM EST 03/21/2024 6:28 AM EST [facility] Awais Dickerson MD LAB POINT OF CAR E TEST DOCKED DEVICE UNSOLICITED RESULTS Final Result Performing Organization Address [facility] Co de Phone Number [facility] [address] [place] [address] documented in this encounter Visit Diagnoses Diagnosis Hyperparathyroidism, primary (HCC)- Primary Primary hyperparathyroidism documented in this encounter Administered Medications Inactive Administered Medications - up to 3 most recent administrations Medication Order MAR Action Action Date Dose Rate Site Acetaminophen (Tylenol) tab 975 mg 975 mg, Oral, Q6H PRN Pain, Mild, Fever >38C(100.5F), Headache, Starting on Thu03/21/24 at 1138, Until Thu03/22/24 at 1420, For 5 days, Maximum 4 g acetaminophen/day. Avoid in patients with severe hepatic impairment or severe active liver disease. Use for 5 days., Post-op Given 03/22/2024 9:48 AM EST 975 mg Given 03/22/2024 3:55 AM EST 975 mg Given 03/21/2024 7:30 PM EST 975 mg albuterol-ipratropium (Duoneb) inhalation solution 3 mL 3 mL, Nebulizer, RESPQID, First dose on Thu03/21/24 at 0800, Until Discontinued, 3 mL = 0.5 mg ipratropium/ 2.5 mg albuterol, Pre-Op Given 03/21/2024 4:59 PM EST 3 mL Given 03/21/2024 7:10 AM EST 3 mL Aprepitant (Emend) cap 40 mg 40 mg, Oral, ONCE, On Thu03/21/24 at 0745, For 1 dose, Pre-Op Given 03/21/2024 7:09 AM EST 40 mg Calcitriol (Rocaltrol) cap 0.25 mcg 0.25 mcg, Oral, BID (.AM/PM), First dose on Thu03/21/24 at 2100, Until Discontinued Given 03/22/2024 9:48 AM EST 0.2 5 mcg Given 03/21/2024 10:10 PM EST 0.25 mcg calcium CARBonate (Tums E-X) tab CHEW 1,500 mg 1,500 mg, Oral, BID (NOON, 1700), First dose on Thu03/21/24 at 1215, Until Discontinued, Post-op Given 03/21/2024 12:58 PM EST 1,500 mg calcium CARBonate (Tums E-X) tab CHEW 1,500 mg 1,500 mg, Oral, TID 06;;18, First dose (after last modification) on Thu03/21/24 at 1800, Until Discontinued, Post-op Given 03/22/2024 6:14 AM EST 1,500 m g Given 03/21/2024 4:12 PM EST 1,500 mg dextrose 50% inj 25 mL 25 mL, IV Push, PRN Hypoglycemia, Other, For blood glucose 54 - 69 mg/dL or 70 - 100 mg/dL with symptoms AND patient is unresponsive, NPO, OR unable to swallow, Starting on Thu03/21/24 at 1650, Until Thu03/22/24 at 1420, Administer IV. Recheck blood glucose after 15 minutes. Notify provider. dextrose 50% inj 50 mL 50 mL, IV Push, PRN Hypoglycemia, Other, For blood glucose below 54 mg/dL AND patient unresponsive, NPO, OR unable to swallow, Starting on Thu03/21/24 at 1650, Until Thu03/22/24 at 1420, Administer IV. Recheck blood glucose in 15 minutes. Notify provider. fentaNYL (PF) inj 50 mcg 50 mcg, IV Push, Q5 MIN PRN Pain, Severe, Starting on Thu03/21/24 at 0902, Until Thu03/21/24 at 1135, For 2 doses, Administer up to a total of 100mcg. Administer only postop in PACU When given IV Push its recommended that the dose be given over 3 to 5 minutes., PACU Given 03/21/2024 11:35 AM EST 50 mcg Given 03/21/2024 11:15 AM EST 50 mcg Furosemide (Lasix) tab 20 mg 20 mg, Oral, Daily(AM), First dose on Thu03/21/24 at 1215, Until Discontinued Given 03/21/2024 12:57 PM EST 20 mg glipiZIDE (Glucotrol) tab 5 mg 5 mg, Oral, BID (0730,1630), First dose on Thu03/21/24 at 1630, Until Discontinued Given 03/22/2024 9:48 AM EST 5 m g Given 03/21/2024 4:12 PM EST 5 mg glucagon (Glucagen) inj 1 mg 1 mg, Intramuscular, PRN Hypoglycemia, Other, If patient is unresponsive, or NPO and has no IV access, Starting on Thu03/21/24 at 1650, Until Thu03/22/24 at 1420, NPO and no IV access with either 1) blood glucose less than 100 mg/dL and symptomatic OR 2) blood glucose less than 70 mg/dL and asymptomatic Glucose (Glutose 15) 40 % gel 15 g of glucose 15 g of glucose, Oral, PRN Hypoglycemia (low sugar), Other, For blood glucose 54 - 69 mg/dL or 70 - 100 mg/dL with symptoms AND patient alert WITH difficulty chewing/swallowing, Starting on Thu03/21/24 at 1650, Until Thu03/22/24 at 1420, Administer gel. Recheck blood glucose after 15 minutes. Notify provider. 37.5 gram tube = 15 grams glucose = 1 each Glucose (Glutose 15) 40 % gel 30 g of glucose 30 g of glucose, Oral, PRN Hypoglycemia (low sugar), Other, For blood glucose below 54 mg/dL AND patient alert WITH difficulty chewing/swallowing, Starting on Thu03/21/24 at 1650, Until Thu03/22/24 at 1420, Administer gel. Recheck blood glucose after 15 minutes. Notify provider. 37.5 gram tube = 15 grams glucose = 1 each glucose chew tab 16 g 16 g, Oral, PRN Hypoglycemia, Other, For blood glucose 54 - 69 mg/dL or 70 - 100 mg/dL with symptoms and patient alert without difficulty chewing/swallowing., Starting on Thu03/21/24 at 1650, Until Thu03/22/24 at 1420 HYDROmorphone (Dilaudid) inj 0.5 mg 0.5 mg, IV Push, Q15 MIN PRN Pain, Severe, Starting on Thu03/21/24 at 1140, Until Thu03/21/24 at 1206, For 2 doses, Administer only postop in PACU. Hold for respiratory rate less than 12. Administer up to a total of 1mg., PACU Given 03/21/2024 12:06 PM EST 0.5 mg Given 03/21/2024 11:48 AM EST 0.5 mg insulin aspart (NovoLOG) inj Subcutaneous, W/MEALS AND HS, First dose on Thu03/21/24 at 1730, Until Discontinued, MEDIUM DOSE, (Usual starting dose) Insulin sensitivity factor (ISF) = 40 Serum Blood Sugar less than 70 mg/dl (obtain STAT lab blood sugar and notify provider); 151 - 190 mg/dl (1 units); 191 - 230 mg/dl (2 units); 231 - 270 mg/dl (3 units); 271 - 310 mg/dl (4 units); 311 - 350 mg/dl (5 units); 351 - 390 mg/dl (6 units); 391 mg/dl and greater (call provider), Correctional insulin may be given if the patient is NPO. Given 03/22/2024 9:48 AM EST 1 Units Abdomen Right Lower Given 03/21/2024 10:12 PM EST 1 Units A rm Left Upper Given 03/21/2024 5:06 PM EST 2 Units Ar m Right Upper Isolyte-S pH 7.4 infusion Intravenous, at 25 mL/hr, All Patients EXCEPT Dialysis patients Plasma-LYTE 148, isolyte-S, and isolyte-S pH 7.4 are considered equivalent - including for MAR barcode scanning., CONTINUOUS, Starting on Thu03/21/24 at 0645, Until Thu03/22/24 at 1420, Pre-Op New Bag 03/21/2024 6:29 AM EST 25 mL/ hr 25 mL/hr Levothyroxine Sodium (Levoxyl) tab 112 mcg 112 mcg, Oral, [id number], First dose on Thu03/22/24 at 0630, Until Discontinued Given 03/22/2024 6:30 AM EST 112 mcg lidocaine 1 % inj 1 mg 1 mg (0.1 mL), Percutaneous, ONCE PRN Other, Difficult IV starts requiring > 20 guage catheter and/ or by patient request, Starting on Thu03/21/24 at 0602, Until Thu03/21/24 at 0629, For 1 dose, Pre-Op Given 03/21/2024 6:29 AM EST 1 mg Lisinopril (Prinivil) tab 2.5 mg 2.5 mg, Oral, Daily(AM), First dose on Thu03/21/24 at 1215, Until Discontinued Given 03/22/2024 9:48 AM EST 2.5 mg Given 03/21/2024 12:57 PM EST 2.5 mg Menthol (Haworth) cough drop 1 Lozenge 1 Lozenge, Oral, PRN Dry Mouth, Sore throat, Starting on Thu03/22/24 at 0956, Until Thu03/22/24 at 1420 ondansetron (Zofran) tab 4 mg 4 mg, Oral, Q8H PRN Nausea, Vomiting, Starting on Thu03/21/24 at 1931, Until Thu03/22/24 at 1420 Given 03/22/2024 3:58 AM EST 4 mg Given 03/21/2024 8:03 PM EST 4 mg oxyCODONE (Oxy IR) tab 5 mg 5 mg, Oral, ONCE, On Thu03/21/24 at 1600, For 1 dose Given 03/21/2024 3:31 PM EST 5 mg phenol (chlorASEPTIC) spray 3 Tampa 3 Tampa, Oral, Q4H PRN Sore throat, Starting on Thu03/21/24 at 1931, Until Thu03/22/24 at 1420, See nursing care plan promethazine (Phenergan) tab 25 mg 25 mg, Oral, ONCE, On Thu03/21/24 at 0800, For 1 dose, Pre-Op Given 03/21/2024 7:29 AM EST 25 mg Simvastatin (Zocor) tab 20 mg 20 mg, Oral, HS, First dose on Thu03/21/24 at 2200, Until Discontinued Given 03/21/2024 10:10 PM EST 20 mg traMADol (Ultram) tab 50 mg 50 mg, Oral, Q6H PRN Pain, Moderate, Pain, Severe, Starting on Thu03/21/24 at 1353, Until Thu03/22/24 at 1420 Given 03/22/2024 3:57 AM EST 50 mg Given 03/21/2024 8:01 PM EST 50 mg Given 03/21/2024 2:02 PM EST 50 mg documented in this encounter Active and Recently Administered Medications Times are shown in EST. Scheduled Medication Order 03/20/2024 03/21/2024 03/22/2024 albuterol-ipratropium (Duoneb) inhalation solution 3 mL (CANCELED) 3 mL, Nebulizer, RESPQID, First dose on Thu03/21/24 at 0800, Until Discontinued, 3 mL = 0.5 mg ipratropium/ 2.5 mg albuterol, Pre-Op 0710 (Given - Provider: Linda Persaud RN)1200 (OR/Procedure - Provider: Yovani Sahu, CANDELARIA)1659 (Given - Provider: Yovani Sahu RN) Aprepitant (Emend) cap 40 mg (COMPLETED) 40 mg, Oral, ONCE, On Thu03/21/24 at 0745, For 1 dose, Pre-Op 0709 (Given - Provider: Linda Persaud RN) Calcitriol (Rocaltrol) cap 0.25 mcg 0.25 mcg, Oral, BID (.AM/PM), First dose on Thu03/21/24 at 2100, Until Discontinued 2210 (Given - Provider: Shikha Lozano RN) 0948 (Given - Provider: Shikha Hussein RN) calcium CARBonate (Tums E-X) tab CHEW 1,500 mg (CANCELED) 1,500 mg, Oral, BID (NOON, 1700), First dose on Thu03/21/24 at 1215, Until Discontinued, Post-op 1258 (Given - Provider: Lisa Campa RN) calcium CARBonate (Tums E-X) tab CHEW 1,500 mg 1,500 mg, Oral, TID 06;12;18, First dose (after last modification) on Thu03/21/24 at 1800, Until Discontinued, Post-op 1612 (Given - Provider: Yovani Sahu RN) 0614 (Given - Provider: Shikha Lozano, CANDELARIA) Furosemide (Lasix) tab 20 mg 20 mg, Oral, Daily(AM), First dose on Thu03/21/24 at 1215, Until Discontinued 1257 (Given - Provider: Lisa Campa, CANDELARIA) glipiZIDE (Glucotrol) tab 5 mg 5 mg, Oral, BID (0730,1630), First dose on Thu03/21/24 at 1630, Until Discontinued 1612 (Given - Provider: Yovani Sahu RN) 0948 (Given - Provider: Shikha Hussein, CANDELARIA) insulin aspart (NovoLOG) inj Subcutaneous, W/MEALS AND HS, First dose on Thu03/21/24 at 1730, Until Discontinued, MEDIUM DOSE, (Usual starting dose) Insulin sensitivity factor (ISF) = 40 Serum Blood Sugar less than 70 mg/dl (obtain STAT lab blood sugar and notify provider); 151 - 190 mg/dl (1 units); 191 - 230 mg/dl (2 units); 231 - 270 mg/dl (3 units); 271 - 310 mg/dl (4 units); 311 - 350 mg/dl (5 units); 351 - 390 mg/dl (6 units); 391 mg/dl and greater (call provider), Correctional insulin may be given if the patient is NPO. 1706 (Given - Provider: Yovani Sahu RN)2212 (Given - Provider: Shikha Lozano, CANDELARIA) 0948 (Given - Provider: Shikha Hussein, CANDELARIA) Levothyroxine Sodium (Levoxyl) tab 112 mcg 112 mcg, Oral, [id number], First dose on Thu03/22/24 at 0630, Until Discontinued 0630 (Given - Provid er: Shikha Lozano, CANDELARIA) Lisinopril (Prinivil) tab 2.5 mg 2.5 mg, Oral, Daily(AM), First dose on Thu03/21/24 at 1215, Until Discontinued 1257 (Given - Provider: Lisa Campa, CANDELARIA) 0948 (Given - Provider: Shikha Hussein, CANDELARIA) oxyCODONE (Oxy IR) tab 5 mg (COMPLETED) 5 mg, Oral, ONCE, On Thu03/21/24 at 1600, For 1 dose 1531 (Given - Provider: Yovani Sahu RN) promethazine (Phenergan) tab 25 mg (COMPLETED) 25 mg, Oral, ONCE, On Thu03/21/24 at 0800, For 1 dose, Pre-Op 0729 (Given - Provider: Linad Persaud RN) Simvastatin (Zocor) tab 20 mg 20 mg, Oral, HS, First dose on Thu03/21/24 at 2200, Until Discontinued 2210 (Given - Provider: Shikha Lozano, CANDELARIA) Continuous Medication Order 03/20/2024 03/21/2024 03/22/2024 Isolyte-S pH 7.4 infusion Intravenous, at 25 mL/hr, All Patients EXCEPT Dialysis patients Plasma-LYTE 148, isolyte-S, and isolyte-S pH 7.4 are considered equivalent - including for MAR barcode scanning., CONTINUOUS, Starting on Thu03/21/24 at 0645, Until Thu03/22/24 at 1420, Pre-Op 0629 (New Bag - Provider: Sharmila Persaud RN)1900 (Stopped - Provider: Shikha Lozano, CANDELARIA) PRN Medication Order 03/20/2024 03/21/2024 03/22/2024 Acetaminophen (Tylenol) tab 975 mg 975 mg, Oral, Q6H PRN Pain, Mild, Fever >38C(100.5F), Headache, Starting on Thu03/21/24 at 1138, Until Thu03/22/24 at 1420, For 5 days, Maximum 4 g acetaminophen/day. Avoid in patients with severe hepatic impairment or severe active liver disease. Use for 5 days., Post-op 1349 (Given - Provider: Kerri Ceja, CANDELARIA)1930 (Given - Provider: Shikha Lozano, CANDELARIA) 0355 (Given - Provider: Shikha Lozano, CANDELARIA)0948 (Given - Provider: Shikha Hussein RN) dextrose 50% inj 25 mL 25 mL, IV Push, PRN Hypoglycemia, Other, For blood glucose 54 - 69 mg/dL or 70 - 100 mg/dL with symptoms AND patient is unresponsive, NPO, OR unable to swallow, Starting on Thu03/21/24 at 1650, Until Thu03/22/24 at 1420, Administer IV. Recheck blood glucose after 15 minutes. Notify provider. dextrose 50% inj 50 mL 50 mL, IV Push, PRN Hypoglycemia, Other, For blood glucose below 54 mg/dL AND patient unresponsive, NPO, OR unable to swallow, Starting on Thu03/21/24 at 1650, Until Thu03/22/24 at 1420, Administer IV. Recheck blood glucose in 15 minutes. Notify provider. EPINEPHrine 2 mg in sodium chloride 0.9 % 10 mL (CANCELED) ONCE PRN INTRA PROCEDURE, Starting on Thu03/21/24 at 0833, Until Thu03/21/24 at 1105, Intra-Op 0833 (Given - Provider: Kobi Tijerina, DO - Comment: prn intraop on cottonoids) fentaNYL (PF) inj 50 mcg (COMPLETED) 50 mcg, IV Push, Q5 MIN PRN Pain, Severe, Starting on Thu03/21/24 at 0902, Until Thu03/21/24 at 1135, For 2 doses, Administer up to a total of 100mcg. Administer only postop in PACU When given IV Push its recommended that the dose be given over 3 to 5 minutes., PACU 1115 (Given - Provider: Lisa Campa, CANDELARIA)1135 (Given - Provider: Lisa Campa, CANDELARIA) glucagon (Glucagen) inj 1 mg 1 mg, Intramuscular, PRN Hypoglycemia, Other, If patient is unresponsive, or NPO and has no IV access, Starting on Thu03/21/24 at 1650, Until Thu03/22/24 at 1420, NPO and no IV access with either 1) blood glucose less than 100 mg/dL and symptomatic OR 2) blood glucose less than 70 mg/dL and asymptomatic Glucose (Glutose 15) 40 % gel 15 g of glucose 15 g of glucose, Oral, PRN Hypoglycemia (low sugar), Other, For blood glucose 54 - 69 mg/dL or 70 - 100 mg/dL with symptoms AND patient alert WITH difficulty chewing/swallowing, Starting on Thu03/21/24 at 1650, Until Thu03/22/24 at 1420, Administer gel. Recheck blood glucose after 15 minutes. Notify provider. 37.5 gram tube = 15 grams glucose = 1 each Glucose (Glutose 15) 40 % gel 30 g of glucose 30 g of glucose, Oral, PRN Hypoglycemia (low sugar), Other, For blood glucose below 54 mg/dL AND patient alert WITH difficulty chewing/swallowing, Starting on Thu03/21/24 at 1650, Until Thu03/22/24 at 1420, Administer gel. Recheck blood glucose after 15 minutes. Notify provider. 37.5 gram tube = 15 grams glucose = 1 each glucose chew tab 16 g 16 g, Oral, PRN Hypoglycemia, Other, For blood glucose 54 - 69 mg/dL or 70 - 100 mg/dL with symptoms and patient alert without difficulty chewing/swallowing., Starting on Thu03/21/24 at 1650, Until Thu03/22/24 at 1420 HYDROmorphone (Dilaudid) inj 0.5 mg (COMPLETED) 0.5 mg, IV Push, Q15 MIN PRN Pain, Severe, Starting on Thu03/21/24 at 1140, Until Thu03/21/24 at 1206, For 2 doses, Administer only postop in PACU. Hold for respiratory rate less than 12. Administer up to a total of 1mg., PACU 1148 (Given - Provider: Lisa Campa, CANDELARIA)1206 (Given - Provider: Lisa Campa, CANDELARIA) lidocaine 1 % inj 1 mg (COMPLETED) 1 mg (0.1 mL), Percutaneous, ONCE PRN Other, Difficult IV starts requiring > 20 guage catheter and/ or by patient request, Starting on Thu03/21/24 at 0602, Until Thu03/21/24 at 0629, For 1 dose, Pre-Op 0629 (Given - Provider: Linda Persaud RN) Lidocaine-EPINEPHrine 1 %-[id number] inj (CANCELED) ONCE PRN INTRA PROCEDURE, Starting on Thu03/21/24 at 0801, Until Thu03/21/24 at 1105, Intra-Op 0801 (Given - Provider: Kobi Tijerina, DO - Comment: prn intraop) Menthol (Haworth) cough drop 1 Lozenge 1 Lozenge, Oral, PRN Dry Mouth, Sore throat, Starting on Thu03/22/24 at 0956, Until Thu03/22/24 at 1420 ondansetron (Zofran) tab 4 mg 4 mg, Oral, Q8H PRN Nausea, Vomiting, Starting on Thu03/21/24 at 1931, Until Thu03/22/24 at 1420 2002 (Given - Provider: Shikha Lozano RN) 035 (Given - Provider: Shikha Lozano RN) phenol (chlorASEPTIC) spray 3 Tampa 3 Tampa, Oral, Q4H PRN Sore throat, Starting on Thu03/21/24 at 1931, Until Thu03/22/24 at 1420, See nursing care plan sodium chloride IR 0.9 % irrigation (CANCELED) ONCE PRN INTRA PROCEDURE, Starting on Thu03/21/24 at 0823, Until Thu03/21/24 at 1105, Intra-Op 0823 (Given - Provider: Kobi Tijerina, DO - Comment: prn intraop) surgicel 2x3 hemostat (CANCELED) ONCE PRN INTRA PROCEDURE, Starting on Thu03/21/24 at 0851, Until Thu03/21/24 at 1105, Intra-Op 0851 (Given - Provider: Kobi Tijerina, - Comment: prn intraop)0919 (Given - Provider: Sarah Dickerson MD) traMADol (Ultram) tab 50 mg 50 mg, Oral, Q6H PRN Pain, Moderate, Pain, Severe, Starting on Thu03/21/24 at 1353, Until Thu03/22/24 at 1420 1402 (Given - Provider: Lisa Campa RN)2000 (Given - Provider: Shikha Lozano RN) 035 (Given - Provider: Shikha Lozano, CANDELARIA) documented in this encounter Advance Directives * Full Code (Latest Code Status on File) Date Activated Date Inactivated Comments 03/21/2024 11:38 AM 03/22/2024 2:20 PM This orde r reflects the patients wishes and were consensually agreed upon. Question Answer Comments Discussion of Advance Direct carito occurred with: Not Discussed due to patient's condition Care Teams Flipping Machine Operator Relationship Specialty Start Date End Date Ada Waterman PA-C [address] [facility] [place] [address] PCP - General Physician Driving School Instructor 09/02/22 documented as of this encounter
--- OUTSIDE RECORDS SUMMARY | 2024-03-26 10:15 | External Medical Summary ---
Author Name Unknown Address Unknown Organization : Laboratory Report Ordering Provider Test Date Status MIKO MCKEON 03/21/2024 11:46:48 Final Observation Date Value Abnormality Reference (Units ) Status Glucose Point of Care 03/21/2024 11:46:48 199 Above high normal 70-120 (mg/dL) Final Performing Location
--- OUTSIDE RECORDS SUMMARY | 2024-03-26 10:15 | External Medical Summary | Summary of Care ---
Author Name Unknown Organization [facility] Address [address] [facility] [place] [address] Phone [phone] Care Team Providers Care Receiving Dock Checker Name Role Phone Ada Waterman PA-C Primary Care Provider [phone] Reason for Visit * Reason Comments Outpatient Testing Encounter Details Date Type Department Care Team (Late st Contact Info) Description 03/24/2024 11:50 AM EST [facility], [facility] [address] [facility] [phone] [facility] [address] [facility] [place] [address] S/P parathyroidectomy Allergies Active Allergy Reactions Criticality Noted Date Comments Canagliflozin Other (Please comment) Low 10/08/2022 Uti, yeast Metformin Diarrhea Low 10/08/2022 Constant diarrhea Oxycodone Nausea/vomiting 03/21/2024 documented as of this encounter (statuses as of 03/24/2024) Medications OneTouch Ultra In Vitro Strip use 1 TEST STRIP to TEST three times a day before meals 09/03/19 23 Active OneTouch Delica Plus [id number] use three times a day before meals [...] Information Patient taking differently: 112 mcg Oral [id number], TAKE 1 TABLET BY MOUTH ONCE DAILY [...] Rizatriptan Benzoate 10 MG Oral Tablet Disintegrating (Maxalt-[employer] SYSTEM OPERATOR)Indica tions:Intractable paroxysmal hemicrania, unspecified chronicity pattern Take [...] 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 Not on file [...] 03/30/2024 10:00 AM EST Office Visit Otolaryngology [facility] [address] [place] [address] Spencer Dean, DO [address] [place] [id number] 07/04/2024 12:00 PM EST Office Visit [facility] [address] [facility] [place] [phone] Ada Waterman PA-C [address] [facility] [place] [facility] [place] [phone] Pending Results Name Type Priority Associated Diagnoses Date /Time CALCIUM Lab STAT S/P parathyroidectomy 03/24/2024 11:48 AM EST PTH Lab STAT S/P parathyroidectomy 03/24/2024 11:48 AM EST Health Maintenance Due Date Last Done Comments DISCUSS TOBACCO CESSATION (REFER TO SMARTSET #7011) 1968 Cologuard 2013 Colonoscopy 2013 Fecal Occult [...] Discussed due to patient's condition Care Teams Receiving Dock Checker Relationship Specialty Start Date End Date Ada Waterman PA-C [address] [facility] [place] [address] PCP - General Physician Ibm Bpm Architect 09/02/22 documented as of this encounter
--- OUTSIDE RECORDS SUMMARY | 2024-03-26 10:15 | External Medical Summary | Summary of Care ---
Author Name Unknown Organization [facility] Address [address] [place] [address] Phone [phone] Care Team Providers Care District Or District Office Director Name Role Phone Ada Waterman PA-C Primary Care Provider [phone] Encounter Details Date Type Department Care Team (Late st Contact Info) Description 03/09/2024 12:30 PM EST Nurse Only Ancillary Department, [facility] [address] [place] [address] [facility] Nurse [address] [place] [address] Arrived Allergies Active Allergy Reactions Criticality Noted Date Comments Canagliflozin 10/08/2022 Uti, yeast Metformin 10/08/2022 Constant diarrhea documented as of this encounter (statuses as of 03/09/2024) Medications Medication Sig Dispensed Refills Start Date End Date Status OneTouch Ultra In Vitro Strip use 1 TEST STRIP to TEST three times a day before meals 09/02/2022 Active OneTouch Delica Plus [id number] use three times a day before meals [...] Rizatriptan Benzoate 10 MG Oral Tablet Disintegrating (Maxalt-RAYON CONER)Indicatio ns:Intractable paroxysmal hemicrania, unspecified chronicity pattern Take [...] No 01/05/2024 Does the household have a [facility] source of income? (Household - for ages [...] on file documented as of this encounter Progress Notes * Misti Larsen LPN - 03/09/2024 3:33 PM EST Pre-Administration Time Out Procedure Performed: Yes Patient Identified (Ask Name/Date of ): Yes Does the patient have a fever greater than 101 degrees today? No Patient allergic to latex? No Has the patient ever fainted after receiving an injection? No VFC Stock: No Injection(s) verified: Yes, Injection Name: Rocephin and toradol Verified Side and Site: Yes Verified Shot(s) with Parent(s)/Patient: Yes She is on a Scopolamine patch and it is not working and would like to have something else sent in. Pharmacy is selected if you send in a script. documented in this encounter Plan of Treatment Upcoming Encounters Date Type Department Care Team (Latest Contact Info) Description 03/21/2024 7:45 AM EST Hospital Encounter [facility] [address] [place] [phone] Sarah Dickerson MD [address] [place] [address] 03/21/2024 7:45 AM EST - 03/21/2024 10:39 AM EST Surgery OR [facility], OPERATING ROOM [facility], [place] [address] [place] [address] Sarah Dickerson MD [address] [place] [address] PARATHYROIDECTOMY 07/04/2024 12:00 PM EST Office Visit [facility] [address] [place], [place] [id number] Ada Waterman PA-C [address] [place], [place] [phone] Scheduled Procedures Name Priority Associated Diagnoses Date/Ti [...] Not on filedocumented as of this encounter Administered Medications Active Administered Medications - up to 3 most recent administrations Medication Order MAR Action Action Date Dose Rate Site cefTRIAXone (Rocephin) (350 mg/mL) inj dilution 1,000 mg 1,000 mg (1 g), Intramuscular, Q24H, First dose on Thu03/09/24 at 1200, Until Discontinued Given 03/09/2024 3:27 PM EST 1,000 mg Dorsogluteal Right Inactive Administered Medications - up to 3 most recent administrations Medication Order MAR Action Action Date Dose Rate Site keTORolac (Toradol) 60 MG/2ML IM inj 60 mg 60 mg, Intramuscular, ONCE, On Thu03/09/24 at 1200, For 1 dose Given 03/09/2024 3:26 PM EST 60 mg Dorsogluteal Left Lidocaine 1 % (PF) inj 1 mL 1 mL, Intramuscular, ONCE, On Thu03/09/24 at 1200, For 1 dose Given 03/09/2024 3:31 PM EST 1 mL Dorsogluteal Right documented in this encounter Care Teams District Or District Office Director Relationship Specialty Start Date End Date Ada Waterman PA-C [address] [place] [facility] [place] [address] PCP - General Physician Systems Integration Engineer 09/02/22 documented as of this encounter
--- OUTSIDE RECORDS SUMMARY | 2024-03-26 10:16 | External Medical Summary ---
Author Name Unknown Address Unknown Organization K01:LABORATORY [facility] - [address] [facility] [place] [address] Laboratory Report Ordering Provider Test Date Status RUTH,VARGAS 03/08/2024 12:30:07 Final Observation Date Value Abnormality Reference (Units ) Status Triglyceride 03/08/2024 12:30:07 189 Above high normal <=174 (mg/dL) Final Triglyceride Reference Range s (mg/dL):
<150 Acceptable
150-174 Borderline high
175-499 High
>=500 Very high Cholesterol 03/08/2024 12:30:07 150 <200 (mg /dL) Final Total Cholesterol Reference Ranges (mg/dL):
<200 Desirable
200-239 Borderline high
>=240 High HDL 03/08/2024 12:30:07 33 Below low normal >49 (mg/dL) Final HDL Cholesterol Reference Ra nges (mg/dL):
>=60 High (Desirable)
<50 Low (Undesirable) For Females
<40 Low (Undesirable) For Males NON-HDL CHOLESTEROL 03/08/2024 12:30:07 117 <=159 (mg/dL) Final Non-HDL Cholesterol Referenc e Range (mg/dL):
<100 Target level for high risk ASCVD patient
<130 Optimal for general population
130-159 Near optimal for general population
160-189 Borderline High
190-219 High
>=220 Very High LDL, (calculated) 03/08/2024 12:30:07 79 <= 129 (mg/dL) Final LDL Cholesterol Reference Ra nges (mg/dL):
<70 Target level for high risk ASCVD patient
<100 Optimal for general population
100-129 Near optimal for general population
130-159 Borderline high
160-189 High
>=190 Very high Performing Location LABORATORY [facility] - [address] [facility] [address]
--- OUTSIDE RECORDS SUMMARY | 2024-03-26 10:16 | External Medical Summary | Summary of Care ---
Author Name Unknown Organization [facility] Address [address] [place] [address] Phone [phone] Care Team Providers Care Electrical Maintenance Man Name Role Phone Ada Waterman PA-C Primary Care Provider [phone] Reason for Referral * Evaluate & Treat - Unlimited Visits (Within 10 days (routine)) - Authorized Specialty Diagnoses / Procedures Referred By Trey turcios Referred To Contact Neurology Diagnoses Dizziness Intractable paroxysmal hemicrania, unspecified chronicity pattern Type 2 diabetes mellitus with hemoglobin A1c goal of less than 7.0% (HCC) Parathyroid abnormality (HCC) Hypercalcemia Elevated PTHrP level Abnormal CT scan Ada Waterman PA-C [address] [place] [address] Referral ID Status Reason Start Date Expiration Date Visits Requested Visits Authorized [id number] Authorized Specialty Services Required 4 [phone] Question Answer Referral Priority Within 10 days (routine) Where should this appointment be scheduled? [facility] Is this referral being placed for insurance purposes ONLY No, patient needs appointment [facility] NEUROLOGY REFERRAL QUESTIONS Headache Has the patient tried 1 abortive and 1 preventative medication? Yes * Precert (Within 24 hrs (call dept; emergent)) - Authorized Specialty Diagnoses / Procedures Referred By Trey turcios Referred To Contact Radiology Diagnoses Dizziness Intractable paroxysmal hemicrania, unspecified chronicity pattern Parathyroid abnormality (HCC) Procedures MRI BRAIN WITHOUT CONTRAST Ada Waterman PA-C [address] [place] [address] Referral ID Status Reason Start Date Expiration Date V isits Requested Visits Authorized [id number] Authorized Precert 03/02/2024 08/29/2024 [id number] Reason for Visit * Reason Comments Dizziness Pt states that she h as been feeling dizzy, she wants her BP medication to be changed to a medication that does not have calcium, need an MRI for head and neck Encounter Details Date Type Department Care Team (Late st Contact Info) Description 03/02/2024 11:20 AM EDT [facility] [address] [facility] [phone] Ada Waterman PA-C [address] [facility] [phone] Intractable paroxysmal hemicrania, unspecified chronicity pattern*; Dizziness; Type 2 diabetes mellitus with hemoglobin A1c goal of less than 7.0% (HCC); Parathyroid abnormality (HCC); Hypercalcemia; Elevated PTHrP level; Abnormal CT scan Allergies Active Allergy Reactions Criticality Noted Date Comments Canagliflozin 10/08/2022 Uti, yeast Metformin 10/08/2022 Constant diarrhea documented as of this encounter (statuses as of 03/02/2024) Medications Medication Sig Dispensed Refills Start Date End Date Status OneTouch Ultra In Vitro Strip use 1 TEST STRIP to TEST three times a day before meals 3 Active OneTouch Delica Plus [id number] use three times a day before meals 3 Active glipiZIDE 5 MG Oral Tablet (Glucotrol)Indicat ions:Type 2 diabetes mellitus with hemoglobin A1c goal of less than 7.0% (HCC) TAKE 1 TABLET BY MOUTH TWICE DAILY 30 MINUTES BEFORE MEALS 180 Tablet 1 4 Active Meclizine HCl 25 MG Oral Tablet (Antivert)Indicati ons:Dizziness Take 0.5-1 Tablets by mouth 3 times a day as needed for Dizziness. 30 Tablet 1 4 Active Furosemide 20 MG Oral Tablet (Lasix)Indications :Fluid retention One tab by mouth int eh morning for fluid retention. Take one dose and hold. 3 Tablet 4 Active Promethazine HCl 25 MG Oral Tablet (Phenergan) Take 1 Tablet by mouth every 6 hours as needed for Other (dizziness). or vomiting 12 Tablet 4 Active Lisinopril 2.5 MG Oral Tablet (Prinivil) TAKE 1 TABLET BY MOUTH IN THE MORNING 90 Tablet 3 4 Active Levothyroxine Sodium 100 MCG Oral Tablet (Levoxyl) TAKE 1 TABLET BY MOUTH ONCE DAILY ON AN EMPTY STOMACH 90 Tablet 3 4 Active Simvastatin 20 MG Oral Tablet (Zocor) Take 1 Tablet by mouth at bedtime. 90 Tablet 1 4 Active Ketorolac Tromethamine 10 MG Oral Tablet (Toradol)Indicatio ns:Intractable paroxysmal hemicrania, unspecified chronicity pattern Take 1 Tablet by mouth 4 times a day as needed for Pain, Severe. Do not take for longer than 5 days 20 Tablet 4 Active Scopolamine 1 MG/3DAYS Transdermal Patch 72 Hour (Transderm-Scop)In dications:Dizzines s Place patch on skin , replace daily for extreme dizziness and nausea 30 Patch 1 4 Active Rizatriptan Benzoate 10 MG Oral Tablet Disintegrating (Maxalt-PUPPY WALKER)Indica tions:Intractable paroxysmal hemicrania, unspecified chronicity pattern Take 1 Tablet by mouth as needed for Migraine. at onset of headache, may repeat every 2 hours. No more than 3 pills in 24 hours 20 Tablet 3 4 Active ALPRAZolam 0.25 MG Oral Tablet (Xanax)Indications :Dizziness,Intract able paroxysmal hemicrania, unspecified chronicity pattern One tab 1 hour prior to mri, repeat 15 min prior, at start and during if needed 5 Tablet 4 Active Premarin 0.625 MG/GM Vaginal Cream (Estrogens Conjugated)Indicat ions:Vaginal dryness, menopausal,Recurre nt UTI Administer 1.5 g into the vagina at bedtime. 3 days a week. 42.5 g 5 3 03/02/20 24 Discontinued Vitamin D3 50 MCG (1999 UT) Oral Capsule (Cholecalciferol) Take 2 Capsules by mouth daily for 30 days, THEN 1 Capsule daily. 135 Capsule 1 4 03/02/20 24 Discontinued Trulicity 3 MG/0.5ML Subcutaneous Solution Pen-injector (Dulaglutide)Indic ations:Type 2 diabetes mellitus with hemoglobin A1c goal of less than 7.0% (HCC) INJECT 3MG UNDER THE SKIN ONCE WEEKLY . 6 mL 3 4 03/02/20 24 Discontinued Scopolamine 1 MG/3DAYS Transdermal Patch 72 Hour (Transderm-Scop)In dications:Dizzines s Place patch on skin , replace every 3 days for extreme dizziness and nausea 30 Patch 1 4 03/02/20 24 Discontinued(Re fill) documented as of this encounter (statuses as of 03/02/2024) Active Problems Problem Noted Date Diagnosed Date Hyperparathyroidism, primary 02/22/2024 Type 2 diabetes mellitus wit h hemoglobin A1c goal of less than 7.0% 01/12/2023 Diabetic peripheral neuropathy 01/12/2023 ADVANCE DIRECTIVE INFORMATION 09/23/2005 Overview: Information offered-patient declined Chest pain 02/05/2000 STRESS REACT NEC 02/05/2000 Tobacco use disorder 02/05/2000 Abnormal weight gain 02/05/2000 documented as of this encounter (statuses as of 03/02/2024) Immunizations Name Administration Dates Next Due TDAP, Age 7 and older, IM (Adacel) 06/14/2020 documented as of this encounter Social History Tobacco Use Types Packs/Day Years Used Date Smoking Tobacco: Every Day Cigarettes 1 10 Smokeless Tobacco: Never Tobacco Cessation:Ready to Q uit: Not Asked; Counseling Given: Not Answered Alcohol Use Standard [...] No 01/05/2024 Does the household have a [facility] source of income? (Household - for [...] Sign Reading Time Taken Comments Blood Pressure 114/66 03/02/2024 11:20 AM EDT Pulse 87 03/02/2024 11:20 AM EDT Temperature 36.5 C (97.7 F) 03/02/2024 11:20 AM E DT Respiratory Rate 16 03/02/2024 11:20 AM EDT Oxygen Saturation 95% 03/02/2024 11:20 AM EDT Inhaled Oxygen Concentration - - Weight 89.9 kg (198 lb 3.2 oz) 03/02/2024 11:20 AM EDT Height 167.6 cm (5' 6") 03/02/2024 11:20 AM EDT Body Mass Index 31.99 03/02/2024 11:20 AM EDT documented in this encounter Progress Notes * Ada Waterman PA-C - 03/02/2024 11:43 AM EDT Images from the original note were not included. History of Present Illness Regina Purcell is a 53 year old female that presents for Dizziness (Pt states that she has been feeling dizzy, she wants her BP medication to be changed to a medication that does not have calcium, need an MRI for head and neck) Here for f/u Was to see endo and they do not feel the headaches relate to the parathyroid issue that is going on Has ent appt an will be having surgery for this Per patient, they suggested MRI of head and neck to follow up. Persistent daily headaches The nausea is bad The patches are helping but not taking it all away She tried to stop the patch and it mad things significantly worse. Has a visual aura where things look green and blue. Pain on top of head. She stopped taking her trulicity shot She looked it up and every side affect can be attributed to that She stopped the trulicty on Thursday She is not eating much This morning bg was 142. Yesterday it went down to 114 mid day. She does not recall what it was at bedtime One day it was 202. This I making it hard to work. She is nauseas, cannot eat correctly and has daily headaches and dizziness She is not sleeping well. She is exhausted and not functioning well. Has not watcehd bp at home Recent labs at endo - calcium 11.4 which is back up Pth was 93.7 Past Medical History: Diagnosis Date Diabetes (HCC) Rizatriptan Benzoate 10 MG Oral Tablet Disintegrating (Maxalt-PUPPY WALKER) Scopolamine 1 MG/3DAYS Transdermal Patch 72 Hour (Transderm-Scop) Ketorolac Tromethamine 10 MG Oral Tablet (Toradol) Levothyroxine Sodium 100 MCG Oral Tablet (Levoxyl) Lisinopril 2.5 MG Oral Tablet (Prinivil) Simvastatin 20 MG Oral Tablet (Zocor) Promethazine HCl 25 MG Oral Tablet (Phenergan) Furosemide 20 MG Oral Tablet (Lasix) Meclizine HCl 25 MG Oral Tablet (Antivert) OneTouch Delica Plus [id number] OneTouch Ultra In Vitro Strip glipiZIDE 5 MG Oral Tablet (Glucotrol) Physical Exam Vitals: 03/02/24 1120 Temp: 36.5 C (97.7 F) Pulse: 87 Resp: 16 SpO2: 95% BP: 114/66 BMI: 32.01 BP Readings from Last 3 Encounters: 03/02/24 114/66 02/06/24 142/82 01/29/24 140/84 Wt Readings from Last 3 Encounters: 03/02/24 89.9 kg (198 lb 3.2 oz) 02/22/24 91.5 kg (201 lb 12.8 oz) 02/06/24 92.1 kg (203 lb) BMI Readings from Last 3 Encounters: 03/02/24 31.99 kg/m 02/22/24 32.57 kg/m 02/06/24 32.77 kg/m Ht Readings from Last 3 Encounters: 03/02/24 1.676 m (5' 6") 02/22/24 1.676 m (5' 6") 01/20/24 1.676 m (5' 6") General: alert, crying, and distressed Head: Normocephalic, No masses, lesions, tenderness or abnormalities Eye Exam: PERRLA, extraocular movements intact, conjunctiva are pink and non- injected, sclera clear Heart: regular rate & rhythm, no murmur, no gallops, S-1 normal, and S-2 normal Lungs: chest symmetric with normal AP diameter, no chest deformities noted, no chest wall tenderness, lungs clear to auscultation Extremities: less than 2 second capillary refill, no joint deformities, effusion, or inflammation Neuro Exam: alert & oriented x 3 with fluent speech, no focal motor/sensory deficits, gait normal, reflexes normal and symmetric Skin: skin color, texture, turgor are normal, no rashes or significant lesions I have reviewed the following results: gustavo SEAY note from 02/26/2024 Assessment and Plan Intractable paroxysmal hemicrania, unspecified chronicity pattern (Primary) - RETURN TO WORK OR SCHOOL - Rizatriptan Benzoate 10 MG Oral Tablet Disintegrating (Maxalt-PUPPY WALKER); Take 1 Tablet by mouth as needed for Migraine. at onset of headache, may repeat every 2 hours. No more than 3 pills in 24 hours - MRI BRAIN WITHOUT CONTRAST; Future; Expected date: 03/02/2024 - ADULT NEUROLOGY REFERRAL OP - ALPRAZolam 0.25 MG Oral Tablet (Xanax); One tab 1 hour prior to mri, repeat 15 min prior, at start and during if needed Dizziness - Scopolamine 1 MG/3DAYS Transdermal Patch 72 Hour (Transderm-Scop); Place patch on skin , replace daily for extreme dizziness and nausea - RETURN TO WORK OR SCHOOL - MRI BRAIN WITHOUT CONTRAST; Future; Expected date: 03/02/2024 - ADULT NEUROLOGY REFERRAL OP - ALPRAZolam 0.25 MG Oral Tablet (Xanax); One tab 1 hour prior to mri, repeat 15 min prior, at start and during if needed Type 2 diabetes mellitus with hemoglobin A1c goal of less than 7.0% (HCC) - RETURN TO WORK OR SCHOOL - ADULT NEUROLOGY REFERRAL OP Parathyroid abnormality (HCC) - RETURN TO WORK OR SCHOOL - MRI BRAIN WITHOUT CONTRAST; Future; Expected date: 03/02/2024 - ADULT NEUROLOGY REFERRAL OP Hypercalcemia - RETURN TO WORK OR SCHOOL - ADULT NEUROLOGY REFERRAL OP Elevated PTHrP level - RETURN TO WORK OR SCHOOL - ADULT NEUROLOGY REFERRAL OP Abnormal CT scan - RETURN TO WORK OR SCHOOL - ADULT NEUROLOGY REFERRAL OP Follow-up: Return if symptoms worsen or fail to improve. | Check-out note: Neuro appt Mri brain Wrap-Up Hold dm meds for now Rev ent note = will get head mri Off work until April 04 - she is not able to work at this time. + Try migraine med Neuro referral per endo Patient needs mri brain - has had daily migraine, dizziness and nausea for weeks. This is not improving,. Endo does not attribute this to her parathyroid issues, they request scan Conservative care has not worked- she is no better and is in fact worse. Time: I spent a total of 30-39 minutes (exact time 32 mins) on the date of service in preparation, delivery, and documentation of the care provided to Regina Purcell excluding any time spent in the performance of separately billed services. Ada Waterman PA-C 03/02/2024 12:07 PM documented in this encounter Nursing Notes * Tomasa Avila LPN - 03/02/2024 11:20 AM EDT Regina Purcell is a 53 year old female who presents today for Chief Complaint Patient presents with Dizziness Pt states that she has been feeling dizzy, she wants her BP medication to be changed to a medication that does not have calcium, need an MRI for head and neck documented in this encounter Plan of Treatment Upcoming Encounters Date Type Department Care Team (Latest Contact Info) Description 03/03/2024 11:15 AM EDT Imaging Radiology [address] [place] [address] 03/21/2024 7:45 AM EST Hospital Encounter OR [facility], OPERATING ROOM [facility] [address] [place] [address] [phone] Sarah Dickerson MD [address] [place] [address] 03/21/2024 7:45 AM EST - 03/21/2024 10:39 AM EST Surgery OR [facility], OPERATING ROOM [facility], [facility] [address] [place] [address] [phone] Sarah Dickerson MD [address] [place] [address] PARATHYROIDECTOMY 07/04/2024 12:00 PM EST Office Visit [facility] [address] [place] [id number] Ada Waterman PA-C [address] [place] [address] Scheduled Orders Name Type Priority Associated Diagnoses Orde r Schedule MRI BRAIN WITHOUT CONTRAST Medical Imaging STAT Dizziness Intractable paroxysmal hemicrania, unspecified chronicity pattern Parathyroid abnormality (HCC) Expected: 03/02/2024, Expires: 04/02/2025 Scheduled Procedures Name Priority Associated Diagnoses Date/Ti me PARATHYROIDECTOMY Hyperparathyroidism, primary (HCC) 03/21/2024 7:45 AM EST Scheduled Referrals Name Type Priority Associated Diagnoses Orde r Schedule ADULT NEUROLOGY REFERRAL OP Referral Within 10 days (routine) Dizziness Intractable paroxysmal hemicrania, unspecified chronicity pattern Type 2 diabetes mellitus with hemoglobin A1c goal of less than 7.0% (HCC) Parathyroid abnormality (HCC) Hypercalcemia Elevated PTHrP level Abnormal CT scan Ordered: 03/02/2024 Health Maintenance Due Date Last Done Comments DISCUSS TOBACCO CESSATION (REFER TO SMARTSET #[id number]) 1968 Cologuard 2013 Colonoscopy 2013 Fecal Occult [...] 01/20/2024, 01/02, 10/09/2022, Additional history exists GFR 02/01/2025 02/02/2024, 01/02, 01/14/2024, Additional history exists Lipid Panel 01/19/2029 01/20/2024, 10/09/2022 DTap/Tdap Vaccines (2 - Td or Tdap) 06/14/2030 06/14/2020, 10/03/1999 COVID-19 Vaccine Discontinued HPV (Gardasil) Vaccine Aged Out No lo [...] Intractable paroxysmal hemicrania, unspecified chronicity pattern- Primary Dizziness Dizziness and giddiness Type 2 diabetes mellitus with hemoglobin A1c goal of less than 7.0% (HCC) Parathyroid abnormality (HCC) Unspecified disorder of parathyroid gland Hypercalcemia Elevated PTHrP level Unspecified disorder of parathyroid gland Abnormal CT scan Other nonspecific (abnormal) findings on radiological and other examinations of body structure Hyperparathyroidism, primary (HCC) Primary hyperparathyroidism documented in this encounter Care Teams Electrical Maintenance Man Relationship Specialty Start Date End Date Ada Waterman PA-C [address] [facility] [address] PCP - General Physician Zyglo Inspector 09/02/22 documented as of this encounter
--- OUTSIDE RECORDS SUMMARY | 2024-03-26 10:16 | External Medical Summary | Summary of Care ---
Author Name Unknown Organization [facility] Address [address] [facility] [address] Phone [phone] Care Team Providers Care Nursing Agency Manager Name Role Phone Ada Waterman PA-C Primary Care Provider [phone] Encounter Details Date Type Department Care Team (Late st Contact Info) Description 03/07/2024 Orders Only PATIENT PORTAL DO NOT DELETE THIS DEPT USED BY JOSE SIGALA [id number] Allergies Active Allergy Reactions Criticality Noted Date Comments Canagliflozin 10/08/2022 Uti, yeast Metformin 10/08/2022 Constant diarrhea documented as of this encounter (statuses as of 03/07/2024) Medications Medication Sig Dispensed Refills Start Date End Date Status OneTouch Ultra In Vitro Strip use 1 TEST STRIP to TEST three times a day before meals 09/02/2022 Active OneTouch Delica Plus [id number] use three times a day before meals [...] Rizatriptan Benzoate 10 MG Oral Tablet Disintegrating (Maxalt-FILLER SHREDDER)Indicatio ns:Intractable paroxysmal hemicrania, unspecified chronicity pattern Take [...] during if needed 5 Tablet 03/02/2024 Active documented as of this encounter (statuses as of 03/07/2024) Active Problems Problem Noted Date Diagnosed Date Hyperparathyroidism, primary 02/22/2024 Type 2 diabetes mellitus wit h hemoglobin A1c goal of less than 7.0% 01/12/2023 Diabetic peripheral neuropathy 01/12/2023 ADVANCE DIRECTIVE INFORMATION 09/23/2005 Overview: Information offered-patient declined Chest pain 02/05/2000 STRESS REACT NEC 02/05/2000 Tobacco use disorder 02/05/2000 Abnormal weight gain 02/05/2000 documented as of this encounter (statuses as of 03/07/2024) Immunizations Name Administration Dates Next Due TDAP, [...] on file documented as of this encounter Plan of Treatment Upcoming Encounters Date Type Department Care Team (Latest Contact Info) Description 03/21/2024 7:45 AM EST Hospital Encounter OR [facility], OPERATING ROOM [facility], [facility] [address] [place] [facility] [place] [address] [phone] Sarah Dickerson MD [address] [place] [address] 03/21/2024 7:45 AM EST - 03/21/2024 10:39 AM EST Surgery OR [facility], OPERATING ROOM [facility], [facility] [address] [place] [facility] [place] [address] Sarah Dickerson MD [address] [place] [address] PARATHYROIDECTOMY 07/04/2024 12:00 PM EST Office Visit [facility] [address] [place] [address] Ada Waterman PA-C [address] [place] [address] Scheduled Procedures Name Priority Associated Diagnoses Date/Ti me PARATHYROIDECTOMY Hyperparathyroidism, primary (HCC) 03/21/2024 7:45 AM EST Health Maintenance Due Date Last Done Comments DISCUSS TOBACCO CESSATION (REFER TO SMARTSET #[id number]) 1968 Cologuard 2013 Colonoscopy 2013 Fecal Occult [...] Not on filedocumented as of this encounter Care Teams Nursing Agency Manager Relationship Specialty Start Date End Date Ada Waterman PA-C [address] [place] [id number] PCP - General Physician It Technician 09/02/22 documented as of this encounter
--- OUTSIDE RECORDS SUMMARY | 2024-03-26 10:16 | External Medical Summary | Summary of Care ---
Author Name Unknown Organization [facility] Address [address] [place] [address] Phone [phone] Care Team Providers Care Pierogi Maker Name Role Phone Ada Waterman PA-C Primary Care Provider +1 -[phone] Reason for Visit * Reason Comments Outpatient Testing Encounter Details Date Type Department Care Team (Late st Contact Info) Description 03/08/2024 12:40 PM EST Laboratory Laboratory, [place] [address] [place] [phone] [place] [address], [place] [id number] Recurrent UTI; Hypercalcemia; Dizziness; Encounter for long-term (current) use of medications; Type 2 diabetes mellitus with hemoglobin A1c goal of less than 7.0% ([facility]); Dyslipidemia, goal LDL below 70; Dark urine Allergies Active Allergy Reactions Criticality Noted Date Comments Canagliflozin 10/08/2022 Uti, yeast Metformin 10/08/2022 Constant diarrhea documented as of this encounter (statuses as of 03/08/2024) Medications Medication Sig Dispensed Refills Start Date End Date Status OneTouch Ultra In Vitro Strip use 1 TEST STRIP to TEST three times a day before meals 09/02/2022 Active OneTouch Delica Plus [id number] use three times a day before meals 09/17/2022 Active glipiZIDE 5 MG Oral Tablet (Glucotrol)Indication s:Type 2 diabetes mellitus with hemoglobin A1c goal of less than 7.0% ([facility]) TAKE 1 TABLET BY MOUTH TWICE [...] Rizatriptan Benzoate 10 MG Oral Tablet Disintegrating (Maxalt-HOSTESS)Indicatio ns:Intractable paroxysmal hemicrania, unspecified chronicity pattern Take [...] as of this encounter (statuses as of 03/08/2024) Active Problems Problem Noted Date Diagnosed Date Hyperparathyroidism, primary 02/22/2024 Type 2 diabetes mellitus wit h hemoglobin A1c goal of less than 7.0% 01/12/2023 Diabetic peripheral neuropathy 01/12/2023 Chest pain 02/05/2000 STRESS REACT NEC 02/05/2000 Tobacco use disorder 02/05/2000 Abnormal weight gain 02/05/2000 documented as of this encounter (statuses as of 03/08/2024) Resolved Problems Problem Noted Date Diagnosed Date Resolved Date ADVANCE DIRECTIVE INFORMATION 09/23/2005 03/07/2024 Overview: Information offered-patient declined documented as of this encounter (statuses as of 03/08/2024) Immunizations Name Administration Dates Next Due TDAP, [...] 03/21/2024 7:45 AM EST [place] [facility] [place] [facility] [address] [address] Sarah Dickerson MD [address] [facility] [address] 03/21/2024 7:45 AM EST - 03/21/2024 10:39 AM EST Surgery [place] [facility] [place] [facility] [place] [facility] [address] [facility] [place] [address] Sarah Dickerson MD [address] [facility] [place] [address] PARATHYROIDECTOMY 07/04/2024 12:00 PM EST [facility] [place] [address] [facility] [address] [place] [address] Ada Waterman PA-C [address] [place] [address] Pending Results Name Type Priority Associated Diagnoses Date /Time URINALYSIS, REFLEX TO CULTURE (NOT FOR NEUTROPENIC PATIENTS) Lab Routine Recurrent UTI 03/08/2024 12:30 PM EST CALCIUM, IONIZED Lab Routine Hypercalcemia Dizziness 03/08/2024 12:30 PM EST LIPID PANEL WITH DIRECT LDL IF TG IS HIGH Lab Routine Encounter for long-term (current) use of medications Type 2 diabetes mellitus with hemoglobin A1c goal of less than 7.0% ([facility]) Dyslipidemia, goal LDL below 70 03/08/2024 12:30 PM EST ALT Lab Routine Encounter for long-term (current) use of medications Dyslipidemia, goal LDL below 70 03/08/2024 12:30 PM EST AST Lab Routine Encounter for long-term (current) use of medications Dyslipidemia, goal LDL below 70 03/08/2024 12:30 PM EST RENAL FUNCTION PANEL Lab Routine Dark urine 03/08/2024 12:30 PM EST URINALYSIS, REFLEX TO CULTURE (CUP ONLY) Lab Routine Recurrent UTI 03/08/2024 12:30 PM EST URINALYSIS, REFLEX TO CULTURE Lab Routine Recurrent UTI 03/08/2024 12:30 PM EST Scheduled Procedures Name Priority Associated Diagnoses Date/Ti me PARATHYROIDECTOMY Hyperparathyroidism, primary ([facility]) 03/21/2024 7:45 AM EST Health Maintenance Due Date Last Done Comments DISCUSS TOBACCO CESSATION (REFER TO SMARTSET #[id number]) 1968 Cologuard 2013 Colonoscopy 2013 Fecal Occult [...] Diagnosis Hyperparathyroidism, primary (HCC)- Primary Primary hyperparathyroidism Recurrent UTI Urinary tract infection, site not specified Hypercalcemia Dizziness Dizziness and giddiness Encounter for long-term (current) use of medications Encounter for long-term (current) use of other medications Type 2 diabetes mellitus with hemoglobin A1c goal of less than 7.0% (HCC) Dyslipidemia, goal LDL below 70 Other and unspecified hyperlipidemia Dark urine Other nonspecific finding on examination of urine Hyperparathyroidism, primary (HCC) Primary hyperparathyroidism documented in this encounter Care Teams Pierogi Maker Relationship Specialty Start Date End Date Ada Waterman PA-C [address] [place] [address] PCP - General Physician Pantograph Watcher 09/02/22 documented as of this encounter
--- OUTSIDE RECORDS SUMMARY | 2024-03-26 10:16 | External Medical Summary | Summary of Care ---
Author Name Unknown Organization [facility] Address [address] [place] [address] Phone [phone] Care Team Providers Care Informatica Developer Name Role Phone Ada Waterman PA-C Primary Care Provider +1 -[phone] Reason for Visit * Reason Onset Date Comments Advice 03/09/2024 Encounter Details Date Type Department Care Team (Late st Contact Info) Description 03/09/2024 [facility] [address] [place] [facility] [place] [address] Ada Waterman PA-C [address] [place] [address] Advice Allergies Active Allergy Reactions Criticality Noted Date Comments Canagliflozin 10/08/2022 Uti, yeast Metformin 10/08/2022 Constant diarrhea documented as of this encounter (statuses as of 03/09/2024) Medications Medication Sig Dispensed Refills Start Date End Date Status OneTouch Ultra In Vitro Strip use 1 TEST STRIP to TEST three times a day before meals 09/02/2022 Active OneTouch Delica Plus [id number] use three times a day before meals [...] Rizatriptan Benzoate 10 MG Oral Tablet Disintegrating (Maxalt-MULCHER OPERATOR)Indicatio ns:Intractable paroxysmal hemicrania, unspecified chronicity pattern [...] No 01/05/2024 Does the household have a [facility] source of income? (Household - for [...] Labs were printed out and faxed to [facility] Endocrinology. Pt was placed on nurse visit [...] 03/21/2024 7:45 AM EST Hospital Encounter [place] [facility] [place] [facility] [facility] [address] [place] [address] Sarah Dickerson MD [address] [place] [address] 03/21/2024 7:45 AM EST - 03/21/2024 10:39 AM EST Surgery [place] [facility] [place] [address] [place] [phone] Sarah Dickerson MD [address] [place] [address] PARATHYROIDECTOMY 07/04/2024 12:00 PM EST Office Visit [facility] [address] [place] [address] Ada Waterman PA-C [address] [place] [address] Scheduled Procedures Name Priority Associated Diagnoses Date/Ti me PARATHYROIDECTOMY Hyperparathyroidism, primary (HCC) 03/21/2024 7:45 AM EST Health Maintenance Due Date Last Done Comments DISCUSS TOBACCO CESSATION (REFER TO SMARTSET #[id number]) 1968 Cologuard 2013 Colonoscopy 2013 Fecal Occult [...] hyperparathyroidism documented in this encounter Care Teams Informatica Developer Relationship Specialty Start Date End Date Ada Waterman PA-C [address] [facility] [place] [address] PCP - General Physician Aircraft Steel Fabricator 09/02/22 documented as of this encounter
--- OUTSIDE RECORDS SUMMARY | 2024-03-26 10:16 | External Medical Summary | Summary of Care ---
Author Name Unknown Organization [facility] Address [address] [place] [address] Phone [phone] Care Team Providers Care Weight Inspector Name Role Phone Ada Waterman PA-C Primary Care Provider +1 -[phone] Reason for Visit * Reason Onset Date Comments Forms Request 03/03/2024 Encounter Details Date Type Department Care Team (Late st Contact Info) Description 03/03/2024 [facility] [address] [place] [address] Ada Waterman PA-C [address] [place] [address] Forms Request Allergies Active Allergy Reactions Criticality Noted Date Comments Canagliflozin 10/08/2022 Uti, yeast Metformin 10/08/2022 Constant diarrhea documented as of this encounter (statuses as of 03/07/2024) Medications Medication Sig Dispensed Refills Start Date End Date Status OneTouch Ultra In Vitro Strip use 1 TEST STRIP to TEST three times a day before meals 09/02/2022 Active OneTouch Delica Plus [id number] use three times a day before meals [...] Rizatriptan Benzoate 10 MG Oral Tablet Disintegrating (Maxalt-ROTARY VENEER MACHINE OPERATOR)Indicatio ns:Intractable paroxysmal hemicrania, unspecified chronicity pattern [...] of this encounter (statuses as of 03/07/2024) Resolved Problems Problem Noted Date Diagnosed Date Resolved Date ADVANCE DIRECTIVE INFORMATION 09/23/2005 03/07/2024 Overview: Information offered-patient declined documented as of this encounter (statuses as of 03/07/2024) Immunizations Name Administration Dates Next Due TD [...] No 01/05/2024 Does the household have a [facility] source of income? (Household - for ages [...] Telephone Encounter - Ada Waterman PA-C - 03/07/2024 4:58 PM EST Done and put on Tomasa's desk end of day Thursday Ada Waterman PA-C * Telephone Encounter - Sarah Blood LPN - 03/07/2024 8:13 AM EST Patient calling to see if her disability forms were completed so she can pick them up. Advised patient that at this time, they haven't been completed, but she will be contacted when they are ready. * Telephone Encounter - Pretty Rincon LPN - 03/03/2024 9:49 AM EDT Placed form in provider's envelope and put in her office to review and sign. * Telephone Encounter - Igor Arthur OSA - 03/03/2024 8:33 AM EDT Per 03/03/24 Patient dropped off disability forms to be filled out by Dr. Waterman. She needs these as soon as possible. Please call number on sticky note when done so she can come pick them up. Put forms in doctors mailbox. documented in this encounter Plan of Treatment Upcoming Encounters Date Type Department Care Team (Latest Contact Info) Description 03/21/2024 7:45 AM EST Hospital [place] [facility] [place] [facility] [facility] [address] [place] [address] Sarah Dickerson MD [address] [place] [address] 03/21/2024 7:45 AM EST - 03/21/2024 10:39 AM EST Surgery [place] [facility] [place] [facility] [address] [place] [address] Sarah Dickerson MD [address] [place] [address] PARATHYROIDECTOMY 07/04/2024 12:00 PM EST Office Visit [facility] [address] [place] [address] Ada Waterman PA-C [address] [place] [address] Scheduled Procedures Name Priority Associated Diagnoses Date/Ti me PARATHYROIDECTOMY Hyperparathyroidism, primary (HCC) 03/21/2024 7:45 AM EST Health Maintenance Due Date Last Done Comments DISCUSS TOBACCO CESSATION (REFER TO SMARTSET #[id number]) 1968 Cologuard 2013 Colonoscopy 2013 Fecal Occult [...] filedocumented as of this encounter Care Teams Weight Inspector Relationship Specialty Start Date End Date Ada Waterman PA-C [address] [facility] [place] [address] PCP - General Physician Chief Information Security Officer 09/02/22 documented as of this encounter
--- OUTSIDE RECORDS SUMMARY | 2024-03-26 10:16 | External Medical Summary | Summary of Care ---
Author Name Unknown Organization [facility] Address [address] [place] [address] Phone [phone] Care Team Providers Care Hydrology Teacher Name Role Phone Ada Waterman PA-C Primary Care Provider +1 -[phone] Reason for Visit * Reason Onset Date Comments Forms Request 03/03/2024 Encounter Details Date Type Department Care Team (Late st Contact Info) Description 03/03/2024 [facility] [address] [place] [address] Ada Waterman PA-C [address] [place] [address] Forms Request Allergies Active Allergy Reactions Criticality Noted Date Comments Canagliflozin 10/08/2022 Uti, yeast Metformin 10/08/2022 Constant diarrhea documented as of this encounter (statuses as of 03/07/2024) Medications Medication Sig Dispensed Refills Start Date End Date Status OneTouch Ultra In Vitro Strip use 1 TEST STRIP to TEST three times a day before meals 09/02/2022 Active OneTouch Delica Plus [id number] use three times a day before meals [...] Rizatriptan Benzoate 10 MG Oral Tablet Disintegrating (Maxalt-LEARNING SUPPORT SPECIALIST)Indicatio ns:Intractable paroxysmal hemicrania, unspecified chronicity pattern Take [...] encounter Miscellaneous Notes * Telephone Encounter - Sarah Blood LPN [...] [facility] [address] [facility] [place] [phone] Sarah Dickerson MD [address] [place], [place] [address] 03/21/2024 7:45 AM EST - 03/21/2024 10:39 AM EST Surgery [place] [facility] [place] [address] [place] [address] Sarah Dickerson MD [address] [place], [place] [phone] PARATHYROIDECTOMY 07/04/2024 12:00 PM EST Office Visit [facility] [address] [place] [address] Ada Waterman PA-C [address] [place] [address] Scheduled Procedures Name Priority Associated Diagnoses Date/Ti me PARATHYROIDECTOMY Hyperparathyroidism, primary (HCC) 03/21/2024 7:45 AM EST Health Maintenance Due Date Last Done Comments DISCUSS TOBACCO CESSATION (REFER TO SMARTSET #[id number]) 1968 Cologuard 2013 Colonoscopy 2013 Fecal Occult [...] filedocumented as of this encounter Care Teams Hydrology Teacher Relationship Specialty Start Date End Date Ada Waterman PA-C [address] [facility] [place] [address] PCP - General Physician Drawing Box Tender 09/02/22 documented as of this encounter
--- OUTSIDE RECORDS SUMMARY | 2024-03-26 10:16 | External Medical Summary ---
Author Name Unknown Address Unknown Organization K01:[facility] [place] - [facility] [address] [facility] [address] Laboratory Report Ordering Provider Test Date Status JIM LYNN 03/08/2024 12:30:07 Final Observation Date Value Abnormality Reference (Units ) Status BUN 03/08/2024 12:30:07 14 6-20 (mg/dL) Final Creatinine 03/08/2024 12:30:07 1.0 0.5-1.0 (mg/dL) Final Glomerular filtration rate/1.73 sq M.predicted [Volume Rate/Area] in Serum, Plasma or Blood by Creatinine-based formula (CKD-EPI) 03/08/2024 12:30:07 63 >=60 (mL/min) Final eGFR is calculated based on the CKD-EPI 2020 equation. Sodium 03/08/2024 12:30:07 140 135-146 (m mol/L) Final Potassium 03/08/2024 12:30:07 4.6 3.5-5.1 (m mol/L) Final Cl 03/08/2024 12:30:07 107 98-107 (mm ol/L) Final CO2 03/08/2024 12:30:07 21 Below low normal 22- 32 (mmol/L) Final Anion gap 03/08/2024 12:30:07 12 7-15 (mmol /L) Final Glucose 03/08/2024 12:30:07 140 Above high normal 70 -120 (mg/dL) Final Calcium 03/08/2024 12:30:07 11.2 Above high normal 8. 4-10.2 (mg/dL) Final Albumin 03/08/2024 12:30:07 4.5 3.8-5.0 (g /dL) Final Phosphate 03/08/2024 12:30:07 2.4 Below low normal 2.5 -4.8 (mg/dL) Final Performing Location [facility] [address] [facility] [address]
--- OUTSIDE RECORDS SUMMARY | 2024-03-26 10:16 | External Medical Summary | Summary of Care ---
Author Name Unknown Organization [facility] Address [address] [place] [address] Phone [phone] Care Team Providers Care Metal Off Bearer Name Role Phone Ada Waterman PA-C Primary Care Provider +1 -[phone] Reason for Visit * Reason Onset Date Comments Appointment 03/02/2024 Encounter Details Date Type Department Care Team ([facility] st Contact Info) Description 03/02/2024 Telephone [facility] [address] [place] [facility] [place] [address] Ada Waterman PA-C [address] [place] [address] Appointment Allergies Active Allergy Reactions Criticality Noted Date Comments Canagliflozin 10/08/2022 Uti, yeast Metformin 10/08/2022 Constant diarrhea documented as of this encounter (statuses as of 03/02/2024) Medications Medication Sig Dispensed Refills Start Date End Date Status OneTouch Ultra In Vitro Strip use 1 TEST STRIP to TEST three times a day before meals 09/02/2022 Active OneTouch Delica Plus [id number] use three times a day before meals [...] Rizatriptan Benzoate 10 MG Oral Tablet Disintegrating (Maxalt-VISUAL PRESENTATION MANAGER)Indicatio ns:Intractable paroxysmal hemicrania, unspecified chronicity pattern Take [...] 03/02/2024) Immunizations Name Administration Dates Next Due TD [...] encounter Miscellaneous Notes * Telephone Encounter - Nithya Salamanca LPN - 03/02/2024 2:44 PM EDT Patient calling in stating that the nurse receptionist on her was out was to fax her referral to [facility] Neurology, she stated they have not received the referral and will not schedule her an appointment until it is received. Faxed Demographics, Office Note from Ada 03/02 and Referral to [phone], received confirmation that the transmission was successful. * Telephone Encounter - Kenia Smith OSA - 03/02/2024 1:48 PM EDT Schedule pt with general neurology. Dept 259 * Telephone Encounter - Enrique Varghese OSA - 03/02/2024 12:14 PM EDT Procedure: ADULT NEUROLOGY REFERRAL OP Status: Needs Scheduling (Fwuy-nw-Frhpsds Pending) Requested appt date: Authorizing: Ada Waterman PA-C in [facility] Referral: [id number] (Authorized) Priority: Within 10 days (routine) Diagnosis: Dizziness [R42] Intractable paroxysmal hemicrania, unspecified chronicity pattern [G44.031] Type 2 diabetes mellitus with hemoglobin A1c goal of less than 7.0% (HCC) [E11.9... Parathyroid abnormality (HCC) [E21.5] Hypercalcemia [E83.52] Elevated PTHrP level [R79.89] Abnormal CT scan [R93.89] Please assist patient with scheduling documented in this encounter Plan of Treatment Upcoming Encounters Date Type Department Care Team (Latest Contact Info) Description 03/03/2024 11:15 AM EDT Imaging Radiology [facility] [address] [place] [address] 03/21/2024 7:45 AM EST Hospital Encounter OR [facility] [place] OPER[place] ROOM [facility] [address] [place] [address] Sarah Dickerson MD [address] [place] [address] 03/21/2024 7:45 AM EST - 03/21/2024 10:39 AM EST Surgery OR [facility] OPERATING ROOM [facility] [address] [place] [address] Sarah Dickerson MD [address] [place] [address] PARATHYROIDECTOMY 07/04/2024 12:00 PM EST Office Visit [facility] [address] [place] [phone] Ada Waterman PA-C [address] [place] [address] Scheduled Procedures Name Priority Associated Diagnoses Date/Ti me PARATHYROIDECTOMY Hyperparathyroidism, primary (HCC) 03/21/2024 7:45 AM EST Health Maintenance Due Date Last Done Comments DISCUSS TOBACCO CESSATION (REFER TO SMARTSET #2867) 1968 Cologuard 2013 Colonoscopy 2013 Fecal Occult [...] filedocumented as of this encounter Care Teams Metal Off Bearer Relationship Specialty Start Date End Date Ada Waterman PA-C [address] [place] [address] PCP - General Physician Machine Hoop Maker 09/02/22 documented as of this encounter
--- OUTSIDE RECORDS SUMMARY | 2024-03-26 10:16 | External Medical Summary | Summary of Care ---
Author Name Unknown Organization [facility] Address [address] [place] [address] Phone [phone] Care Team Providers Care Bottling Equipment Sales Representative Name Role Phone Ada Waterman PA-C Primary Care Provider +1 -[phone] Reason for Visit * Reason Onset Date Comments Forms Request 03/03/2024 Encounter Details Date Type Department Care Team (Late st Contact Info) Description 03/03/2024 [facility] [address] [place] [address] Ada Waterman PA-C [address] [place] [address] Forms Request Allergies Active Allergy Reactions Criticality Noted Date Comments Canagliflozin 10/08/2022 Uti, yeast Metformin 10/08/2022 Constant diarrhea documented as of this encounter (statuses as of 03/08/2024) Medications Medication Sig Dispensed Refills Start Date End Date Status OneTouch Ultra In Vitro Strip use 1 TEST STRIP to TEST three times a day before meals 09/02/2022 Active OneTouch Delica Plus [id number] use three times a day before meals [...] Rizatriptan Benzoate 10 MG Oral Tablet Disintegrating (Maxalt-ANALYTICS SENIOR MANAGER)Indicatio ns:Intractable paroxysmal hemicrania, unspecified chronicity pattern [...] 03/08/2024) Immunizations Name Administration Dates Next Due TD [...] encounter Miscellaneous Notes * Telephone Encounter - Tomasa Avila LPN - 03/08/2024 1:41 PM EST Called pt. Call went to . Left a message that form is out font. Form is fims and out front ready for picker/puller. * Telephone Encounter - Nithya Salamanca LPN - 03/08/2024 8:19 AM EST Patient calling in to check on the status of her form. Advised that Ada completed the form. * Telephone Encounter - Ada Waterman PA-C [...] 03/21/2024 7:45 AM EST Hospital [place] [facility] [place] [facility] [address] [place] [address] Sarah Dickerson MD [address] [place] [address] 03/21/2024 7:45 AM EST - 03/21/2024 10:39 AM EST Surgery [place] [facility] [place] [facility] [facility] [address] [place] [address] Sarah Dickerson MD [address] [place] [address] PARATHYROIDECTOMY 07/04/2024 12:00 PM EST Office [facility] [address] [facility] [address] Ada Waterman PA-C [address] [place] [address] Scheduled Procedures Name Priority Associated Diagnoses Date/Ti me PARATHYROIDECTOMY Hyperparathyroidism, primary (HCC) 03/21/2024 7:45 AM EST Health Maintenance Due Date Last Done Comments DISCUSS TOBACCO CESSATION (REFER TO SMARTSET #3429) 1968 Cologuard 2013 Colonoscopy 2013 Fecal Occult [...] filedocumented as of this encounter Care Teams Bottling Equipment Sales Representative Relationship Specialty Start Date End Date Ada Waterman PA-C [address] [facility] [place] [place] [address] PCP - General Physician Cuff Folder 09/02/22 documented as of this encounter
--- OUTSIDE RECORDS SUMMARY | 2024-03-26 10:16 | External Medical Summary | Summary of Care ---
Author Name Unknown Organization [facility] Address [address] [place] [address] Phone [phone] Care Team Providers Care Ocean Import Representative Name Role Phone Ada Waterman PA-C Primary Care Provider +1 [phone] Reason for Visit * Reason Onset Date Comments Imaging Records Request 03/01/2024 Encounter Details Date Type Department Care Team (Late st Contact Info) Description 03/01/2024 Telephone Radiology Film File [address] [place] [address] Support, Imaging Radiology [address] [place] [address] Imaging Records Request Allergies Active Allergy Reactions Criticality Noted Date Comments Canagliflozin 10/08/2022 Uti, yeast Metformin 10/08/2022 Constant diarrhea documented as of this encounter (statuses as of 03/01/2024) Medications Medication Sig Dispensed Refills Start Date End Date Status OneTouch Ultra In Vitro Strip use 1 TEST STRIP to TEST three times a day before meals 09/02/2022 Active OneTouch Delica Plus [id number] use three times a day before meals 09/17/2022 Active Premarin 0.625 MG/GM Vaginal Cream (Estrogens Conjugated)Indicat ions:Vaginal dryness, menopausal,Recurre nt UTI Administer 1.5 g into the vagina at bedtime. 3 days a week. 42.5 g 5 02/26/2023 Active Additional Information Patient not taking.Reported on 02/06/2024 Vitamin D3 50 MCG (1999 UT) Oral Capsule (Cholecalciferol) Take 2 Capsules by mouth daily for 30 days, THEN 1 Capsule daily. 135 Capsule 1 08/05/2023 06/30/2024 Active Additional Information Patient not taking.Reported on 02/22/2024 glipiZIDE 5 MG Oral Tablet (Glucotrol)Indicat ions:Type [...] 01/14/2024 Active Furosemide 20 MG Oral Tablet (Lasix)Indications :Fluid retention One tab by mouth int eh morning for fluid retention. Take one dose and hold. 3 Tablet 01/29/2024 Active Trulicity 3 MG/0.5ML Subcutaneous Solution Pen-injector (Dulaglutide)Indic ations:Type 2 diabetes mellitus with hemoglobin A1c goal of less than 7.0% (HCC) INJECT 3MG UNDER THE SKIN ONCE WEEKLY . 6 mL 3 02/08/2024 Active Promethazine HCl 25 MG Oral Tablet (Phenergan) Take 1 Tablet by mouth every 6 hours as needed for Other (dizziness). or vomiting 12 Tablet 02/11/2024 Active Scopolamine 1 MG/3DAYS Transdermal Patch 72 Hour (Transderm-Scop)In dications:Dizzines s Place patch on skin , replace every 3 days for extreme dizziness and nausea 30 Patch 1 02/11/2024 Active Lisinopril 2.5 MG Oral Tablet [...] than 5 days 20 Tablet 02/24/2024 Active documented as of this encounter (statuses as of 03/01/2024) Active Problems Problem Noted Date Diagnosed Date Hyperparathyroidism, primary 02/22/2024 Type 2 diabetes mellitus wit h hemoglobin A1c goal of less than 7.0% 01/12/2023 Diabetic peripheral neuropathy 01/12/2023 ADVANCE DIRECTIVE INFORMATION 09/23/2005 Overview: Information offered-patient declined Chest pain 02/05/2000 STRESS REACT NEC 02/05/2000 Tobacco use disorder 02/05/2000 Abnormal weight gain 02/05/2000 documented as of this encounter (statuses as of 03/01/2024) Immunizations Name Administration Dates Next Due TDAP, [...] encounter Miscellaneous Notes * Telephone Encounter - Ryan Akhtar, Epic Support - 03/01/2024 11:56 AM EDT [email or web address] requesting 02-01-2024 to 02-08-2024 , [place] images be pushed through PACS. [place] Authorization to Release on file. Images pushed to [email or web address] PACS external connection. documented in this encounter Plan of Treatment Upcoming Encounters Date Type Department Care Team (Latest Contact Info) Description 03/21/2024 7:45 AM EST [facility] [address] [place] [address] Sarah Dickerson MD [address] [place], [place] [id number] 03/21/2024 7:45 AM EST - 03/21/2024 10:39 AM EST Surgery OR [facility] [address] [facility] [place] [phone] Sarah Dickerson MD [address] [place] [address] PARATHYROIDECTOMY 07/04/2024 12:00 PM EST Office Visit [facility] [address] [place] [address] Ada Waterman PA-C [address] [place] [address] Scheduled Procedures Name Priority Associated [...] filedocumented as of this encounter Care Teams Ocean Import Representative Relationship Specialty Start Date End Date Ada Waterman PA-C [address] [facility] [place] [address] PCP - General Physician Buttonholer 09/02/22 documented as of this encounter
--- OUTSIDE RECORDS SUMMARY | 2024-03-26 10:16 | External Medical Summary | Summary of Care ---
Author Name Unknown Organization [facility] Address [address] [place] [address] Phone [phone] Care Team Providers Care Inspector Semiconductor Wafer Name Role Phone Ada Waterman PA-C Primary Care Provider [phone] [phone] Reason for Visit * Reason Onset Date Comments Appointment 03/02/2024 Encounter Details Date Type Department Care Team ([facility] st Contact Info) Description 03/02/2024 Telephone [facility] [address] [place] [facility] [place] [address] Ada Waterman PA-C [address] [place] [address] Appointment Allergies Active Allergy Reactions Criticality Noted Date Comments Canagliflozin 10/08/2022 Uti, yeast Metformin 10/08/2022 Constant diarrhea documented as of this encounter (statuses as of 03/02/2024) Medications Medication Sig Dispensed Refills Start Date End Date Status OneTouch Ultra In Vitro Strip use 1 TEST STRIP to TEST three times a day before meals 09/02/2022 Active OneTouch Delica Plus [id number] use three times a day before meals [...] Rizatriptan Benzoate 10 MG Oral Tablet Disintegrating (Maxalt-BLOW DOWN OPERATOR)Indicatio ns:Intractable paroxysmal hemicrania, unspecified chronicity pattern [...] encounter Miscellaneous Notes * Telephone Encounter - Enrique Varghese OSA - 03/02/2024 12:14 PM EDT Procedure: ADULT NEUROLOGY REFERRAL OP Status: Needs Scheduling (Awro-cl-Pcsohkd Pending) Requested appt date: Authorizing: Ada Waterman PA-C in [facility] Referral: [id number] (Authorized) Priority: Within 10 days (routine) Diagnosis: [...] Description 03/03/2024 11:15 AM EDT Imaging Radiology [facility] [address] [place] [address] 03/21/2024 7:45 AM EST Hospital Encounter [facility], OPERATING ROOM [facility] [address] [facility] [place] [address] Sarah Dickerson MD [address] [place] [address] 03/21/2024 7:45 AM EST - 03/21/2024 10:39 AM EST Surgery OR [facility], OPERATING ROOM [facility] [address] [place] [address] Sarah Dickerson MD [address] [place] [address] PARATHYROIDECTOMY 07/04/2024 12:00 PM EST Office Visit [facility] [address] [place] [address] Ada Waterman PA-C [address] [place] [address] Scheduled Procedures Name Priority Associated Diagnoses Date/Ti me PARATHYROIDECTOMY Hyperparathyroidism, primary (HCC) 03/21/2024 7:45 AM EST Health Maintenance Due Date Last Done Comments DISCUSS TOBACCO CESSATION (REFER TO SMARTSET #3294) 1968 Cologuard 2013 Colonoscopy 2013 Fecal Occult [...] filedocumented as of this encounter Care Teams Inspector Semiconductor Wafer Relationship Specialty Start Date End Date Ada Waterman PA-C [address] [facility] [address] PCP - General Physician Manager Transportation 09/02/22 documented as of this encounter
--- OUTSIDE RECORDS SUMMARY | 2024-03-26 10:16 | External Medical Summary ---
Author Name Unknown Address Unknown Organization K01:LABORATORY [facility] - [address] [place] [address] Laboratory Report Ordering Provider Test Date Status VARGAS MIRANDA 03/08/2024 12:30:07 Final Observation Date Value Abnormality Reference (Units ) Status ALT (Alanine aminotransferase) 03/08/2024 12:30:07 19 10-35 (U/L) Final Performing Location LAB[facility]ORY [facility] - [address] [place] [address]
--- OUTSIDE RECORDS SUMMARY | 2024-03-26 10:16 | External Medical Summary | Summary of Care ---
Author Name Unknown Organization [facility] Address [address] [place] [address] Phone [phone] Care Team Providers Care Pressure Test Operator Name Role Phone Ada Waterman PA-C Primary Care Provider +1 [phone] Reason for Visit * Reason Onset Date Comments Forms Request 03/03/2024 Encounter Details Date Type Department Care Team (Late st Contact Info) Description 03/03/2024 Telephone [facility] [address] [place] [address] Ada Waterman PA-C [address] [place] [address] Forms Request Allergies Active Allergy Reactions Criticality Noted Date Comments Canagliflozin 10/08/2022 Uti, yeast Metformin 10/08/2022 Constant diarrhea documented as of this encounter (statuses as of 03/08/2024) Medications Medication Sig Dispensed Refills Start Date End Date Status OneTouch Ultra In Vitro Strip use 1 TEST STRIP to TEST three times a day before meals 09/02/2022 Active OneTouch Delica Plus [id number] use three times a day before meals [...] Rizatriptan Benzoate 10 MG Oral Tablet Disintegrating (Maxalt-MOBILE HOME LABORER)Indicatio ns:Intractable paroxysmal hemicrania, unspecified chronicity pattern Take [...] No 01/05/2024 Does the household have a [facility] source of income? (Household - [...] 03/21/2024 7:45 AM EST Hospital Encounter [place] [facility] [address] [place] [address] Sarah Dickerson MD [address] [place] [address] 03/21/2024 7:45 AM EST - 03/21/2024 10:39 AM EST Surgery OR [facility], [facility] [address] [place] [address] Sarah Dickerson MD [address] [place] [address] PARATHYROIDECTOMY 07/04/2024 12:00 PM EST Office Visit [address] [address] Ada Watermna PA-C [address] [place], [place] [phone] Scheduled Procedures Name Priority Associated Diagnoses Date/Ti [...] filedocumented as of this encounter Care Teams Pressure Test Operator Relationship Specialty Start Date End Date Ada Waterman PA-C [address] [facility] [place] [address] PCP - General Physician Foil Spinner 09/02/22 documented as of this encounter
--- OUTSIDE RECORDS SUMMARY | 2024-03-26 10:16 | External Medical Summary | Summary of Care ---
Author Name Unknown Organization [facility] Address [address] [facility] [address] Phone [phone] Care Team Providers Care Information Resources Director Name Role Phone Ada Waterman PA-C Primary Care Provider +1 [phone] Encounter Details Date Type Department Care Team (Late st Contact Info) Description 03/07/2024 Orders Only PATIENT PORTAL DO NOT DELETE THIS DEPT USED BY JOSE SIGALA [id number] Allergies Active Allergy Reactions Criticality Noted Date Comments Canagliflozin 10/08/2022 Uti, yeast Metformin 10/08/2022 Constant diarrhea documented as of this encounter (statuses as of 03/08/2024) Medications Medication Sig Dispensed Refills Start Date End Date Status OneTouch Ultra In Vitro Strip use 1 TEST STRIP to TEST three times a day before meals 09/02/2022 Active OneTouch Delica Plus [id number] use three times a day before meals [...] Rizatriptan Benzoate 10 MG Oral Tablet Disintegrating (Maxalt-TRANSIT MIXER DRIVER)Indicatio ns:Intractable paroxysmal hemicrania, unspecified chronicity pattern Take [...] 03/21/2024 7:45 AM EST Hospital Encounter OR [facility], OPERATING [facility] [address] [place] [address] Sarah Dickesron MD [address] [place] [address] 03/21/2024 7:45 AM EST - 03/21/2024 10:39 AM EST Surgery OR [facility], OPERATING ROOM [facility], [facility] [address] [place] [address] Sarah Dickerson MD [address] [place] [address] PARATHYROIDECTOMY 07/04/2024 12:00 PM EST Office Visit [facility] [address] [place] [address] Ada Waterman PA-C [address] [place], [place] [address] Scheduled Procedures Name Priority Associated Diagnoses Date/Ti me PARATHYROIDECTOMY Hyperparathyroidism, primary (HCC) 03/21/2024 7:45 AM EST Health Maintenance Due Date Last Done Comments DISCUSS TOBACCO CESSATION (REFER TO SMARTSET #1861) 1968 Cologuard 2013 Colonoscopy 2013 Fecal Occult [...] filedocumented as of this encounter Care Teams Information Resources Director Relationship Specialty Start Date End Date Ada Waterman PA-C [address] [place] [address] PCP - General Physician Charge Hand 09/02/22 documented as of this encounter
--- OUTSIDE RECORDS SUMMARY | 2024-03-26 10:16 | External Medical Summary ---
Author Name Unknown Address Unknown Organization K01:LABORATORY [facility] - [address] [place] [address] Laboratory Report Ordering Provider Test Date Status VARGAS MIRANDA 03/08/2024 12:30:07 Final Observation Date Value Abnormality Reference (Units ) Status AST (Aspartate aminotransferase) 03/08/2024 12:30:07 16 10-35 (U/L) Final Performing Location [facility]ORY [facility] - [address] [place] [address]
--- OUTSIDE RECORDS SUMMARY | 2024-03-26 10:16 | External Medical Summary | Summary of Care ---
Author Name Unknown Organization [facility] Address [address] [place] [address] Phone [phone] Care Team Providers Care Environmental Services Specialist Name Role Phone Ada Waterman PA-C Primary Care Provider [phone] [phone] Reason for Visit * Reason Onset Date Comments Forms Request 03/03/2024 Encounter Details Date Type Department Care Team (Late st Contact Info) Description [facility] [address] [place] [address] Ada Waterman PA-C [address] [place] [address] Forms Request Allergies Active Allergy Reactions Criticality Noted Date Comments Canagliflozin 10/08/2022 Uti, yeast Metformin 10/08/2022 Constant diarrhea documented as of this encounter (statuses as of 03/07/2024) Medications Medication Sig Dispensed Refills Start Date End Date Status OneTouch Ultra In Vitro Strip use 1 TEST STRIP to TEST three times a day before meals 09/02/2022 Active OneTouch Delica Plus [id number] use three times a day before meals [...] Rizatriptan Benzoate 10 MG Oral Tablet Disintegrating (Maxalt-SENIOR MICROSOFT CONSULTANT)Indicatio ns:Intractable paroxysmal hemicrania, unspecified chronicity pattern Take [...] 7:45 AM EST Hospital Encounter OR [facility], [facility] [address] [facility] [phone] Sarah Dickerson MD [address] [place], [place] [phone] 03/21/2024 7:45 AM EST - 03/21/2024 10:39 AM EST Surgery OR [facility], [facility] [address] [place] [address] Sarah Dickerson MD [address] [place], [place] [address] PARATHYROIDECTOMY 07/04/2024 12:00 PM EST Office Visit [facility] [address] [place] [address] Ada Waterman PA-C [address] [place] [address] Scheduled Procedures Name Priority Associated Diagnoses Date/Ti me PARATHYROIDECTOMY Hyperparathyroidism, primary (HCC) 03/21/2024 7:45 AM EST Health Maintenance Due Date Last Done Comments DISCUSS TOBACCO CESSATION (REFER TO SMARTSET #3588) 1968 Cologuard 2013 Colonoscopy 2013 Fecal Occult [...] filedocumented as of this encounter Care Teams Environmental Services Specialist Relationship Specialty Start Date End Date Ada Waterman PA-C [address] [facility] [place] [address] PCP - General Physician Family Advocate 09/02/22 documented as of this encounter
--- OUTSIDE RECORDS SUMMARY | 2024-03-26 10:16 | External Medical Summary | Summary of Care ---
Author Name Unknown Organization [facility] Address [address] [place] [address] Phone [phone] Care Team Providers Care Humanities And Languages Professor Name Role Phone Ada Waterman PA-C Primary Care Provider [phone] [phone] Reason for Visit * Reason Onset Date Comments Appointment 03/02/2024 Encounter Details Date Type Department Care Team ([facility] st Contact Info) Description 03/02/2024 Telephone [facility] [place] [address] [place] [facility] [place] [address] Ada Waterman PA-C [address] [place] [address] Appointment Allergies Active Allergy Reactions Criticality Noted Date Comments Canagliflozin 10/08/2022 Uti, yeast Metformin 10/08/2022 Constant diarrhea documented as of this encounter (statuses as of 03/02/2024) Medications Medication Sig Dispensed Refills Start Date End Date Status OneTouch Ultra In Vitro Strip use 1 TEST STRIP to TEST three times a day before meals 09/02/2022 Active OneTouch Delica Plus [id number] use three times a day before meals [...] Rizatriptan Benzoate 10 MG Oral Tablet Disintegrating (Maxalt-BELT MAKER HELPER)Indicatio ns:Intractable paroxysmal hemicrania, unspecified chronicity pattern Take [...] encounter Miscellaneous Notes * Telephone Encounter - Kenia mSith OSA - 03/02/2024 1:48 PM EDT Schedule pt with general neurology. Dept 259 * Telephone Encounter - Enrique Varghese OSA - 03/02/2024 12:14 PM EDT Procedure: ADULT NEUROLOGY REFERRAL OP Status: Needs Scheduling (Ojfv-qf-Bbuyrtg Pending) Requested appt date: Authorizing: Ada Waterman PA-C in [facility] Referral: [id number] (Authorized) Priority: Within 10 days (routine) Diagnosis: [...] Description 03/03/2024 11:15 AM EDT Imaging Radiology [facility] 1st [facility], [address] [place] [address] 03/21/2024 7:45 AM EST Hospital Encounter [facility] [address] [facility] [place] [phone] Sarah Dickerson MD [address] [place] [address] 03/21/2024 7:45 AM EST - 03/21/2024 10:39 AM EST Surgery OR [facility] [address] [facility] [place] [address] Sarah Dickerson MD [address] [facility] [place] [address] PARATHYROIDECTOMY 07/04/2024 12:00 PM EST Office Visit [facility] [address] [place] [address] Ada Waterman PA-C [address] [place] [address] Scheduled Procedures Name Priority Associated Diagnoses Date/Ti me PARATHYROIDECTOMY Hyperparathyroidism, primary (HCC) 03/21/2024 7:45 AM EST Health Maintenance Due Date Last Done Comments DISCUSS TOBACCO CESSATION (REFER TO SMARTSET #3219) 1968 Cologuard 2013 Colonoscopy 2013 Fecal Occult [...] filedocumented as of this encounter Care Teams Humanities And Languages Professor Relationship Specialty Start Date End Date Ada Waterman PA-C [address] [facility] [place] [address] PCP - General Physician Media Relations Intern 09/02/22 documented as of this encounter
--- OUTSIDE RECORDS SUMMARY | 2024-03-26 10:16 | External Medical Summary ---
Author Name Unknown Address Unknown Organization K01:LABORATORY [facility] - [address] [place] [address] Laboratory Report Ordering Provider Test Date Status LEAHRIKKIMARY CARMEN 03/08/2024 12:30:07 Final Observation Date Value Abnormality Reference (Units ) Status Calcium.ionized [Moles/volume] in Serum or Plasma by Ion-selective membrane electrode (ISE) 03/08/2024 12:30:07 1.55 Above high normal 1.13-1.32 (mmol/L) Final This test was developed and its performance characteristics dtermined by [employer]. It has not been cleared or approved by the [place] Food and Drug Administration Performing Location LABORATORY [facility] - [address] [place] [address]
--- OUTSIDE RECORDS SUMMARY | 2024-03-26 10:17 | External Medical Summary | Summary of Care ---
Author Name Unknown Organization [facility] Address [address] [place] [address] Phone [phone] Care Team Providers Care Latent Fingerprint Examiner Name Role Phone Ada Waterman PA-C Primary Care Provider +1 -[phone] Reason for Visit * Reason Comments eRx-Medication Refill Encounter Details Date Type Department Care Team (Late st Contact Info) Description 02/28/20[facility] [address] [place] [phone] Ada Waterman PA-C [address] [place] [address] Allergies Active Allergy Reactions Criticality Noted Date Comments Canagliflozin 10/08/2022 Uti, yeast Metformin 10/08/2022 Constant diarrhea documented as of this encounter (statuses as of 03/01/2024) Medications Medication Sig Dispensed Refills Start Date End Date Status OneTouch Ultra In Vitro Strip use 1 TEST STRIP to TEST three times a day before meals 09/02/2022 Active OneTouch Delica Plus [id number] use three times a day before meals [...] hemoglobin A1c goal of less than 7.0% ([facility]) INJECT 3MG UNDER THE SKIN ONCE WEEKLY [...] encounter Miscellaneous Notes * Telephone Encounter - Nahun Disla RPh - 03/01/2024 6:33 AM EDT Refused Prescriptions: Disp Refills SV Vitamin D3 50 MCG Oral Capsule (Choleca*135 Ca*0 Sig: TAKE 2CAPSULES BY MOUTH ONCE DAILY FOR 30 DAYS, THEN 1 CAPSULE DAILYRefused By: NAHUN DISLA for Refusal: Patient Should Contact Provider First documented in this encounter Plan of Treatment Upcoming Encounters Date Type Department Care Team (Latest Contact Info) Description 03/21/2024 7:45 AM EST Hospital Encounter [facility], OPERATING ROOM [facility], [facility] [address] [place] [facility] [place] [phone] Sarah Dickerson MD [address] [place] [place] [place] [address] 03/21/2024 7:45 AM EST - 03/21/2024 10:39 AM EST Surgery OR [facility], OPERATING ROOM [facility], [facility] [address] [place] [address] Sarah Dickerson MD [address] [place] [address] PARATHYROIDECTOMY 07/04/2024 12:00 PM EST Office Visit [facility] [address] [place] [address] Ada Waterman PA-C [address] [place] [address] Scheduled Procedures Name Priority Associated Diagnoses Date/Ti me PARATHYROIDECTOMY Hyperparathyroidism, primary (HCC) 03/21/2024 7:45 AM EST Health Maintenance Due Date Last Done Comments DISCUSS TOBACCO CESSATION (REFER TO SMARTSET #1452) 1968 Cologuard 2013 Colonoscopy 2013 Fecal Occult [...] filedocumented as of this encounter Care Teams Latent Fingerprint Examiner Relationship Specialty Start Date End Date Ada Waterman PA-C [address] [place] [place] [address] PCP - General Physician Vigoureux Printer 09/02/22 documented as of this encounter
[2024-03-26] MEDS: NICOTINE 14 MG/24 HR PATCH TD SCH (10:21)
[2024-03-26] MEDS: MAGNESIUM SULFATE / D5W 1 GM/100 ML BAG IV ONE (10:56)
--- NOTE | 2024-03-26 11:15 | CT Scan Report ---
CT OF THE HEAD WITHOUT CONTRAST CLINICAL HISTORY: Persistent headache. COMPARISON STUDY: MRI of the brain August 25, 2006. Head CT and CTA of the head January 26, 2024. CT DOSE: 580.53 mGy.cm TECHNIQUE: Helical axial images of the head were obtained without IV contrast. Automated exposure con trol was utilized for the study. A dose lowering technique was utilized adhering to the principles o f ALARA. FINDINGS: No acute intracranial hemorrhage, midline shift or mass effect is present. The ventricular system is unremarkable. The basal cisterns are patent. No extra-axial collections are present. There are no findings to suggest acute dural sinus thrombosis or acute territorial infarct. No significant calvarial abnormalities are present. Visualized portions of the sinuses and mastoid air cells are alfred ar. IMPRESSION: No acute intracranial findings. ACT 112: Negative or not required by law. Electronically signed by: Amrando Santos M.D. 03/26/2024 11:14 AM
[2024-03-26] MEDS: CALCIUM GLUCONATE 1,000 MG/60 ML BAG IV STA (11:32)
[2024-03-26] MEDS: LORazepam 0.5 MG TAB PO PRN (11:32)
[2024-03-26] MEDS: MAGNESIUM HYDROXIDE SUSP 30 ML UDC PO PRN (12:04)
[2024-03-26] MEDS: CALCITRIOL 0.25 MCG CAPSULE PO ONE (12:04)
[2024-03-26] MEDS: DOCUSATE SODIUM 100 MG CAP PO SCH (12:04)
[2024-03-26] MEDS ORDERED: PHARMACY GLYCEMIC MGMT CONSULT PRN (12:54)
[2024-03-26] MEDS: CALCITRIOL 0.25 MCG CAPSULE PO SCH (13:16)
[2024-03-26] MEDS: ERGOCALCIFEROL 1250 MCG (50,000 UNITS) CAP PO SCH (13:16)
[2024-03-26] MEDS: CALCIUM CARBONATE 500 MG CHEWABLE TAB PO SCH (13:17)
[2024-03-26] MEDS ORDERED: hydrOXYzine HCl 10 MG TAB PO PRN (14:14)
[2024-03-26] MEDS: PROMETHAZINE 6.25 MG/50.25 ML BAG IV PRN (14:22)
--- NOTE | 2024-03-26 14:42 | Pharmacy Report ---
Pharmacy Glycemic Short Note 2 - Date of Service March 26, 2024 - Glycemic Short BSG Results (Last 24 hours): 03/25/24 03/25/24 03/26/24 17:34 19:54 07:18 Glucose 177 H POC Glucose 149 H 191 H 03/26/24 03/26/24 07:39 11:08 Glucose POC Glucose 193 H 224 H OUTPATIENT ANTIDIABETIC REGIMEN: * Trulicity, glipizide * A1c pending; reportedly 7.4% in January ASSESSMENT: * Patient admitted s/p parathyroidectomy 03/21/24 at [facility] with electrolyte abnormalities, paraesthesia * BSGs have been trending upward since admission * Will initiate 10 units of lantus with dinner * Tighten novolog parameters between weight based stress of 1 and 2 PLAN FOR INPATIENT GLYCEMIC CONTROL: * Hold outpatient oral diabetes medications * Basal insulin * Lantus 10 units * Bolus insulin * NovoLog per scale ACHS or Q6hrs while NPO * Goal Range: Low 110 mg/dL - High 140 mg/dL * Correction Factor: 30 mg/dL/unit * Nutritional / Prandial insulin per carb ratio of 1 unit per 12 grams CHO consumed
[2024-03-26] MEDS: LANTUS PER UNIT CHARGE SC SCH (17:19)
--- OUTSIDE RECORDS SUMMARY | 2024-03-26 17:24 | External Medical Summary | Summary of Care ---
Author Name Unknown Organization [facility] Address [address] [place] [address] Phone [phone] Care Team Providers Care Sound Person Name Role Phone Ada Waterman PA-C Primary Care Provider [phone] Reason for Visit * Reason Onset Date Comments Advice 03/25/2024 Encounter Details Date Type Department Care Team (Late st Contact Info) Description 03/25/2024 Telephone Otolaryngology/Head & Neck/Facial Plastic Surgery [address], [place] [id number] Sarah Dickerson MD [address] [place] [address] Advice Allergies Active Allergy Reactions Criticality Noted Date Comments Canagliflozin Other (Please comment) Low 10/08/2022 Uti, yeast Metformin Diarrhea Low 10/08/2022 Constant diarrhea Oxycodone Nausea/vomiting 03/21/2024 documented as of this encounter (statuses as of 03/25/2024) Medications OneTouch Ultra In Vitro Strip use 1 TEST STRIP to TEST three times a day before meals 09/03/19 23 Active OneTouch Delica Plus [id number] use three times a day before meals [...] Information Patient taking differently: 112 mcg Oral [id number], TAKE 1 TABLET BY MOUTH ONCE DAILY [...] dizziness and nausea 30 Patch 1 03/02/20 Active Rizatriptan Benzoate 10 MG Oral Tablet Disintegrating (Maxalt-CRYPTOZOOLOGIST)Indica tions:Intractable paroxysmal hemicrania, unspecified chronicity pattern Take [...] bedtime. 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 Ca results received 9.4 mg/dL. Patient still feels awful. Numbness/tingling spread to neck, face, and lips. Discussed fluid intake since surgery. Patient describes fluid intake as minimal and states all she does is sleeps. Recommended that patient go to the nearest ED to assess for fluid & electrolyte imbalance. Patient agreeable to same and patient's sister will peoples sport. Marla Shah PhD RN aerial photograph interpreter Otolaryngology * Telephone Encounter - Marla Shah RN - 03/25/2024 8:57 AM EST Call received from patient. Per patient, she is feeling worse this morning and the numbness and tingling in her hands extending to her elbows is persistent. She also describes having '"full body shaking." Discussed with Dr. Dickerson. Dr. Dickerson recommending repeat labs. Informed patient of same. Patient will have labs at [facility]. Will follow-up with patient with results and next steps. Marla Shah PhD RN aerial photograph interpreter Otolaryngology documented in this encounter Plan of Treatment Upcoming Encounters Date Type Department Care Team (Late st Contact Info) Description 03/30/2024 10:00 AM EST Office Visit Otolaryngology [facility] [address] [place] [address] Spencer Dean, [address] [place] [address] 07/04/2024 12:00 PM EST [facility] [address] [facility] [id number] Ada Waterman PA-C [address] [facility] [id number] Pending Results Name Type Priority Associated Diagnoses Date /Time PTH Lab STAT S/P parathyroidectomy 03/25/2024 9:28 AM EST Scheduled Orders Name Type Priority Associated Diagnoses Orde r Schedule PTH Lab STAT S/P parathyroidectomy Expected: 03/25/2024, Expires: Health Maintenance Due Date Last Done Comments DISCUSS TOBACCO CESSATION (REFER TO SMARTSET #[id number]) 1968 Cologuard 2013 Colonoscopy 2013 Fecal Occult [...] as of this encounter Results * CALCIUM (03/25/2024 9:28 AM EST) CALCIUM 9.4 8.4 - 10.2 mg/dL 03/25/2024 9:50 AM EST [facility] Blood Venous blood specimen / Unknown Venipuncture / Unknown 03/25/2024 9:28 AM EST 03/25/2024 9:28 AM EST [facility] Awais Dickerson MD LAB BLOOD ORDERABLES [facility] al Result [facility] [place] [facility] [address] [facility] [place] [address] documented in this encounter Visit Diagnoses Diagnosis [...] Discussed due to patient's condition Care Teams Sound Person Relationship Specialty Start Date End Date Aad Waterman PA-C [address] [facility] [place] [address] PCP - General Physician Projects Manager 09/02/22 documented as of this encounter
[2024-03-27 06:58] LABS: Hematocrit (blood only) 41.5 % (37.0-47.0); Hemoglobin 14.2 g/dl (12.0-16.0); Mean Corpuscular Hemoglobin 29.6 pg (25.0-34.0); Mean Corpuscular Hgb Conc 34.2 g/dL (32.0-36.0); Mean Corpuscular Volume 86.5 fL (80.0-100.0); Mean Platelet Volume 10.7 fL (9.4-12.4); Platelet Count 259 K/uL (130-400); RDW Coefficient of Variation 12.9 % (11.5-14.5); RDW Standard Deviation 40.4 fL (36.4-46.3); White Blood Count 13.27 K/ul (4.8-10.8)
[2024-03-27 07:17] LABS: BUN Creatinine Ratio 14.3 (10-20); Calcium 8.5 mg/dl (8.6-10.3); Creatinine Clr Calc Pharmacy 74.8 ml/min; Magnesium 1.7 mg/dl (1.7-2.4); Phosphorus 5.9 mg/dl (2.5-4.9)
[2024-03-27 07:37] LABS: Estimated Average Glucose 151 mg/dl; Hemoglobin A1C 6.9 % (4.5-5.6)
[2024-03-27] MEDS: LANTUS PER UNIT CHARGE SC SCH (08:41)
[2024-03-27] MEDS: MAGNESIUM SULFATE / D5W 1 GM/100 ML BAG IV ONE (09:26)
[2024-03-27 12:36] VITALS: BP 141/87; PULSE 63; RESP 20; TEMP 98.2; O2SAT 92
--- NOTE | 2024-03-27 12:44 | Discharge Summary ---
Discharge Summary Date of Service March 27, 2024 Principal Dx & Hospital Course #1 = Principal Diagnosis (1) S/P parathyroidectomy: (2) Complaint of paresthesia: (3) Electrolyte disturbance: Ranjan Purcell is a 53y/o F with PMHx significant for DM type II, diabetic peripheral neuropathy, primary hyperparathyroidism s/p parathyroidectomy [performed on 03/21/2024 @ [facility]], HTN, hypothyroidism, tobacco use disorder and anxiety who presented to the ED on 03/25/2024 secondary to chest pain/shortness of breath and numbness/tingling of her face plus upper extremities. Outpatient calcium levels were WNL at 9.6 on 03/22/2024 and 9.9 on 03/24/2024. Primary Hyperparathyroidism S/P Parathyroidectomy, Paresthesias & Electrolyte Abnormalities: Patient recently underwent parathyroidectomy on 03/21/[address] Sarah Dickerson [Otolaryngology] at [facility]. Patient with poor oral intake for several days prior to arrival due to nausea. She had been experiencing paresthesias of her face and bilateral upper extremities postoperatively as well; she was subsequently referred to the ED for evaluation by Dr. Dickerson to assess for dehydration and electrolyte imbalances. D-Dimer was elevated at 570 in the ED; chest CTA revealed edema subcutaneous emphysema within the midline lower neck, no discrete drainable postoperative fluid collections identified. Chest CTA results were reviewed with [facility] on-call ENT, Dr. Tapan Clifton - felt the results reflected normal postoperative findings. Patient was found to have numerous electrolyte imbalances including hypokalemia, hypomagnesemia and hypocalcemia in addition to low vitamin D level. Her potassium level improved with IV and oral repletion. She received multiple doses of IV magnesium replacement as well and was subsequently started on oral magnesium supplementation. Calcium and ionized calcium levels continue to remain low on her home calcium repletion regimen. Case was discussed with [place] [facility] --> calcitriol increased to 0.5mcg TID & calcium carbonate increased to 1000mg TID. Vitamin D supplementation was also started. Home Lasix was stopped. She has a follow-up appointment scheduled with [facility] paramjit bacon, 03/28/2024. She will need close PCP follow-up as well which is to be arranged. Hypoxia - RESOLVED & Atelectasis: Was noted to be mildly hypoxic in the ED, likely 2/2 IV Ativan administration for increased anxiety. Now off supplemental O2, saturating well on RA. SOB improved. Procalcitonin was negative, patient with minimal cough. CXR on admission revealed linear bibasilar densities favoring atelectasis. Encouraged to continue incentive spirometry. Chest Pain - RESOLVED: Feel likely related to above/anxiety, ACS ruled-out. EKG on presentation reviewed and without any evidence of overt acute ischemia. Repeat troponins were negative and patient reports her chest pain has resolved. Echo performed during this admission was remarkable. Tobacco Use Disorder: Smokes 1/2 PPD, smoking cessation encouraged. Patient requesting nicotine patch at discharge which was sent to her pharmacy. DM Type II: Hgb A1c 6.9% this admission. Can resume home diabetic medications upon discharge. Was on a basal/bolus regimen for tighter BSG control while inpatient. Anxiety: Patient suffering from worsening anxiety from recent medical events. Anxiety seems to be improving at time of discharge. Prescription sent for oral hydroxyzine to take PRN for worsening anxiety. Headache, History of Migraines: Headache and BUE/facial paraesthesias are improving. Head CT this admission was unremarkable. Prescription sent for oral Compazine to take as needed for nausea/vomiting although nausea is improved at time of discharge. Neurology saw and evaluated the patient during this admission and suspected her hypomagnesemia was culprit for her headaches. She was started on a oral magnesium supplement as per above. Recent outpatient brain MRI on 03/03/24 was unremarkable. HTN: Continue home lisinopril, BP remains stable at time of discharge. Other Chronic Medical Conditions: Hypothyroidism --> Can continue home levothyroxine, TSH WNL this admission. PCP: Ada Waterman PA-C Disposition: Patient is being discharged home in good condition with close endocrinology, otolaryngology and PCP outpatient follow-up appointments. Work release form provided at time of discharge. Patient seen in collaboration with Dr. Farah. Please see addendum. I spent a total of 65 minutes coordinating, documenting, and providing care for this patient excluding time spent in the performance of separately billed services. This included personally reviewing all current laboratories and imaging studies, medical reconciliation, outpatient chart review and discussion with specialists. This chart was completed in part utilizing Speech Voice Recognition Software. Grammatical errors, random word insertions, pronoun errors, and incomplete sentences are an occasional consequence of this system due to software limitations, ambient noise, and hardware issues. Any formal questions or concerns about the content, text, or information contained within the body of this dictation should be directly addressed to the provider for clarification. Notes For Next Care Provider Patient needs to complete short-term disability paperwork. She has been provided with a work release form to be off through 04/17/2024. Medication Changes From Visit 1. Calcitriol dose increased from 0.25mcg twice daily to 0.5mcg THREE TIMES A DAY. 2. Calcium carbonate (TUMS) dose increased from 600mg three times a day to 1000mg THREE TIMES A DAY. 3. Patient also started on vitamin D and magnesium supplementation. Her home Lasix was stopped due to electrolyte abnormalities. Admission HPI Per Admitting Provider This is a 53-year-old female who has a significant past medical history of T2DM, diabetic peripheral neuropathy, tobacco use disorder, primary hyperparathyroidism and anxiety who presents to ED secondary to chest pain, shortness of breath, numbness and tingling to face and upper extremities. Of significance patient underwent a parathyroid exploration with parathyroidectomy on 03/21/[address] Nixon Dickerson. Since that surgery she was discharged to home and has been feeling unwell. She has been not been eating/drinking much due to nausea. She also reports intermittent tingling to her face, lips and upper extremities. She states that she was told when this occurs that she is to chew 2 extra Tums, wait 30 minutes and if still present to 2 more. She is very anxious that nothing has gone as planned since prior to the surgery. She was told she was only going to have 1 parathyroid gland removed and ended up having 3.5. She states she is expected to go back to work next week and does not know how she is going to do so. She states last evening and this morning she developed substernal chest pain with associated shortness of breath that accompanied her numbness and tingling. The chest pain and shortness of breath lasted for approximately 10 to 15 minutes. It occurred while she was at rest. Nothing made it better or worse. She is never experienced any like this before. She feels that her chest pain occurs whenever she is very, "worked up." She states that prior to her surgery she has been having intermittent tearful episodes. She states this is much worse since her surgery. She did have outpatient blood work done the past 2 days that showed a normal calcium. Wh enever she called her ENT she was referred to ED to her due to her symptoms. In ED patient remained hemodynamically stable. She was mildly hypertensive in the ED. She did become hypoxic requiring oxygen via nasal cannula supplementation after administration of IV Ativan due to anxiety. She did have a mild leukocytosis of 14,000. Her potassium was low at 3.4 and magnesium was low at 1.1. She underwent a chest CTA due to an elevated D-dimer which showed expected postoperative changes. ED provider spoke with on-call ENT at [facility] and reviewed imaging who agreed. She reports she lives and sister. Her sister helps manage her medical problems. 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 She smokes 1/2 ppd. She also reports chronic headaches. She has been using scopolamine patches regularly and even more than prescribed. She is been using the mostly daily. When she takes them off she gets a severe headache, nausea and vomiting. Admission Exam Per Admitting Provider Constitutional: WD/WN, acute ill appearing F, appears exhausted, anxious, vitals as above, sitting up in bed, pleasant, conversing easily Head: Normocephalic, Atraumatic Eyes: PERRL, conjunctivae normal, anicteric sclerae ENMT: external ear and nose normal, oropharynx dry Neck: trachea midline, no thyromegaly +incision, surrounding soft tissue edema no erythema Respiratory: normal respiratory effort, lungs clear to auscultation, +rales at based no wheeze/rhonchi. Normal insp/exp effort, no accessory muscle use Cardiovascular: RRR, no murmur, no edema Vessels: no JVD or carotid bruit Chest: normal inspection of chest Abdomen: normal bowel sounds, soft, nontender, no hepatosplenomegaly Musculoskeletal: no cyanosis or clubbing, extremities motor strength 5/5 Skin: no rashes, warm and dry normal turgor Neurologic: PERRL, EOMI, accommodation nl, no face palsy, no dysarthria CN's II-XI intact bilaterally and moves all extremities Psychiatric: A+Ox3, euthymic affect Lymphatic: no cervical or axillary lymphadenopathy : deferred Discharge Exam General: Ill-appearing F, NAD, sitting up eating in bed with family at bedside, very pleasant, appears less tired, A+Ox3, conversing appropriately. HEENT: Normocephalic/conjunctivae normal. Soft tissue neck edema improving, + parathyroidectomy incision, trachea midline. Oropharynx normal. Respiratory: Normal respiratory effort, lungs clear to auscultation bilaterally, no wheeze/rales/rhonchi. No accessory muscle use or tachypnea. Cardiovascular: Regular rate, rhythm, normal peripheral pulses, no BLE edema. Vessels: No evidence of JVD. Abdomen/GI: Normal bowel sounds, soft, nontender to palpation in all quadrants. Extremities/Musculoskeletal: No cyanosis or clubbing, able to actively move all extremities, extremity motor strength intact. Neurologic: No overt focal deficits, CN's II-XI not formally tested but appear grossly intact bilaterally. Skin: No rashes, normal color, warm/dry. Erythema around parathyroidectomy incision improving, overlying bandaging is dry/intact w/o drainage. Updated Medication List Medication Instructions Recorded Confirmed Type dulaglutide 3 mg/0.5 mL 3 mg subcut UD 01/26/24 03/25/24 History subcutaneous pen injector (Trulicity) glipizide 5 mg tablet 5 mg PO BID PRN Blood Sugar Level 01/26/24 03/25/24 History when testing lisinopril 2.5 mg tablet 2.5 mg PO HS 01/26/24 03/25/24 History meclizine 25 mg tablet 12.5 - 25 mg PO TID PRN Dizziness 01/26/24 03/25/24 History Or Vertigo simvastatin 20 mg tablet 20 mg PO HS 01/26/24 03/25/24 History blood sugar diagnostic (OneTouch 02/12/24 02/26/24 History Ultra Test strips) lancets 33 gauge (OneTouch Delica 02/12/24 02/26/24 History Plus Lancet) levothyroxine 112 mcg tablet 112 mcg PO DAILY #30 tabs 03/03/24 03/25/24 Rx selenium 200 mcg tablet 200 mcg PO DAILY #30 tabs 03/03/24 03/25/24 Rx rizatriptan 10 mg disintegrating 10 mg PO DIRECTED PRN Migraine 03/25/24 03/25/24 History tablet Headache tramadol 50 mg tablet 50 mg PO DIRECTED PRN Pain 03/25/24 03/25/24 History calcitriol 0.25 mcg capsule 0.5 mcg (2 x 0.25 mcg) PO TID 2 03/27/24 Rx weeks #84 caps calcium carbonate (Tums) 1,000 mg (5 x 200 mg calcium (500 03/27/24 Rx mg)) PO TID 2 weeks #210 tabs ergocalciferol (vitamin D2) 1,250 1,250 mcg PO Q7D 1 month #5 caps 03/27/24 Rx mcg (50,000 unit) capsule hydroxyzine HCl 10 mg tablet 10 mg PO Q4H PRN anxiety #20 tabs 03/27/24 Rx magnesium chloride 64 mg 64 mg PO DAILY #30 tabs 03/27/24 Rx (magnesium chloride) tablet nicotine 7 mg/24 hr daily 1 patch transdermal QAM 2 weeks 03/27/24 Rx transdermal patch #14 ea prochlorperazine maleate 5 mg 5 mg PO Q8H PRN nausea and 03/27/24 Rx tablet vomiting #20 tabs Hospital Stay Data Consultations 03/25/24 14:15 ED Decision to Admit Stat 03/25/24 15:45 Consult Neurology Routine Diagnostic Imagining Performed 03/25/24 12:21 CT angio chest PE protocol Stat 03/26/24 10:19 CT head/brain wo con Urgent Pending Results Patient Have Any Pending Studies at Discharge: No Discharge Instructions Given to Patient (Per Discharging Provider) Landry Tapia were admitted to the hospital on 03/25/2024 due to multiple electrolyte disturbances, facial/bilateral upper extremity paresthesias, increasing fatigue, chest pain and ongoing headache after undergoing parathyroidectomy on 03/21/2024. You were managed for multiple electrolyte disturbances throughout your admission including low potassium level, low magnesium level, low calcium levels and low vitamin D level. We performed a full cardiac workup and head CT - both of which were unremarkable. You were also seen by neurology who suspected that your low magnesium level was the cause of your ongoing headache. Paresthesias, also known as numbness/tingling, can be common in your face and extremities due to low calcium levels as we had discussed. We made multiple medication changes as outlined below to increase your calcium levels as recommended by Dr. Chaparro with [facility]. You will have close follow-up with the endocrinology off ice tomorrow as detailed below. You will be contacted very soon to arrange a hospital discharge follow-up appointment. If you do not hear anything by tomorrow, please call this number to schedule an appointment directly: [phone]. You will need routine outpatient lab work done to monitor your electrolyte levels as we had previously discussed. This can be arranged at your endocrinology appointment tomorrow. Prescriptions for both oral hydroxyzine to take as needed for increased anxiety and oral Compazine to take as needed for nausea/vomiting were sent to your pharmacy like we had discussed. You are also being provided with a work excuse in addition to a daily nicotine patch - which was sent to your pharmacy. OUTLINED MEDICATION CHANGES: 1. Calcitriol dose increased from 0.25mcg twice daily to 0.5mcg THREE TIMES A DAY. 2. Calcium carbonate (TUMS) dose increased from 600mg three times a day to 1000mg THREE TIMES A DAY. 3. You were started on a vitamin D supplement to take WEEKLY as your vitamin D levels were lower than normal. 4. You were started on a magnesium supplement to take DAILY as your magnesium levels were lower than normal. * We STOPPED your home Lasix as this medication can alter your electrolyte levels. You can continue to take all of your other home medications as previously prescribed. UPCOMING APPOINTMENTS Date & Time: 03/28/2024 @ 2PM Provider & Specialty: Nicola Santiago PA-C @ [facility] Date & Time: 03/30/2024 @ 11AM Provider & Specialty/Location: Dr. Spencer Dean [[facility]] @ [facility] Seek medical attention if you have: * temperature above 101F * chest pain or trouble breathing * abdominal pain, nausea, vomiting * diarrhea, dark stools or bloody stools * any unanswered questions or concerns Call 911 if symptoms are severe. Please take good care of yourself. It has been a pleasure taking care of you. If you have any questions regarding your recent hospitalization please contact [facility] and request [facility]respo[facility] @ [phone]. Total Time Total Time Spent Total Time Spent (In Minutes): 65 Supervising Physician Co-Signing Physician Notes Patient seen and examined Agree with plans as detailed by Irma Wilkes PA-C
== END 2024-03-27 13:05 | disposition home or self-care (01) | DRG 641 ==
LOC: ED 10:55 → SUATTDRO 14:27 → 2S 14:27